=== PATIENT | male | born 1955 | race Caucasian/White ===

== ENCOUNTER 2017-11-30 22:28 | Observation (INO) | payer MEDICARE, MEDICAID, SELFPAY ==
[2017-11-30 22:29] VITALS: BP 141/94; PULSE 90; RESP 15; TEMP 37.2; O2SAT 96; BMI 30.2
--- NOTE | 2017-11-30 22:41 | CT_ITS ---
CT Head or Brain W/O Contrast INDICATION: ALTERED MENTAL STATUS AND INCREASING CONFUSION SINCE YESTERDAYHX:DIABETES,JAW CANCER,OSTEOGENISIS IMPERFECTA COMPARISON: May 28, 2016 , August 29, 2015 TECHNIQUE: Noncontrast axial CT examination of the brain. Radiation dose optimization technique applied. FINDINGS: The ventricular system is prominent in size, unchanged compared to the prior study with colpocephalic appearance suggestive of (partial) absence of the corpus callosum. Left anterior temporal arachnoid cyst is stable. Toure-white matter junction is distinct. There is no evidence of acute intracranial hemorrhage, mass effect, midline shift, or abnormal extra-axial collection. The calvarium is intact and the visualized paranasal sinuses and mastoid air cells are clear. 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 Left anterior temporal arachnoid cyst, stable. No acute intracranial abnormality. at 0017 Reported and signed by: Rosanna Laurent MD Electronically Signed: Rosanna Laurent MD at 23:15 EDT Tel , Service support ,
[2017-11-30 22:52] LABS: Absolute Neutrophil Count 4.6 X10^3/uL (2.0-7.7); Basophil# 0.02 X10^3/uL; Basophil% 0.2 % (0-1); Eosinophil# 0.18 X10^3/uL; Eosinophils% 2.2 % (0-5); Hematocrit 42.9 % (40-54); Hemoglobin 13.8 g/dl (13.0-16.5); Lymphocyte % 35.7 % (19-41); Mean Corp Hgb Conc 32.2 g/gl (32-36); Mean Corpuscular Hgb 29.2 pg (27.0-32.0); Mean Corpuscular Volume 90.7 fL (80-94); Mean Platelet Vol. 10.3 fl (6.2-12.0); Monocyte# 0.45 X10^3/uL; Monocyte% 5.5 % (0-10); Neutrophil # 4.56 X10^3/uL (2.7-7.7); Neutrophil % 56.3 % (47-70); Platelet Count 301 K/mm3 (150-450); RBC Distribution Width CV 15.5 % (11.6-14.6); RBC Distribution Width SD 51.6 fl (35.1-43.9); Red Blood Count 4.73 M/mm3 (4.6-6.2); White Blood Count 8.1 K/mm3 (4.4-11.0)
[2017-11-30 22:54] LABS: POSITIVE COUNT NO; POSITIVE DIFFERENTIAL NO; POSITIVE MORPHOLOGY NO
[2017-11-30 23:06] LABS: Bacteria 0 SEEN /hpf (None Seen); Mucous, Urine 0 SEEN /hpf (<or=2+); Red Blood Cells-Urine 0 SEEN /hpf (0-5); White Blood Cells 0 SEEN /hpf (0-5)
[2017-11-30 23:07] LABS: Color, Urine Yellow (Yellow); Glucose, Dipstick Normal (Normal); Ketone-Dipstick Negative (Negative); Leukocyte Esterase-Dipstick Negative /ul (Negative); Nitrite-Dipstick Negative (Negative); Occult Blood-Urine Negative /ul (Negative); Protein-Dipstick Negative (Negative); Urine Bilirubin Dipstick Negative (Negative); Urine Clarity Clear (Clear); Urine Urobilinogen Normal (Normal)
--- NOTE | 2017-11-30 23:08 | ED.VISSUMM ---
- ER Visit Summary Date of Service: 11/30/17 Chief Complaint: Sent to ER for evaluation. History of Present Illness: The patient is a 62 M is disoriented to time and place who answers no to every question asked. Review of old records reveals history of type 2 diabetes and encephalopathy. He also had surgery for a right intertrochanteric fracture. He is on Xarelto. Uncertain why. Physical Examination: Vital signs are marked for slight elevation blood pressure 141/94. Head is atraumatic no cephalic. Pupils equal round reactive. Extra muscle intact. TMs are normal. Posterior pharynx without erythema or exudate. Trachea is midline. No carotid bruit. Neck is supple. Heart is regular without murmur, gallop or rub. Lungs are clear to auscultation. Abdomen is soft nontender. He has evidence of progressive disease lower extremity with discolored feet. Cap refill is normal. Alert but not oriented. There is a slight facial droop noted on the left. He moves all extremities. There is no clonus or Babinski sign noted. Test Results: CT of the head reveals no change from prior. He has a left arachnoid cyst noted. CBC is normal. Electrode panel is normal. Hepatic panel is normal. UA is normal. Emergency Department Course and Treatment: Because he is on Xarelto change in mental status will obtain CT to rule out intracranial process. Metabolic infectious workup was undertaken as well and a CBC and electrode panel was ordered as well as UA. I was told by his nurse that state he had nausea and vomiting. Treatment Plan: is present. She states he normally is oriented. He has not been behaving normally for the past 24-48 hours. He was admitted in the past for change in mental status and no cause was determined. Since patient is on Xarelto lumbar puncture is contraindicated. Disposition: Admit [facility] for acute mental status change/encephalopathy unknown etiology Impression: 1. Acute mental status change/encephalopathy of unknown etiology 2. History of type 2 diabetes This note was generated with [employer] dictation software. It may contain incorrect words, spelling, and punctuation that were not noted in review of the chart prior to signing ED Disposition - Plan for ED Patient: Disposition: Acute Care Hospital [facility] Chief Complaint: Confusion Referrals: [facility] Doctor,Out of [Primary Care Provider] -
[2017-11-30 23:11] LABS: AST(SGOT) 15 U/L (15-37); Alanine Aminotransfer ALT/SGPT 22 U/L (16-61); Albumin, Serum 4.2 g/dL (3.2-5.0); Alkaline Phosphatase 57 U/L (45-117); Anion Gap 13 (5-15); BUN 13 mg/dL (7-18); BUN/Creat Ratio 19.8 RATIO (10-20); Bilirubin, Direct 0.11 mg/dL (0.00-0.30); Chloride 104 mmol/L (98-107); Creatinine, Serum 0.66 mg/dL (0.70-1.30); EST Glomerular Filtration Rate 130 mL/min (>60); Est Glom Filt Rate - Afr Amer 158 mL/min (>60); Estimated Creatinine Clearance 134.92 ml/min; Globulin 3.8 g/dL (2.2-4.2); Glucose 155 mg/dL (74-106); Potassium 4.1 mmol/L (3.5-5.1); Sodium Level 140 mmol/L (136-145)
[2017-11-30 23:13] LABS: Squamous Epithelial Cells - UA 0-5 SEEN /hpf (0-5)
--- NOTE | 2017-11-30 23:13 | ED.DCSUM_ITS ---
- ER Visit Summary Date of Service: 11/30/17 Chief Complaint: Sent to ER for evaluation. History of Present Illness: The patient is a 62 M is disoriented to time and place who answers no to every question asked. Review of old records reveals history of type 2 diabetes and encephalopathy. He also had surgery for a right intertrochanteric fracture. He is on Xarelto. Uncertain why. Physical Examination: Vital signs are marked for slight elevation blood pressure 141/94. Head is atraumatic no cephalic. Pupils equal round reactive. Extra muscle intact. TMs are normal. Posterior pharynx without erythema or exudate. Trachea is midline. No carotid bruit. Neck is supple. Heart is regular without murmur, gallop or rub. Lungs are clear to auscultation. Abdomen is soft nontender. He has evidence of progressive disease lower extremity with discolored feet. Cap refill is normal. Alert but not oriented. There is a slight facial droop noted on the left. He moves all extremities. There is no clonus or Babinski sign noted. Test Results: CT of the head reveals no change from prior. He has a left arachnoid cyst noted. CBC is normal. Electrode panel is normal. Hepatic panel is normal. UA is normal. Emergency Department Course and Treatment: Because he is on Xarelto change in mental status will obtain CT to rule out intracranial process. Metabolic infectious workup was undertaken as well and a CBC and electrode panel was ordered as well as UA. I was told by his nurse that state he had nausea and vomiting. Treatment Plan: is present. She states he normally is oriented. He has not been behaving normally for the past 24-48 hours. He was admitted in the past for change in mental status and no cause was determined. Since patient is on Xarelto lumbar puncture is contraindicated. Disposition: Admit [facility] for acute mental status change/encephalopathy unknown etiology Impression: 1. Acute mental status change/encephalopathy of unknown etiology 2. History of type 2 diabetes This note was generated with [employer] dictation software. It may contain incorrect words, spelling, and punctuation that were not noted in review of the chart prior to signing ED Disposition - Plan for ED Patient: Disposition: Acute Care Hospital [facility] Chief Complaint: Confusion Referrals: [facility] Doctor,Out of [Primary Care Provider] -
[2017-11-30 23:16] LABS: Bedside Glucose 164 mg/dL (70-110)
[2017-11-30 23:27] VITALS: BP 153/100; PULSE 85; RESP 12; O2SAT 96
[2017-12-01] VITALS (14 sets, daily range): BP systolic 123–143; BP diastolic 76–85; PULSE 78–101; RESP 16–18; TEMP 37.2–37.4; O2SAT 94–97; BMI 26.8
--- NOTE | 2017-12-01 03:04 | HP.PCM_ITS ---
Problem List (1) Right leg DVT Status: Acute (2) Encephalopathy Status: Acute (3) Fracture, intertrochanteric, right femur Status: Acute (4) Chronic back pain Status: Chronic (5) Type II diabetes mellitus Status: Chronic History of Present Illness Date of Admission: 12/01/17 Chief Complaint: Acute encephalopathy The patient is a 62 year old male w/ h/o encephalopathy, right leg DVT, and HTN admitted for encephalopathy. He was confused this morning per . He is a poor historian. He went to rehab on Friday and did well. Yesterday, he was mostly sleepy and slept for most of the day. This morning he is not himself and cannot answer his with coherent answers. Nothing appeared to make his confusion better or worse. His confusion was severe that it interfered with his ADLs. His became concerned and brought him to the ED for further workup. Past Medical History Past Medical History (Chronic Problems): Chronic Problems Low back pain (Chronic) Type II diabetes mellitus (Chronic) Chronic back pain (Chronic) Osteogenesis imperfecta (Chronic) Allergies fentanyl Adverse Reaction (Verified 12/01/17 02:15) lethargic, unresponsive, hallucinations morphine Adverse Reaction (Verified 12/01/17 02:15) lethargic, unresponsive, hallucinations IVP DYE Allergy (Uncoded 12/01/17 02:15) Anaphylaxis Home Medications: Ambulatory Orders Medication Instructions Recorded Ascorbic Acid [Vitamin C] 1,000 mg PO BIDCM 06/17/15 Furosemide [Lasix] 10 mg PO DAILY 06/17/15 Liraglutide [Victoza 3-Amrik] 1.2 mg SQ DAILY 06/17/15 Metformin HCl 1,000 mg PO BID 06/17/15 Vitamin E 400 unit PO DAILY 06/17/15 Calcium Carbonate [Calcium] 600 mg PO BID #0 08/29/15 Insulin Lispro [Humalog] See Protocol SQ 4X/DAY 08/29/15 Cholecalciferol (Vitamin D3) 1 capsule PO DAILY 05/28/16 [Vitamin D3] Fenofibrate,Micronized [Lofibra] 200 mg PO DAILY 05/28/16 Baclofen [Baclofen] 20 mg PO TID 12/01/17 Cyanocobalamin (Vitamin B-12) 2,500 mcg PO DAILY 12/01/17 [Vitamin B-12] Docusate Sodium [Colace] 100 mg PO BID 12/01/17 Folic Acid 0.8 mg PO DAILY@0800 12/01/17 GlipiZIDE [Glucotrol] 10 mg PO 4X/DAY 12/01/17 Hydrocodone Bitart/Apap 5-325 1 - 2 tablet PO Q6H PRN PRN 12/01/17 [[place] 5MG-325MG] Metformin HCl 500 mg PO QHS 12/01/17 [place]-3 Fatty Acids/Fish Oil [Fish 1,000 mg PO DAILY 12/01/17 Oil 1,000 mg Capsule] Omeprazole [Prilosec] 20 mg PO DAILY 12/01/17 Senna/Docusate Sodium [Senokot-S] 2 tablet PO MOWEFR 12/01/17 Sertraline HCl [Zoloft] 50 mg PO QHS 12/01/17 Tadalafil [Cialis] 5 mg PO PRN PRN 12/01/17 Surgical History: appendectomy, total knee arthroplasty, - - Hiatal hernia surgery. Psychiatric History: No pertinent psych hx Smoking Status: Former smoker Tobacco Use: Non-smoker Alcohol: None Drugs: None - *Family History Maternal History Items: - - No coronary artery disease. Alcohol abuse. Paternal History Items: Stroke Review of Systems Constitutional: Denies: Chills, Fever, Weight Change HEENT: Denies: Head Aches, Sinus Congestion, Sinus Drainage Cardiovascular: Denies: Chest Pain, Palpitations Respiratory: Denies: Cough, Shortness of breath at rest, Sputum production Gastrointestinal: Denies: Abdominal Pain, Nausea, Vomiting Genitourinary: Denies: Dysuria Musculoskeletal: Denies: Joint Pain, Joint Tenderness Skin: Denies: Rash, Wounds Neurological: Denies: Numbness, Tingling, Focal weakness Psychiatric: Denies: Anxiety, Depression, Homicidal Ideations, Suicidal Ideations Hematologic/ Lymphatic: Denies: Easy Bruising, Easy Bleeding VTE Information - Inpt Only VTE Present on Admission: No VTE Mechan Device Prophylaxis: None VTE Pharm Prophylaxis ordered?: No Patient Problems: Active and Suspected Problems Right leg DVT (Acute) - Physical Exam General: Alert, Oriented x3, Cooperative HEENT: Atraumatic, PERRLA, EOMI, Normocephalic Neck: Supple, No JVD, Negative Carotid Bruits Lungs: Clear to auscultation, Normal air movement Cardiovascular: Regular rate, No murmurs Abdomen: Bowel Sounds Present, Soft, Non Tender Extremities: No edema, Capillary Refill Less than 3 Seconds Skin: No rashes, No breakdown Musculoskeletal: No Tenderness to Palpation of Joints or Extremities Neurological: Cranial nerves II-XII grossly intact Psych/Mental Status: Normal Affect, Appropriate Vital Signs Temp Pulse Resp BP Pulse Ox 99.2 F H 86 18 128/78 H 96 12/01/17 02:09 12/01/17 02:09 12/01/17 02:09 12/01/17 02:09 12/01/17 02:09 Oxygen Delivery Method Room Air Weight: 102.5 kg Body Mass Index (BMI) 26.8 Assessment/Plan Active and Suspected Problems Right leg DVT (Acute) 62 year old male w/ h/o encephalopathy, right leg DVT, and HTN admitted for encephalopathy. 1) Acute encephalopathy: Unclear etiology. Possible secondary to high dose narcotics and flexeril. He was on norco, percocet and flexeril. Will consider neuro to possible r/o subclinical seizure if persistent. Will get B12, folate, RPR, ammonia, and TSH. Will hold anticoagulation if just in case pt turns for the worse and needs LP in the future. Cultures pending. 2) Right leg DVT: Years ago. Per pt was on xarelto but not on meds list. Probably won't need further anticoagulation given one time incident and no e/o PE. No trigger noted. 3) Chronic pain: Will hold sedative meds. Will also try to avoid NSAID as well given possible JULITO with NSAID. Will give acetaminophen if needed. 4) DMII: Resume home meds. Monitor.
[2017-12-01 03:19] LABS: AST(SGOT) 13 U/L (15-37); Alanine Aminotransfer ALT/SGPT 21 U/L (16-61); Albumin, Serum 3.8 g/dL (3.2-5.0); Alkaline Phosphatase 51 U/L (45-117); Bilirubin, Direct 0.11 mg/dL (0.00-0.30); Globulin 3.7 g/dL (2.2-4.2); Protein, Total 7.5 g/dL (6.4-8.2)
[2017-12-01 03:22] LABS: Vista UDS pH Range 7
[2017-12-01] MEDS: 0.9% NaCl Peripheral Flush Adult/Peds IV (03:50)
[2017-12-01 03:59] LABS: Amphetamine Urine VISTA NEGATIVE (<1000 ng/mL); Barbiturate Urine VISTA NEGATIVE (< 200 ng/mL); Benzodiazepine Urine VISTA NEGATIVE (< 200 ng/mL); Cocaine Urine VISTA NEGATIVE (< 300 ng/mL); Ecstacy Urine VISTA NEGATIVE (< 500 ng/mL); Methadone Urine VISTA NEGATIVE (< 300 ng/mL); PCP Urine VISTA NEGATIVE (< 25 ng/mL); THC Urine VISTA NEGATIVE (< 50 ng/mL)
[2017-12-01] MEDS: Acetaminophen 325 MG Tablet 650 MG PO (04:31)
[2017-12-01 06:07] LABS: Absolute Lymphocyte Count 3.22 X10^3/ul (0.83-4.51); Absolute Neutrophil Count 5.8 X10^3/uL (2.0-7.7); Basophil# 0.02 X10^3/uL; Basophil% 0.2 % (0-1); Eosinophil# 0.18 X10^3/uL; Eosinophils% 1.8 % (0-5); Hematocrit 39.6 % (40-54); Hemoglobin 13.1 g/dl (13.0-16.5); Lymphocyte # 3.22 X10^3/ul (4.0); Lymphocyte % 32.3 % (19-41); Mean Corp Hgb Conc 33.1 g/gl (32-36); Mean Corpuscular Hgb 29.8 pg (27.0-32.0); Mean Platelet Vol. 10.2 fl (6.2-12.0); Monocyte# 0.71 X10^3/uL; Monocyte% 7.1 % (0-10); Neutrophil # 5.82 X10^3/uL (2.7-7.7); Neutrophil % 58.4 % (47-70); Platelet Count 281 K/mm3 (150-450); RBC Distribution Width CV 15.5 % (11.6-14.6); RBC Distribution Width SD 50.9 fl (35.1-43.9)
[2017-12-01 06:17] LABS: POSITIVE COUNT NO; POSITIVE DIFFERENTIAL NO; POSITIVE MORPHOLOGY NO
[2017-12-01 06:30] LABS: Anion Gap 10 (5-15); BUN 12 mg/dL (7-18); BUN/Creat Ratio 20.3 RATIO (10-20); Calcium,Total 9.4 mg/dL (8.5-10.1); Chloride 107 mmol/L (98-107); Creatinine, Serum 0.59 mg/dL (0.70-1.30); EST Glomerular Filtration Rate 147 mL/min (>60); Est Glom Filt Rate - Afr Amer 178 mL/min (>60); Glucose 131 mg/dL (74-106); Potassium 3.7 mmol/L (3.5-5.1); Sodium Level 142 mmol/L (136-145)
[2017-12-01 06:56] LABS: Bedside Glucose 157 mg/dL (70-110)
[2017-12-01] MEDS: Docusate Sodium 100 MG Capsule PO ×2 (09:32→22:37)
[2017-12-01] MEDS: Calcium Carbonate 500 MG Tablet PO ×2 (09:32→22:38)
[2017-12-01] MEDS: Pantoprazole Sodium 20 MG Tablet PO (09:33)
[2017-12-01] MEDS: Folic Acid 1 MG Tablet PO (09:33)
[2017-12-01] MEDS: Senna/Docusate Sodium 1 Tablet 2 TABLET PO (09:33)
[2017-12-01] MEDS: Ascorbic Acid 500 MG Tablet 1000 MG PO ×2 (09:33→18:09)
[2017-12-01] MEDS: Omega-3 Acid Ethyl Esters 1 GM Capsule PO (09:33)
[2017-12-01] MEDS: Fenofibrate 145 MG Tablet PO (09:34)
[2017-12-01] MEDS: Vitamin E 400 UNITS Capsule PO (09:34)
[2017-12-01] MEDS: metFORMIN HCl 1,000 MG Tablet 1000 MG PO (09:34)
--- NOTE | 2017-12-01 09:34 | CASEMGMT ---
RN KYA Face to Face with patient for initial transition planning/care coordination assessment. RN CM introduced self and role at [facility]. Patient sitting in up in bed, alert and confused. Patient willing to participate in assessment and is able to answer some questions. See link attached. Patient wishes to discharge home, denies need for home health at this time. Patient lives with and CM will follow-up with to discuss discharge needs. CM to follow for discharge planning needs that may arise. Disposition Plan: TBD. CM to follow-up with to discuss discharge needs and plan. Will monitor progress with therapy.
--- NOTE | 2017-12-01 09:46 | NURSING ---
paged from [facility] for the second time as primary RN verbalized concern regarding patient's level of confusion. Called Rehab unit to verify if Dr. Swain has rounded there yet, informed that is not here this week that is covering. Calling answering service whom told us this a.m. was covering, verified that they will page and inform the correct physician as is covering. Informed them we are requesting he see this patient as soon as possible, answering service said they will inform of this. PRimary RN updated.
[2017-12-01 10:42] LABS: Vitamin B12 > 2000 pg/mL (211-911)
[2017-12-01 12:01] LABS: Bedside Glucose 225 mg/dL (70-110)
--- NOTE | 2017-12-01 15:07 | PCM.CONS.GEN ---
Problem List (1) Encephalopathy Status: Acute Reason for Consult Date of Consultation: 12/01/17 Reason for Consultation: AMS History of Present Illness: The patient is a 62 year old CM with PMH HLD, DM, depression, H/O encephalopathy, H/O DVT per documentation admitted with AMS. History is obtained from the patient and medical records and documentation. Patient is a poor historian. Per he was doing physical therapy on Friday morning (11/29/17), then suddenly was shaking, found to have SBP >200s at home, then went to sleep, slept the whole day, the next day when he woke up was confused, had vomiting later on and he was admitted to [facility] for further evaluation. Per he has osteogenesis imperfecta and has recurrent fractures, had left leg fracture in June 2017 for which he has been on [place] and Flexeril. His Flexeril was stopped on Friday and he was started on Baclofen 20 mg TID. Patient's denies any new onset dementia, urinary incontinence and per he has been bed bound or using wheel chair since last summer, denies any frequent falls, may fall once in 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 Per documentation patient is being admitted with AMS, was on baclofen and multiple narcotics. Per hospitalist documentation patient was sleepy and lethargic yesterday (11/30/17). At present patient denies any PIERCE, is very hard of hearing, denies any new onset visual disturbances, speech disturbances, focal motor weakness, sensory loss, neck or back pain. Labs: WBC, Creatinine and UA normal on admission, UDS negative. [] Past Medical History Past Medical History (Chronic Problems): Chronic Problems Low back pain (Chronic) Type II diabetes mellitus (Chronic) Chronic back pain (Chronic) Osteogenesis imperfecta (Chronic) Allergies fentanyl Adverse Reaction (Verified 12/01/17 02:15) lethargic, unresponsive, hallucinations morphine Adverse Reaction (Verified 12/01/17 02:15) lethargic, unresponsive, hallucinations IVP DYE Allergy (Uncoded 12/01/17 02:15) Anaphylaxis Home Medications: Ambulatory Orders Medication Instructions Recorded Ascorbic Acid [Vitamin C] 1,000 mg PO BIDCM 06/17/15 Furosemide [Lasix] 10 mg PO DAILY 06/17/15 Liraglutide [Victoza 3-Amrik] 1.2 mg SQ DAILY 06/17/15 Metformin HCl 1,000 mg PO BID 06/17/15 Vitamin E 400 unit PO DAILY 06/17/15 Calcium Carbonate [Calcium] 600 mg PO BID #0 08/29/15 Insulin Lispro [Humalog] See Protocol SQ 4X/DAY 08/29/15 Cholecalciferol (Vitamin D3) 1 capsule PO DAILY 05/28/16 [Vitamin D3] Fenofibrate,Micronized [Lofibra] 200 mg PO DAILY 05/28/16 Baclofen [Baclofen] 20 mg PO TID 12/01/17 Cyanocobalamin (Vitamin B-12) 2,500 mcg PO DAILY 12/01/17 [Vitamin B-12] Docusate Sodium [Colace] 100 mg PO BID 12/01/17 Folic Acid 0.8 mg PO DAILY@0800 12/01/17 GlipiZIDE [Glucotrol] 10 mg PO 4X/DAY 12/01/17 Hydrocodone Bitart/Apap 5-325 1 - 2 tablet PO Q6H PRN PRN 12/01/17 [[place] 5MG-325MG] Metformin HCl 500 mg PO QHS 12/01/17 [place]-3 Fatty Acids/Fish Oil [Fish 1,000 mg PO DAILY 12/01/17 Oil 1,000 mg Capsule] Omeprazole [Prilosec] 20 mg PO DAILY 12/01/17 Senna/Docusate Sodium [Senokot-S] 2 tablet PO MOWEFR 12/01/17 Sertraline HCl [Zoloft] 50 mg PO QHS 12/01/17 Tadalafil [Cialis] 5 mg PO PRN PRN 12/01/17 Surgical History: appendectomy, total knee arthroplasty, - - Hiatal hernia surgery. Psychiatric History: No pertinent psych hx Lives: Spouse/ Significant Other Smoking Status: Current every day smoker Tobacco Use: Non-smoker Alcohol: None Drugs: None - *Family History Maternal History Items: - - No coronary artery disease. Alcohol abuse. Paternal History Items: Stroke Review of Systems Constitutional: Reports: - - complete ROS negative except as documented in HPI Patient Problems: Active and Suspected Problems Right leg DVT (Acute) - Physical Exam General: Alert HEENT: Normocephalic Neck: Supple Lungs: Clear to auscultation Cardiovascular: Normal S1, Normal S2 Abdomen: Bowel Sounds Present Extremities: No clubbing Skin: No rashes Musculoskeletal: No Tenderness to Palpation of Joints or Extremities Neurological: - - awake, alert, AoAx2, CN 2-12 grossly intact, moves all 4 extremities, denies any sensory loss, no cerebellar signs, very hard of hearing, limited neurology examination, Reflexes + B/L B/S/T/K/A, gait deferred Psych/Mental Status: Normal Affect Vital Signs Temp Pulse Resp BP Pulse Ox 99.3 F H 88 18 123/76 H 94 12/01/17 08:00 12/01/17 11:05 12/01/17 08:00 12/01/17 08:00 12/01/17 08:00 Oxygen Delivery Method Room Air Weight: 102.5 kg Body Mass Index (BMI) 26.8 Intake and Output for Last 24 Hours 11/29/17 11/30/17 12/01/17 22:59 23:59 23:59 Intake Total 110 / 110 Balance 110 / 110 Laboratory Tests Past 24 Hrs 12/01/17 12/01/17 12/01/17 02:37 02:37 02:37 WBC RBC Hgb Hct MCV MCH MCHC RDW RDW Differential Plt Count MPV Immature Gran % (Auto) Neut % (Auto) Lymph % (Auto) [place] % (Auto) Eos % (Auto) Baso % (Auto) Absolute Neuts (auto) Absolute Lymphs (auto) Total Counted Sodium Potassium Chloride Carbon Dioxide Anion Gap BUN Creatinine Estim Creat Clear Calc Est GFR (MDRD) Af Amer Est GFR (MDRD) Non-Af BUN/Creatinine Ratio Glucose Calcium Total Bilirubin 0.40 Direct Bilirubin 0.11 AST 13 L ALT 21 Alkaline Phosphatase 51 Ammonia Troponin I < 0.02 Total Protein 7.5 Albumin 3.8 Globulin 3.7 Vitamin B12 > 2000 H Folate 59.60 H RPR 12/01/17 12/01/17 12/01/17 02:37 02:37 05:40 WBC 10.0 RBC 4.40 L Hgb 13.1 Hct 39.6 L MCV 90.0 MCH 29.8 MCHC 33.1 RDW 15.5 H RDW Differential 50.9 H Plt Count 281 MPV 10.2 Immature Gran % (Auto) 0.200 Neut % (Auto) 58.4 Lymph % (Auto) 32.3 [place] % (Auto) 7.1 Eos % (Auto) 1.8 Baso % (Auto) 0.2 Absolute Neuts (auto) 5.8 Absolute Lymphs (auto) 3.22 Total Counted Not Reportable Sodium Potassium Chloride Carbon Dioxide Anion Gap BUN Creatinine Estim Creat Clear Calc Est GFR (MDRD) Af Amer Est GFR (MDRD) Non-Af BUN/Creatinine Ratio Glucose Calcium Total Bilirubin Direct Bilirubin AST ALT Alkaline Phosphatase Ammonia 24.0 Troponin I Total Protein Albumin Globulin Vitamin B12 Folate RPR Pending 12/01/17 05:40 WBC RBC Hgb Hct MCV MCH MCHC RDW RDW Differential Plt Count MPV Immature Gran % (Auto) Neut % (Auto) Lymph % (Auto) [place] % (Auto) Eos % (Auto) Baso % (Auto) Absolute Neuts (auto) Absolute Lymphs (auto) Total Counted Sodium 142 Potassium 3.7 Chloride 107 Carbon Dioxide 25.0 Anion Gap 10 BUN 12 Creatinine 0.59 L Estim Creat Clear Calc 163.60 Est GFR (MDRD) Af Amer 178 Est GFR (MDRD) Non-Af 147 BUN/Creatinine Ratio 20.3 H Glucose 131 H Calcium 9.4 Total Bilirubin Direct Bilirubin AST ALT Alkaline Phosphatase Ammonia Troponin I Total Protein Albumin Globulin Vitamin B12 Folate RPR POC Glucose 12/01/17 12/01/17 11:54 06:46 POC Glucose 225 H 157 H Assessment/Plan Active and Suspected Problems Right leg DVT (Acute) The patient is a 62 year old CM with PMH HLD, DM, depression, H/O encephalopathy, H/O DVT per documentation admitted with AMS. History is obtained from the patient and medical records and documentation. Patient is a poor historian. Per he was doing physical therapy on Friday morning (11/29/17), then suddenly was shaking, found to have SBP >200s at home, then went to sleep, slept the whole day, the next day when he woke up was confused, had vomiting later on and he was admitted to [facility] for further evaluation. Per he has osteogenesis imperfecta and has recurrent fractures, had left leg fracture in June 2017 for which he has been on [place] and Flexeril. His Flexeril was stopped on Friday and he was started on Baclofen 20 mg TID. Patient's denies any new onset dementia, urinary incontinence and per he has been bed bound or using wheel chair since last summer, denies any frequent falls, may fall once in 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 Per documentation patient is being admitted with AMS, was on baclofen and multiple narcotics. Per hospitalist documentation patient was sleepy and lethargic yesterday (11/30/17). At present patient denies any PIERCE, is very hard of hearing, denies any new onset visual disturbances, speech disturbances, focal motor weakness, sensory loss, neck or back pain. Labs: WBC, Creatinine and UA normal on admission, UDS negative. . 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 -At present patient is alert and following commands, though a poor historian, there is no witnessed seizures, no history of seizures, will hold off on EEG -On Baclofen 20mg PO TID at home, avoid abrupt withdrawal, can decrease the dose, will defer to primary team -GI/DVT prophylaxis -PT/OT -Fall precautions -Please call with questions if any -Thank you for allowing us to participate in patient's care and management. I spent 60 minutes taking history, doing physical examination, reviewing medical records, coordinating care and counseling patient and his family. Code Visit Inpatient E&M: 03670 Init Hosp L3
--- NOTE | 2017-12-01 15:17 | CON.PCM_ITS ---
Problem List (1) Encephalopathy Status: Acute Reason for Consult Date of Consultation: 12/01/17 Reason for Consultation: AMS History of Present Illness: The patient is a 62 year old CM with PMH HLD, DM, depression, H/O encephalopathy , H/O DVT per documentation admitted with AMS. History is obtained from the patient and medical records and documentation. Patient is a poor historian. Per he was doing physical therapy on Friday morning (11/29/17), then suddenly was shaking, found to have SBP >200s at home, then went to sleep, slept the whole day, the next day when he woke up was confused, had vomiting later on and he was admitted to [facility] for further evaluation. Per he has osteogenesis imperfecta and has recurrent fractures, had left leg fracture in June 2017 for which he has been on [place] and Flexeril. His Flexeril was stopped on Friday and he was started on Baclofen 20 mg TID. Patient's denies any new onset dementia, urinary incontinence and per he has been bed bound or using wheel chair since last summer, denies any frequent falls, may fall once in 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 Per documentation patient is being admitted with AMS, was on baclofen and multiple narcotics. Per hospitalist documentation patient was sleepy and lethargic yesterday (11/30/17). At present patient denies any PIERCE, is very hard of hearing, denies any new onset visual disturbances, speech disturbances, focal motor weakness, sensory loss, neck or back pain. Labs: WBC, Creatinine and UA normal on admission, UDS negative. [] Past Medical History Past Medical History (Chronic Problems): Chronic Problems Low back pain (Chronic) Type II diabetes mellitus (Chronic) Chronic back pain (Chronic) Osteogenesis imperfecta (Chronic) Allergies fentanyl Adverse Reaction (Verified 12/01/17 02:15) lethargic, unresponsive, hallucinations morphine Adverse Reaction (Verified 12/01/17 02:15) lethargic, unresponsive, hallucinations IVP DYE Allergy (Uncoded 12/01/17 02:15) Anaphylaxis Home Medications: Ambulatory Orders Medication Instructions Recorded Ascorbic Acid [Vitamin C] 1,000 mg PO BIDCM 06/17/15 Furosemide [Lasix] 10 mg PO DAILY 06/17/15 Liraglutide [Victoza 3-Amrik] 1.2 mg SQ DAILY 06/17/15 Metformin HCl 1,000 mg PO BID 06/17/15 Vitamin E 400 unit PO DAILY 06/17/15 Calcium Carbonate [Calcium] 600 mg PO BID #0 08/29/15 Insulin Lispro [Humalog] See Protocol SQ 4X/DAY 08/29/15 Cholecalciferol (Vitamin D3) 1 capsule PO DAILY 05/28/16 [Vitamin D3] Fenofibrate,Micronized [Lofibra] 200 mg PO DAILY 05/28/16 Baclofen [Baclofen] 20 mg PO TID 12/01/17 Cyanocobalamin (Vitamin B-12) 2,500 mcg PO DAILY 12/01/17 [Vitamin B-12] Docusate Sodium [Colace] 100 mg PO BID 12/01/17 Folic Acid 0.8 mg PO DAILY@0800 12/01/17 GlipiZIDE [Glucotrol] 10 mg PO 4X/DAY 12/01/17 Hydrocodone Bitart/Apap 5-325 1 - 2 tablet PO Q6H PRN PRN 12/01/17 [[place] 5MG-325MG] Metformin HCl 500 mg PO QHS 12/01/17 Carver-3 Fatty Acids/Fish Oil [Fish 1,000 mg PO DAILY 12/01/17 Oil 1,000 mg Capsule] Omeprazole [Prilosec] 20 mg PO DAILY 12/01/17 Senna/Docusate Sodium [Senokot-S] 2 tablet PO MOWEFR 12/01/17 Sertraline HCl [Zoloft] 50 mg PO QHS 12/01/17 Tadalafil [Cialis] 5 mg PO PRN PRN 12/01/17 Surgical History: appendectomy, total knee arthroplasty, - - Hiatal hernia surgery. Psychiatric History: No pertinent psych hx Lives: Spouse/ Significant Other Smoking Status: Current every day smoker Tobacco Use: Non-smoker Alcohol: None Drugs: None - *Family History Maternal History Items: - - No coronary artery disease. Alcohol abuse. Paternal History Items: Stroke Review of Systems Constitutional: Reports: - - complete ROS negative except as documented in HPI Patient Problems: Active and Suspected Problems Right leg DVT (Acute) - Physical Exam General: Alert HEENT: Normocephalic Neck: Supple Lungs: Clear to auscultation Cardiovascular: Normal S1, Normal S2 Abdomen: Bowel Sounds Present Extremities: No clubbing Skin: No rashes Musculoskeletal: No Tenderness to Palpation of Joints or Extremities Neurological: - - awake, alert, AoAx2, CN 2-12 grossly intact, moves all 4 extremities, denies any sensory loss, no cerebellar signs, very hard of hearing , limited neurology examination, Reflexes + B/L B/S/T/K/A, gait deferred Psych/Mental Status: Normal Affect Vital Signs Temp Pulse Resp BP Pulse Ox 99.3 F H 88 18 123/76 H 94 12/01/17 08:00 12/01/17 11:05 12/01/17 08:00 12/01/17 08:00 12/01/17 08:00 Oxygen Delivery Method Room Air Weight: 102.5 kg Body Mass Index (BMI) 26.8 Intake and Output for Last 24 Hours 11/29/17 11/30/17 12/01/17 22:59 23:59 23:59 Intake Total 110 / 110 Balance 110 / 110 Laboratory Tests Past 24 Hrs 12/01/17 12/01/17 12/01/17 02:37 02:37 02:37 WBC RBC Hgb Hct MCV MCH MCHC RDW RDW Differential Plt Count MPV Immature Gran % (Auto) Neut % (Auto) Lymph % (Auto) Garland % (Auto) Eos % (Auto) Baso % (Auto) Absolute Neuts (auto) Absolute Lymphs (auto) Total Counted Sodium Potassium Chloride Carbon Dioxide Anion Gap BUN Creatinine Estim Creat Clear Calc Est GFR (MDRD) Af Amer Est GFR (MDRD) Non-Af BUN/Creatinine Ratio Glucose Calcium Total Bilirubin 0.40 Direct Bilirubin 0.11 AST 13 L ALT 21 Alkaline Phosphatase 51 Ammonia Troponin I < 0.02 Total Protein 7.5 Albumin 3.8 Globulin 3.7 Vitamin B12 > 2000 H Folate 59.60 H RPR 12/01/17 12/01/17 12/01/17 02:37 02:37 05:40 WBC 10.0 RBC 4.40 L Hgb 13.1 Hct 39.6 L MCV 90.0 MCH 29.8 MCHC 33.1 RDW 15.5 H RDW Differential 50.9 H Plt Count 281 MPV 10.2 Immature Gran % (Auto) 0.200 Neut % (Auto) 58.4 Lymph % (Auto) 32.3 Garland % (Auto) 7.1 Eos % (Auto) 1.8 Baso % (Auto) 0.2 Absolute Neuts (auto) 5.8 Absolute Lymphs (auto) 3.22 Total Counted Not Reportable Sodium Potassium Chloride Carbon Dioxide Anion Gap BUN Creatinine Estim Creat Clear Calc Est GFR (MDRD) Af Amer Est GFR (MDRD) Non-Af BUN/Creatinine Ratio Glucose Calcium Total Bilirubin Direct Bilirubin AST ALT Alkaline Phosphatase Ammonia 24.0 Troponin I Total Protein Albumin Globulin Vitamin B12 Folate RPR Pending 12/01/17 05:40 WBC RBC Hgb Hct MCV MCH MCHC RDW RDW Differential Plt Count MPV Immature Gran % (Auto) Neut % (Auto) Lymph % (Auto) Garland % (Auto) Eos % (Auto) Baso % (Auto) Absolute Neuts (auto) Absolute Lymphs (auto) Total Counted Sodium 142 Potassium 3.7 Chloride 107 Carbon Dioxide 25.0 Anion Gap 10 BUN 12 Creatinine 0.59 L Estim Creat Clear Calc 163.60 Est GFR (MDRD) Af Amer 178 Est GFR (MDRD) Non-Af 147 BUN/Creatinine Ratio 20.3 H Glucose 131 H Calcium 9.4 Total Bilirubin Direct Bilirubin AST ALT Alkaline Phosphatase Ammonia Troponin I Total Protein Albumin Globulin Vitamin B12 Folate RPR POC Glucose 12/01/17 12/01/17 11:54 06:46 POC Glucose 225 H 157 H Assessment/Plan Active and Suspected Problems Right leg DVT (Acute) The patient is a 62 year old CM with PMH HLD, DM, depression, H/O encephalopathy , H/O DVT per documentation admitted with AMS. History is obtained from the patient and medical records and documentation. Patient is a poor historian. Per he was doing physical therapy on Friday morning (11/29/17), then suddenly was shaking, found to have SBP >200s at home, then went to sleep, slept the whole day, the next day when he woke up was confused, had vomiting later on and he was admitted to [facility] for further evaluation. Per he has osteogenesis imperfecta and has recurrent fractures, had left leg fracture in June 2017 for which he has been on [place] and Flexeril. His Flexeril was stopped on Friday and he was started on Baclofen 20 mg TID. Patient's denies any new onset dementia, urinary incontinence and per he has been bed bound or using wheel chair since last summer, denies any frequent falls, may fall once in 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 Per documentation patient is being admitted with AMS, was on baclofen and multiple narcotics. Per hospitalist documentation patient was sleepy and lethargic yesterday (11/30/17). At present patient denies any PIERCE, is very hard of hearing, denies any new onset visual disturbances, speech disturbances, focal motor weakness, sensory loss, neck or back pain. Labs: WBC, Creatinine and UA normal on admission, UDS negative. . 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 -At present patient is alert and following commands, though a poor historian, there is no witnessed seizures, no history of seizures, will hold off on EEG -On Baclofen 20mg PO TID at home, avoid abrupt withdrawal, can decrease the dose , will defer to primary team -GI/DVT prophylaxis -PT/OT -Fall precautions -Please call with questions if any -Thank you for allowing us to participate in patient's care and management. I spent 60 minutes taking history, doing physical examination, reviewing medical records, coordinating care and counseling patient and his family. Code Visit Inpatient E&M: 43152 Init Hosp L3
--- NOTE | 2017-12-01 15:29 | MRI_ITS ---
STUDY: MRI BRAIN WITHOUT CONTRAST REASON FOR EXAM: Male, 62 years old. Altered mental status TECHNIQUE: Standardized multiplanar fat and water weighted pulse sequences were obtained. COMPARISON: CT of the brain on November 30, 2017 FINDINGS: Moderate atrophy and mild periventricular white matter high signal intensity possibly representing resorption of CSF.. The ventricles are disproportionately enlarged relative to the cortical sulci and communicating hydrocephalus or NPH cannot be excluded Normal bilateral basal ganglia. Normal thalami. There is no extra-axial fluid accumulation. There is an arachnoid cyst in the left middle cranial fossa. Normal flow voids within the major intracranial circulation suggesting patency by spin echo criteria. Partial empty sella deformity of uncertain clinical significance., infundibular stalk, optic chiasm and hypothalamus. Normal tectal plate and pineal gland. Normal midbrain, edgar and medulla. Normal cerebellum. Normal basal cisterns. Normal bilateral temporal bones. Normal bilateral internal auditory canals. No demonstrated orbital abnormality, within the constraints of a routine brain study. Normal visualized paranasal sinuses. Normal calvarium and skull base. Normal visualized soft tissue structures. Normal visualized upper cervical spine. MRI/Brain without Contrast IMPRESSION: Findings which may be consistent with mild or evolving normal pressure hydrocephalus. No significant periventricular white matter ischemic changes or evidence for acute infarct Electronically Signed: Derek Cuadra MD at 20:57 EDT , Service support ,
--- NOTE | 2017-12-01 15:53 | PCM.HOSP.N ---
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 H&P, vitals, labs and plan of management reviewed. Patient has been on high-dose of muscle relaxant baclofen 20 mg 3 times daily and multiple narcotics. Seen and examined in the morning. Patient has cognitive deficit and does not remember recent events but oriented to time, place and person. Patient denies history of seizure. Patient is hard of hearing and beers hearing aids. 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 Discussed with the neurologist. Dose of baclofen decreased. Impression and plan Acute encephalopathy most probably metabolic encephalopathy complicated with polypharmacy: Meds reconciliation done. MRI brain without contrast ordered as per recommendation of the neurologist. Nursing care. Fall precaution
--- NOTE | 2017-12-01 15:57 | CASEMGMT ---
Patient's in room. Patient continues with confusion. RN CM discussed discharge needs with . states that patient has hospital bed with trapeze, wc, walker, cane, shower chair, BSC, raised toilet, and hand held shower at home. states that patient has [employer] services and his embedded case manager is Tequila Thornton [phone]. Patient receives PT and aide services for 7d/week for 7hrs/day through [facility]. Patient's states that patient may need eunice if patient returns home. Patient has previously been to [facility] in 2015 and 2016. Patient's PCP is Dr. Alicia Cope in [place]. states that if patient continues with confusion she would be interesting in SNF placement. List of in network facilities provided to . SW to follow-up with in morning.
[2017-12-01 18:06] LABS: Bedside Glucose 143 mg/dL (70-110)
[2017-12-01] MEDS: Enoxaparin 40 MG/0.4 ML Syringe SC (18:10)
[2017-12-01] MEDS: Sertraline 50 MG Tablet PO (22:37)
[2017-12-01] MEDS: Baclofen 10 MG Tablet PO (22:40)
[2017-12-01] MEDS: Insulin NPH Human 100 UNITS/ML PEN 10 UNITS SC (22:40)
[2017-12-01 22:56] LABS: Bedside Glucose 142 mg/dL (70-110)
[2017-12-02] VITALS (7 sets, daily range): BP systolic 117–133; BP diastolic 67–84; PULSE 64–83; RESP 18; TEMP 36.6–37.4; O2SAT 96
[2017-12-02] MEDS: Baclofen 10 MG Tablet PO ×2 (05:23→14:27)
[2017-12-02 06:51] LABS: Bedside Glucose 175 mg/dL (70-110)
[2017-12-02] MEDS: Folic Acid 1 MG Tablet PO (08:53)
[2017-12-02] MEDS: Ascorbic Acid 500 MG Tablet 1000 MG PO (08:53)
[2017-12-02] MEDS: Senna/Docusate Sodium 1 Tablet 2 TABLET PO (08:53)
[2017-12-02] MEDS: Docusate Sodium 100 MG Capsule PO (08:55)
[2017-12-02] MEDS: Omega-3 Acid Ethyl Esters 1 GM Capsule PO (08:55)
[2017-12-02] MEDS: Pantoprazole Sodium 20 MG Tablet PO (08:55)
[2017-12-02] MEDS: Calcium Carbonate 500 MG Tablet PO (08:56)
[2017-12-02] MEDS: Fenofibrate 145 MG Tablet PO (08:56)
[2017-12-02] MEDS: Vitamin E 400 UNITS Capsule PO (09:00)
--- NOTE | 2017-12-02 11:15 | CASEMGMT ---
Social Work Phone call to pt to discuss d/c plan. Pt states she is waiting for a return call from pt nurse and needs more medical information before she can make a decision on d/c plan. Pt to be in later toady and will notify SW after she has made a decision. Phone call placed to pt Passport KYA Thornton and left message notifying her of pt hospitailzation. SW will continue to follow for d/c planning. EDD Cobian
[2017-12-02 12:40] LABS: Bedside Glucose 220 mg/dL (70-110)
--- NOTE | 2017-12-02 13:20 | PCM.PN.NEU ---
Patient Problems: Active and Suspected Problems Right leg DVT (Acute) Subjective: No issues overnight. at bedside. Per he is better than when he was admitted but she feels he might not be at baseline yet. He was doing physical therapy on Friday morning (11/29/17), then suddenly was shaking, found to have SBP >200s at home, then went to sleep, slept the whole day, the next day when he woke up was confused, had vomiting later on and he was admitted to [facility] for further evaluation. Per he has osteogenesis imperfecta and has recurrent fractures, had left leg fracture in June 2017 for which he has been on [place] and Flexeril. His Flexeril was stopped on Friday and he was started on Baclofen 20 mg TID. Patient's denies any new onset dementia, urinary incontinence and per he has been bed bound or using wheel chair since last summer, denies any frequent falls, may fall once in 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 MRI brain done on admission reported to show possible mild NPH but changes appears to be comparable to the previous CT head and it also show moderated cerebral atrophy. - Physical Exam General: Alert HEENT: Normocephalic Neck: Supple Lungs: Clear to auscultation Cardiovascular: Regular rate Abdomen: Bowel Sounds Present Extremities: No clubbing Skin: No rashes Musculoskeletal: No Tenderness to Palpation of Joints or Extremities Neurological: - - awake, alert, AoAx2, CN 2-12 grossly intact, moves all 4 extremities, denies any sensory loss, no cerebellar signs, very hard of hearing, limited neurology examination, Reflexes + B/L B/S/T/K/A, gait deferred Psych/Mental Status: Normal Affect Vital Signs Temp Pulse Resp BP Pulse Ox 99.3 F H 83 18 133/67 H 96 12/02/17 09:31 12/02/17 12:57 12/02/17 09:31 12/02/17 09:31 12/02/17 09:31 Oxygen Delivery Method Room Air Weight: 102.5 kg Body Mass Index (BMI) 26.8 Intake and Output for Last 24 Hours 11/30/17 12/01/17 12/02/17 23:59 23:59 23:59 Intake Total 410 / 410 820 / 820 Balance 410 / 410 820 / 820 POC Glucose 12/02/17 12/02/17 12/01/17 12:18 06:32 22:34 POC Glucose 220 H 175 H 142 H 12/01/17 17:59 POC Glucose 143 H Assessment/Plan Active and Suspected Problems Right leg DVT (Acute) The patient is a 62 year old CM with PMH HLD, DM, depression, H/O encephalopathy, H/O DVT per documentation admitted with AMS. at bedside. Per he is better than when he was admitted at present but she feels he might not be at baseline yet. He was doing physical therapy on Friday morning (11/29/17), then suddenly was shaking, found to have SBP >200s at home, then went to sleep, slept the whole day, the next day when he woke up was confused, had vomiting later on and he was admitted to [facility] for further evaluation. She denies any witnessed seizures. Per he has osteogenesis imperfecta and has recurrent fractures, had left leg fracture in June 2017 for which he has been on [place] and Flexeril. His Flexeril was stopped on Friday and he was started on Baclofen 20 mg TID. Patient's denies any new onset dementia, urinary incontinence and per he has been bed bound or using wheel chair since last summer, denies any frequent falls, may fall once in 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 MRI brain done on admission reported to show possible mild NPH but changes appears to be comparable to the previous CT head and it also show moderated cerebral atrophy. At present patient denies any PIERCE, is very hard of hearing, denies any new onset visual disturbances, speech disturbances, focal motor weakness, sensory loss, neck or back pain. Labs: WBC, Creatinine and UA normal on admission, UDS negative. Impression Likely Metabolic Encephalopathy Possibly Medication induced Plan -MRI brain w/o contrast reviewed- reported to show possible mild NPH -Recommend outpatient Neurosurgery evaluation for further management of possible NPH. -CT head reviewed-partial absence of the corpus callosum with colpocephaly, unchanged compared to the prior studies. -At present patient is alert and following commands, though a poor historian, there is no witnessed seizures, no history of seizures, will hold off on EEG -On Baclofen 20mg PO TID at home, avoid abrupt withdrawal, can decrease the dose, will defer to primary team -GI/DVT prophylaxis -PT/OT -Fall precautions -Please call with questions if any -Thank you for allowing us to participate in patient's care and management. I spent 30 minutes taking history, doing physical examination, reviewing medical records, coordinating care and counseling patient and his .
--- NOTE | 2017-12-02 13:30 | PN.NEURO_ITS ---
Patient Problems: Active and Suspected Problems Right leg DVT (Acute) Subjective: No issues overnight. at bedside. Per he is better than when he was admitted but she feels he might not be at baseline yet. He was doing physical therapy on Friday morning (11/29/17), then suddenly was shaking, found to have SBP >200s at home, then went to sleep, slept the whole day, the next day when he woke up was confused, had vomiting later on and he was admitted to [facility] for further evaluation. Per he has osteogenesis imperfecta and has recurrent fractures, had left leg fracture in June 2017 for which he has been on [place] and Flexeril. His Flexeril was stopped on Friday and he was started on Baclofen 20 mg TID. Patient's denies any new onset dementia, urinary incontinence and per he has been bed bound or using wheel chair since last summer, denies any frequent falls, may fall once in 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 MRI brain done on admission reported to show possible mild NPH but changes appears to be comparable to the previous CT head and it also show moderated cerebral atrophy. - Physical Exam General: Alert HEENT: Normocephalic Neck: Supple Lungs: Clear to auscultation Cardiovascular: Regular rate Abdomen: Bowel Sounds Present Extremities: No clubbing Skin: No rashes Musculoskeletal: No Tenderness to Palpation of Joints or Extremities Neurological: - - awake, alert, AoAx2, CN 2-12 grossly intact, moves all 4 extremities, denies any sensory loss, no cerebellar signs, very hard of hearing , limited neurology examination, Reflexes + B/L B/S/T/K/A, gait deferred Psych/Mental Status: Normal Affect Vital Signs Temp Pulse Resp BP Pulse Ox 99.3 F H 83 18 133/67 H 96 12/02/17 09:31 12/02/17 12:57 12/02/17 09:31 12/02/17 09:31 12/02/17 09:31 Oxygen Delivery Method Room Air Weight: 102.5 kg Body Mass Index (BMI) 26.8 Intake and Output for Last 24 Hours 11/30/17 12/01/17 12/02/17 23:59 23:59 23:59 Intake Total 410 / 410 820 / 820 Balance 410 / 410 820 / 820 POC Glucose 12/02/17 12/02/17 12/01/17 12:18 06:32 22:34 POC Glucose 220 H 175 H 142 H 12/01/17 17:59 POC Glucose 143 H Assessment/Plan Active and Suspected Problems Right leg DVT (Acute) The patient is a 62 year old CM with PMH HLD, DM, depression, H/O encephalopathy , H/O DVT per documentation admitted with AMS. at bedside. Per he is better than when he was admitted at present but she feels he might not be at baseline yet. He was doing physical therapy on Friday morning (11/29/17), then suddenly was shaking, found to have SBP >200s at home, then went to sleep, slept the whole day, the next day when he woke up was confused, had vomiting later on and he was admitted to [facility] for further evaluation. She denies any witnessed seizures. Per he has osteogenesis imperfecta and has recurrent fractures, had left leg fracture in June 2017 for which he has been on [place] and Flexeril. His Flexeril was stopped on Friday and he was started on Baclofen 20 mg TID. Patient's denies any new onset dementia, urinary incontinence and per he has been bed bound or using wheel chair since last summer, denies any frequent falls, may fall once in 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 MRI brain done on admission reported to show possible mild NPH but changes appears to be comparable to the previous CT head and it also show moderated cerebral atrophy. At present patient denies any PIERCE, is very hard of hearing, denies any new onset visual disturbances, speech disturbances, focal motor weakness, sensory loss, neck or back pain. Labs: WBC, Creatinine and UA normal on admission, UDS negative. Impression Likely Metabolic Encephalopathy Possibly Medication induced Plan -MRI brain w/o contrast reviewed- reported to show possible mild NPH -Recommend outpatient Neurosurgery evaluation for further management of possible NPH. -CT head reviewed-partial absence of the corpus callosum with colpocephaly, unchanged compared to the prior studies. -At present patient is alert and following commands, though a poor historian, there is no witnessed seizures, no history of seizures, will hold off on EEG -On Baclofen 20mg PO TID at home, avoid abrupt withdrawal, can decrease the dose , will defer to primary team -GI/DVT prophylaxis -PT/OT -Fall precautions -Please call with questions if any -Thank you for allowing us to participate in patient's care and management. I spent 30 minutes taking history, doing physical examination, reviewing medical records, coordinating care and counseling patient and his .
--- NOTE | 2017-12-02 13:49 | PCM.DC ---
- Discharge Diagnoses Current Active Problems: Current Active and Chronic Problems Right leg DVT (Acute) You will use the following diet at home:: Calorie/Carbohydrate Controlled (specify 1200, 1400, etc) - 1800 ADA diet Your food should be the consistency of: Regular Discharge Activity: May Not Drive Additional Instructions: Refer to [facility] weeks Allergies/Adverse Reactions: Allergies fentanyl Adverse Reaction (Verified 12/01/17 02:15) lethargic, unresponsive, hallucinations morphine Adverse Reaction (Verified 12/01/17 02:15) lethargic, unresponsive, hallucinations IVP DYE Allergy (Uncoded 12/01/17 02:15) Anaphylaxis Medications to take at Discharge Ascorbic Acid [Vitamin C] 1,000 mg PO BIDCM 06/17/15 Liraglutide [Victoza 3-Amrik] 1.2 mg SQ DAILY 06/17/15 Metformin HCl 1,000 mg PO BID 06/17/15 Vitamin E 400 unit PO DAILY 06/17/15 Calcium Carbonate [Calcium] 600 mg PO BID #0 08/29/15 Insulin Lispro [Humalog] See Protocol SQ 4X/DAY 08/29/15 Cholecalciferol (Vitamin D3) [Vitamin D3] 1 capsule PO DAILY 05/28/16 Cyanocobalamin (Vitamin B-12) [Vitamin B-12] 2,500 mcg PO DAILY 12/01/17 Docusate Sodium [Colace] 100 mg PO BID 12/01/17 Folic Acid 0.8 mg PO DAILY@0800 12/01/17 Hydrocodone Bitart/Apap 5-325 [[place] 5/325] 1 - 2 tablet PO Q6H PRN PRN 12/01/17 [place]-3 Fatty Acids/Fish Oil [Fish Oil 1,000 mg Capsule] 1,000 mg PO DAILY 12/01/17 Omeprazole [Prilosec] 20 mg PO DAILY 12/01/17 Senna/Docusate Sodium [Senokot-S] 2 tablet PO MOWEFR 12/01/17 Sertraline HCl [Zoloft] 50 mg PO QHS 12/01/17 Tadalafil [Cialis] 5 mg PO PRN PRN 12/01/17 Cyclobenzaprine [Flexeril] 5 mg PO TID PRN PRN #20 tab 12/02/17 Fenofibrate [Tricor] 145 mg PO DAILY #30 tab 12/02/17 Furosemide [Lasix] 10 mg PO DAILY PRN PRN tablet 12/02/17 GlipiZIDE [Glucotrol] 10 mg PO BID #0 12/02/17 The following prescriptions were given: Cyclobenzaprine [Flexeril] 5 mg PO TID PRN PRN #20 tab PRN Reason: leg muscle spasm Fenofibrate [Tricor] 145 mg PO DAILY #30 tab Primary Care Physician: [facility] Doctor,Out of [NON-STAFF] - Please follow up with your Primary Care Physician in: in 2 weeks
--- NOTE | 2017-12-02 13:53 | DCINST_ITS ---
- Discharge Diagnoses Current Active Problems: Current Active and Chronic Problems Right leg DVT (Acute) You will use the following diet at home:: Calorie/Carbohydrate Controlled ( specify 1200, 1400, etc) - 1800 ADA diet Your food should be the consistency of: Regular Discharge Activity: May Not Drive Additional Instructions: Refer to Neurosurgeon, [facility] weeks Allergies/Adverse Reactions: Allergies fentanyl Adverse Reaction (Verified 12/01/17 02:15) lethargic, unresponsive, hallucinations morphine Adverse Reaction (Verified 12/01/17 02:15) lethargic, unresponsive, hallucinations IVP DYE Allergy (Uncoded 12/01/17 02:15) Anaphylaxis Medications to take at Discharge Ascorbic Acid [Vitamin C] 1,000 mg PO BIDCM 06/17/15 Liraglutide [Victoza 3-Amrik] 1.2 mg SQ DAILY 06/17/15 Metformin HCl 1,000 mg PO BID 06/17/15 Vitamin E 400 unit PO DAILY 06/17/15 Calcium Carbonate [Calcium] 600 mg PO BID #0 08/29/15 Insulin Lispro [Humalog] See Protocol SQ 4X/DAY 08/29/15 Cholecalciferol (Vitamin D3) [Vitamin D3] 1 capsule PO DAILY 05/28/16 Cyanocobalamin (Vitamin B-12) [Vitamin B-12] 2,500 mcg PO DAILY 12/01/17 Docusate Sodium [Colace] 100 mg PO BID 12/01/17 Folic Acid 0.8 mg PO DAILY@0800 12/01/17 Hydrocodone Bitart/Apap 5-325 [[place] 5/325] 1 - 2 tablet PO Q6H PRN PRN [place]-3 Fatty Acids/Fish Oil [Fish Oil 1,000 mg Capsule] 1,000 mg PO DAILY 12/01 Omeprazole [Prilosec] 20 mg PO DAILY 12/01/17 Senna/Docusate Sodium [Senokot-S] 2 tablet PO MOWEFR 12/01/17 Sertraline HCl [Zoloft] 50 mg PO QHS 12/01/17 Tadalafil [Cialis] 5 mg PO PRN PRN 12/01/17 Cyclobenzaprine [Flexeril] 5 mg PO TID PRN PRN #20 tab 12/02/17 Fenofibrate [Tricor] 145 mg PO DAILY #30 tab 12/02/17 Furosemide [Lasix] 10 mg PO DAILY PRN PRN tablet 12/02/17 GlipiZIDE [Glucotrol] 10 mg PO BID #0 12/02/17 The following prescriptions were given: Cyclobenzaprine [Flexeril] 5 mg PO TID PRN PRN #20 tab PRN Reason: leg muscle spasm Fenofibrate [Tricor] 145 mg PO DAILY #30 tab Primary Care Physician: [facility] Doctor,Out of [NON-STAFF] - Please follow up with your Primary Care Physician in: in 2 weeks
--- NOTE | 2017-12-02 13:53 | PCM.DC.SUM ---
Discharge Date and Diagnosis - Problem List Patient Problems: Active and Suspected Problems Right leg DVT (Acute) Date of Admission: 12/01/17 Date of Discharge: 12/02/17 - Primary Discharge Diagnosis Active and Suspected Problems Acute encephalopathy most probably metabolic encephalopathy complicated with polypharmacy of high dose of muscle relaxant and high-dose narcotics - Secondary Discharge Diagnosis Chronic Problems Low back pain (Chronic) Type II diabetes mellitus (Chronic) Chronic back pain (Chronic) Osteogenesis imperfecta (Chronic) Hospital Course and Treatment Operations: - - Right hip arthroplasty Summary of Care Provided: 62 year old male w/ h/o encephalopathy, right leg DVT, and HTN admitted for encephalopathy. 1) Acute encephalopathy most probably metabolic encephalopathy complicated with polypharmacy of high dose of muscle relaxant and high-dose narcotics. Patient mental alertness improved. He was on norco, percocet and flexeril. The patient was seen by neurologist. B12 is more than 2000, folate level high. Ammonia normal. 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 Discussed with the neurologist. Dose of baclofen decreased. MRI brain was done which reported as findings consistent with mild involving NPH. No significant periventricular white matter ischemic changes or evidence for acute infarct. Patient didn't had prior MRI. Patient has cognitive deficit and does not remember recent events but oriented to time, place and person. Patient denies history of seizure. Patient is hard of hearing and beers hearing aids. Infectious process ruled out. Blood culture negative for more than 36 hours. Urine culture negative. 2) Right leg DVT: Years ago. Per pt was on xarelto but not on meds list. Probably won't need further anticoagulation given one time incident and no e/o PE. No trigger noted. 3) Chronic pain: hold sedative meds. try to avoid NSAID as well given possible JULITO with NSAID. OTC acetaminophen if needed. 4) DMII: Resume home meds. Monitor. Discharge plan: Baclofen was stopped. muscle relaxant changed to Flexeril 10 mg 3 times daily as needed. There is no witnessed seizure or history of seizures. Patient has [facility] service for 8 hours of home health care besides his is main caregiver. Fall precaution. Patient was recommended neurosurgery follow-up to further evaluate for possible NPH. Patient has history of recurrent fall in the past but denies urine incontinence or gait ataxia/muscle incoordination. Referral was made to [facility], [facility] [place] in 2 weeks. Discharge plan discussed with the patient and his . Discharge medication reconciliation done. Discharge follow-up instructions completed. Discharge Activity: May Not Drive Home Medications: Medications to take at Discharge Ascorbic Acid [Vitamin C] 1,000 mg PO BIDCM 06/17/15 Liraglutide [Victoza 3-Amrik] 1.2 mg SQ DAILY 06/17/15 Metformin HCl 1,000 mg PO BID 06/17/15 Vitamin E 400 unit PO DAILY 06/17/15 Calcium Carbonate [Calcium] 600 mg PO BID #0 08/29/15 Insulin Lispro [Humalog] See Protocol SQ 4X/DAY 08/29/15 Cholecalciferol (Vitamin D3) [Vitamin D3] 1 capsule PO DAILY 05/28/16 Cyanocobalamin (Vitamin B-12) [Vitamin B-12] 2,500 mcg PO DAILY 12/01/17 Docusate Sodium [Colace] 100 mg PO BID 12/01/17 Folic Acid 0.8 mg PO DAILY@0800 12/01/17 Hydrocodone Bitart/Apap 5-325 [[place] 5/325] 1 - 2 tablet PO Q6H PRN PRN 12/01/17 [place]-3 Fatty Acids/Fish Oil [Fish Oil 1,000 mg Capsule] 1,000 mg PO DAILY 12/01/17 Omeprazole [Prilosec] 20 mg PO DAILY 12/01/17 Senna/Docusate Sodium [Senokot-S] 2 tablet PO MOWEFR 12/01/17 Sertraline HCl [Zoloft] 50 mg PO QHS 12/01/17 Tadalafil [Cialis] 5 mg PO PRN PRN 12/01/17 Cyclobenzaprine [Flexeril] 5 mg PO TID PRN PRN #20 tab 12/02/17 Fenofibrate [Tricor] 145 mg PO DAILY #30 tab 12/02/17 Furosemide [Lasix] 10 mg PO DAILY PRN PRN tablet 12/02/17 GlipiZIDE [Glucotrol] 10 mg PO BID #0 12/02/17 Following Prescrptions Were Given to Patient: Cyclobenzaprine [Flexeril] 5 mg PO TID PRN PRN #20 tab PRN Reason: leg muscle spasm Fenofibrate [Tricor] 145 mg PO DAILY #30 tab Primary Care Physician: [facility] Doctor,Out of [NON-STAFF] - Please follow up with your Primary Care Physician in: in 2 weeks Meaningful Use Info Meaningful Use Diagnoses (Choose all that apply): None applicable Code Visit OBSV E&M: 15116 Observation care discharge
--- NOTE | 2017-12-02 15:32 | CASEMGMT ---
Social Work Met with pt and in room to discuss d/c plan. Pt has had the opportunity to speak with the physicians and she is choosing to take pt home. Pt ready for d/c today. Pt currently has home health PT through [facility] and home health RN is recommended. Pt is agreeable. Referral made to [facility] and orders faxed. Pt states she has needed DME in the home. Phone call placed to [facility] and informed that pt will be returning home and aid services need restarted. Pt inquiring about HCPOA for pt. SW provided copy of you have a right information booklet as well as HCPOA and living will paperwork. SW explained both documents in detail and how they can be completed. Forms not completed at this time due to pt current cognitive impairment. Pt does not feel he is at baseline and is understanding that pt can complete paperwork when he is A&O. Pt will need transportation home and states she has used [facility] in the past. Arrangements made for 5 pm tack picker with [facility]. Pt and nurse notified. No further d/c needs. EDD [place]
[2017-12-05 02:58] LABS: Rapid Plasmin Reagin (RPR) NONREACTIVE (NONREACTIVE)
== END 2017-12-02 16:58 | disposition home health service (06) ==
LOC: ED 12-01 00:29 → MS3 12-01 02:16
PROVIDERS: Admitting Provider Internal Medicine; Emergency Provider Emergency Medicine; Visit Provider Internal Medicine
DX: G93.40 Encephalopathy, unspecified (principal); E11.9 Type 2 diabetes mellitus without complications; Q78.0 Osteogenesis imperfecta; Z23 Encounter for immunization; F32.9 Major depressive disorder, single episode, unspecified; H91.90 Unspecified hearing loss, unspecified ear; R29.810 Facial weakness; G93.0 Cerebral cysts; G89.29 Other chronic pain; M54.5 Low back pain; I10 Essential (primary) hypertension; Z79.899 Other long term (current) drug therapy; Z79.4 Long term (current) use of insulin; Z86.718 Personal history of other venous thrombosis and embolism; Z79.01 Long term (current) use of anticoagulants; Z87.891 Personal history of nicotine dependence
CPT/HCPCS: 36415; 70450; 70551; 80048; 80076; 80307; 81001; 82140; 82607; 82746; 82962; 84484; 85025; 86592; 87040; 87086; 96372; 97162; 97166; 97530; 97802; 99218; 99285; P9612; 90686; A4216; G0378

== ENCOUNTER 2017-12-05 18:18 | Inpatient (IN) | payer MEDICARE, MEDICAID, SELFPAY ==
[2017-12-05] VITALS (10 sets, daily range): BP systolic 114–153; BP diastolic 63–86; PULSE 82–113; RESP 16–24; TEMP 37.7–39.6; O2SAT 83–100; BMI 29.5; BMI 29.1; BMI 29.2
[2017-12-05] MEDS: 0.9% Normal Saline 1,000 ML 999 ML IV (18:50)
--- NOTE | 2017-12-05 18:52 | EKG12_ITS ---
Test Reason : ALT. MENTAL STAT Blood Pressure : / mmHG Vent. Rate : 106 BPM Atrial Rate : 106 BPM P-R Int : 160 ms QRS Dur : 088 ms QT Int : 306 ms P-R-T Axes : -11 -39 103 degrees QTc Int : 406 ms Sinus tachycardia with Premature atrial complexes Left axis deviation Left ventricular hypertrophy with repolarization abnormality Abnormal ECG Confirmed by DEEPAK WATTS ([id number]), movie editor ALTAGRACIA DE LA CRUZ ([id number]) on 12/08/2017 1:30:34 PM Referred By: CHRISTELLE Confirmed By:DEEPAK WATTS
--- NOTE | 2017-12-05 18:55 | ED.VISSUMM ---
- ER Visit Summary Date of Service: 12/05/17 Chief Complaint: Fever and mental status change History of Present Illness: The patient is a 62 M history of insulin pen diabetes, encephalopathy and hydrocephalus. Recent admission and discharge from the hospital for mental status change. He was doing better yesterday and then today was lethargic at home and much worse. He states that he did have by vertebroplasty done years ago and really does not walk much anymore basically gets around by wheelchair. She denies any cough. No falls or trauma. He is currently on no blood thinners. He did have an extensive workup within the last week including CAT scan and MRI of his brain. He also was evaluated by neurology. Physical Examination: Older male vital signs are stable he does have a fever of 1032. Pulse ox 96% on room air no signs of hypoxia. HEENT exam his eyes are open. His pupils are equal reactive light. No facial droop. His dry mucous membranes. Neck nontender. No meningismus. Lungs clear to auscultation bilaterally. Heart tachycardic no murmur. Abdomen is soft and nontender. Normal bowel sounds nondistended. Extremities have no deformities. He does squeeze my hands to commands. Neurologically his eyes are open he is awake. Currently is not talking. And he only follows very limited commands. Overall his mental status is decreased. Skin there is no rashes but he is warm to touch. Test Results: Chest x-ray portable one view appears to be a left lower lobe infiltrate consistent with a left lower lobe hospital-acquired pneumonia with his recent admission. This is read by the radiologist reviewed by me. EKG is a sinus tachycardia rate of 106 with PACs. White count 12.9 with an H&H of 13 and 42. BMP unremarkable. Normal creatinine and gap. Liver enzymes normal. PT/INR normal. UA is pending. Troponins normal. Lactic acid 1.6. Emergency Department Course and Treatment: Patient will be treated with IV fluids, p.o. Tylenol and worked up for fever. Treatment Plan: Repeat exam the patient is doing much better at 2034. Is much more awake alert and talkative. He will be admitted for a healthcare acquired pneumonia. Started on parenteral antibiotics. I will speak to the hospitalist about admission. Disposition: [] Impression: Acute fever Acute left lower lobe pneumonia (healthcare acquired pneumonia) Mental status change History of hydrocephalus History of insulin-dependent diabetes This note was generated with [employer] dictation software. It may contain incorrect words, spelling, and punctuation that were not noted in review of the chart prior to signing ED Disposition - Plan for ED Patient: Chief Complaint: Mental Status Change
[2017-12-05 19:10] LABS: Absolute Lymphocyte Count 1.98 X10^3/ul (0.83-4.51); Absolute Neutrophil Count 9.7 X10^3/uL (2.0-7.7); Basophil# 0.02 X10^3/uL; Basophil% 0.2 % (0-1); Eosinophil# 0.03 X10^3/uL; Eosinophils% 0.2 % (0-5); Hemoglobin 13.5 g/dl (13.0-16.5); Lymphocyte # 1.98 X10^3/ul (4.0); Lymphocyte % 15.4 % (19-41); Mean Corp Hgb Conc 32.1 g/gl (32-36); Mean Corpuscular Hgb 29.3 pg (27.0-32.0); Mean Corpuscular Volume 91.1 fL (80-94); Mean Platelet Vol. 10.7 fl (6.2-12.0); Monocyte# 1.08 X10^3/uL; Monocyte% 8.4 % (0-10); Neutrophil # 9.71 X10^3/uL (2.7-7.7); Neutrophil % 75.6 % (47-70); Platelet Count 273 K/mm3 (150-450); RBC Distribution Width CV 15.6 % (11.6-14.6); RBC Distribution Width SD 52.1 fl (35.1-43.9); Red Blood Count 4.61 M/mm3 (4.6-6.2); White Blood Count 12.9 K/mm3 (4.4-11.0)
[2017-12-05 19:11] LABS: POSITIVE COUNT NO; POSITIVE DIFFERENTIAL NO; POSITIVE MORPHOLOGY NO
[2017-12-05 19:13] LABS: International Normalized Ratio 1.1; Prothrombin Time (Protime)PT. 13.8 SECONDS (11.7-14.9)
[2017-12-05 19:14] LABS: Partial Thromboplast Time 34.2 Seconds (24.1-36.2)
--- NOTE | 2017-12-05 19:14 | RAD_ITS ---
STUDY: X-RAY CHEST REASON FOR EXAM: Male, 62 years old. MENTAL STATUS CHANGE TECHNIQUE: Single frontal view of the chest. COMPARISON: 9.7.16 FINDINGS: Chronic appearing increased interstitial lung markings. There is an elevated right hemidiaphragm. There is no demonstrated pleural abnormality. Left lower lobe infiltrate suggesting an early pneumonia. Enlarged heart size. Normal mediastinum and deana. Normal visualized pulmonary arteries. There is atherosclerotic calcification of the aortic arch with tortuosity. There are diffuse degenerative changes of the visualized thoracic spine. There is degenerative osteoarthritis of the bilateral shoulders. There is no demonstrated abnormality of the visualized soft tissue structures of the upper abdomen. RAD/Chest 1 View (Portable) IMPRESSION: Left lower lobe infiltrate suggesting an early pneumonia. Electronically Signed: Frandy Young MD at 19:38 EDT , Service support ,
[2017-12-05 19:22] LABS: ALB/GLOB Ratio 0.8 RATIO (0.9-2.4); AST(SGOT) 11 U/L (15-37); Alanine Aminotransfer ALT/SGPT 18 U/L (16-61); Albumin, Serum 3.6 g/dL (3.2-5.0); Alkaline Phosphatase 59 U/L (45-117); Anion Gap 10 (5-15); BUN 14 mg/dL (7-18); BUN/Creat Ratio 16.2 RATIO (10-20); Calcium,Total 9.5 mg/dL (8.5-10.1); Chloride 104 mmol/L (98-107); Creatinine, Serum 0.87 mg/dL (0.70-1.30); EST Glomerular Filtration Rate 95 mL/min (>60); Est Glom Filt Rate - Afr Amer 115 mL/min (>60); Estimated Creatinine Clearance 102.36 ml/min; Globulin 4.3 g/dL (2.2-4.2); Glucose 158 mg/dL (74-106); Potassium 3.9 mmol/L (3.5-5.1); Protein, Total 7.9 g/dL (6.4-8.2); Sodium Level 139 mmol/L (136-145)
[2017-12-05 19:23] LABS: Lactic Acid 1.6 mmol/L (0.4-2.0)
[2017-12-05] MEDS: Acetaminophen 500 MG Tablet 1000 MG PO (19:23)
[2017-12-05 19:35] LABS: Mucous, Urine 0 SEEN /hpf (<or=2+)
[2017-12-05 20:03] LABS: Color, Urine Yellow (Yellow); Glucose, Dipstick 100 mg/dl (Normal); Ketone-Dipstick 15 mg/dl (Negative); Leukocyte Esterase-Dipstick 500 /ul (Negative); Nitrite-Dipstick Negative (Negative); Occult Blood-Urine 250 /ul (Negative); Protein-Dipstick 100 mg/dl (Negative); Specific Gravity, Urine 1.025 (1.002-1.030); Urine Bilirubin Dipstick Negative (Negative); Urine Clarity Sl. Cloudy (Clear); Urine Urobilinogen Normal (Normal)
--- NOTE | 2017-12-05 20:44 | PCM.HP.STD ---
Problem List (1) Anxiety and depression Status: Chronic (2) HTN (hypertension) Status: Chronic Qualifiers: Hypertension type: essential hypertension Qualified Code(s): I10 - Essential (primary) hypertension (3) GERD (gastroesophageal reflux disease) Status: Chronic Qualifiers: Esophagitis presence: esophagitis presence not specified Qualified Code(s): K21.9 - Gastro-esophageal reflux disease without esophagitis (4) Pneumonia Status: Acute Qualifiers: Pneumonia type: due to unspecified organism Laterality: left Lung location: lower lobe of lung Qualified Code(s): J18.1 - Lobar pneumonia, unspecified organism (5) Right leg DVT Status: Acute (6) Encephalopathy Status: Acute (7) Type II diabetes mellitus Status: Chronic Qualifiers: Diabetes mellitus jail insulin use: with intermediate frame tender use Diabetes mellitus complication status: with unspecified complications Qualified Code(s): E11.8 - Type 2 diabetes mellitus with unspecified complications; Z79.4 - adjunct faculty for medical terminology (current) use of insulin (8) Chronic back pain Status: Chronic Qualifiers: Back pain location: back pain in unspecified location Back pain laterality: unspecified Qualified Code(s): M54.9 - Dorsalgia, unspecified; G89.29 - Other chronic pain (9) Osteogenesis imperfecta Status: Chronic History of Present Illness Date of Admission: 12/05/17 Chief Complaint: Mental status change, fever, hypoxic The patient is a 62 y/o M w/ PMHx: Anxiety and Depression, HTN, GERD, Low Back Pain s/p kyphoplasty wheelchair bound, Diabetes mellitus type II, Chronic Back Pain, Osteogenesis imperfecta, recent evaluation 12/01/17-12/02/17 with acute encephalopathy felt likely metabolic complicated by polypharmacy with overdose of muscle relaxants and high dose narcotics, evaluated also per Neurology at that time who now re-presents to the [facility] ED on 12/05/17 with again metal status change, lethargic, febrile starting today, noted per family to be improved, noted initially 80% on RA for EMS upon transport. Family notes that he had low grade temperatures over the last 1-2 days also and has been very weak. He has had mild cough but no marked sputum production. In the ED work-up included T 102.7, HR 106-->96, BP 147/76-->114/86, RR 20, 97% on 2L NC, CBC w/ WBC 12.9, Hgb 13.5, Plts 273 with L shift, unremarkable coags, CMP w/ glucose 158, trop < 0.02, UA w/ evidence dehydration, pending complete UA, UCx and Bld Cx x 2 per ED pending. In the ED patient administered tylenol, NS, rocephin, azithromycin. Past Medical History Past Medical History (Chronic Problems): Chronic Problems Anxiety and depression (Chronic) HTN (hypertension) (Chronic) GERD (gastroesophageal reflux disease) (Chronic) Low back pain (Chronic) Type II diabetes mellitus (Chronic) Chronic back pain (Chronic) Osteogenesis imperfecta (Chronic) Allergies fentanyl Adverse Reaction (Verified 12/05/17 18:26) lethargic, unresponsive, hallucinations morphine Adverse Reaction (Verified 12/05/17 18:26) lethargic, unresponsive, hallucinations IVP DYE Allergy (Uncoded 12/05/17 18:26) Anaphylaxis Home Medications: Ambulatory Orders Medication Instructions Recorded Ascorbic Acid [Vitamin C] 1,000 mg PO BIDCM 06/17/15 Liraglutide [Victoza 3-Amrik] 1.2 mg SQ DAILY 06/17/15 Metformin HCl 1,000 mg PO BID 06/17/15 Vitamin E 400 unit PO DAILY 06/17/15 Calcium Carbonate [Calcium] 600 mg PO BID #0 08/29/15 Insulin Lispro [Humalog] See Protocol SQ 4X/DAY 08/29/15 Cholecalciferol (Vitamin D3) 1 capsule PO DAILY 05/28/16 [Vitamin D3] Cyanocobalamin (Vitamin B-12) 2,500 mcg PO DAILY 12/01/17 [Vitamin B-12] Docusate Sodium [Colace] 100 mg PO BID 12/01/17 Folic Acid 0.8 mg PO DAILY@0800 12/01/17 Hydrocodone Bitart/Apap 5-325 1 - 2 tablet PO Q6H PRN PRN 12/01/17 [[place] 5/325] [place]-3 Fatty Acids/Fish Oil [Fish 1,000 mg PO DAILY 12/01/17 Oil 1,000 mg Capsule] Omeprazole [Prilosec] 20 mg PO DAILY 12/01/17 Senna/Docusate Sodium [Senokot-S] 2 tablet PO MOWEFR 12/01/17 Sertraline HCl [Zoloft] 50 mg PO QHS 12/01/17 Tadalafil [Cialis] 5 mg PO PRN PRN 12/01/17 Cyclobenzaprine [Flexeril] 5 mg PO TID PRN PRN #20 tab 12/02/17 Fenofibrate [Tricor] 145 mg PO DAILY #30 tab 12/02/17 Furosemide [Lasix] 10 mg PO DAILY PRN PRN tablet 12/02/17 glipiZIDE [Glucotrol] 10 mg PO BID #0 12/02/17 Surgical History: appendectomy, total knee arthroplasty, - - Hiatal hernia surgery. Psychiatric History: Anxiety, Depression Lives: Spouse/ Significant Other Smoking Status: Former smoker Tobacco Use: Non-smoker Alcohol: None Drugs: None - *Family History Maternal History Items: - - No coronary artery disease. Alcohol abuse. Paternal History Items: Stroke Review of Systems Constitutional: Reports: Anorexia, Chills, Fever, Malaise, Weakness, Fatigue. Denies: Weight Change HEENT: Denies: Head Aches, Sinus Congestion, Sinus Drainage Cardiovascular: Denies: Chest Pain, Palpitations Respiratory: Reports: Cough, Shortness of Breath, Shortness of breath at rest, Shortness of breath upon exertion. Denies: Sputum production, Wheezing Gastrointestinal: Reports: Nausea. Denies: Abdominal Pain, Vomiting Genitourinary: Denies: Dysuria Musculoskeletal: Reports: Back Pain. Denies: Joint Pain, Joint Tenderness Skin: Denies: Rash, Wounds Neurological: Reports: Confusion. Denies: Focal weakness, Numbness, Tingling Psychiatric: Reports: Anxiety, Depression. Denies: Homicidal Ideations, Suicidal Ideations Hematologic/ Lymphatic: Denies: Easy Bruising, Easy Bleeding VTE Information - Inpt Only VTE Present on Admission: No VTE Mechan Device Prophylaxis: SCD's VTE Pharm Prophylaxis ordered?: Yes Patient Problems: Active and Suspected Problems Pneumonia (Acute) Subjective: Seated upright in the ED bed, fatigued, hard of hearing, improved from initial presentation. Objective: Physical Examination: General: awake now, more alert than initial presentation, now oriented x 3 and cooperative, seated upright in the ED bed in no apparent distress, fatigued appearing. Skin: normal color, turgor, no icterus, cyanosis. HEENT: AT/NC, EOMI, PERRLA, severely dry MM, no carotid bruits or JVD noted. Lungs: Diminished BS BL, > L mildly coarse L mid-base, mild effort, no wheezing. Heart: Tachycardic with regular rhythm; no gallop, rub audible. Abdomen: soft, overweight, NTTP, ND, normal BS, no HSM. Extremities: no cyanosis, clubbing, or edema. Neurological: patient awake, alert, oriented x 3; cognitive function improved, nearly baseline intact but decreased from baseline; pupils equally reactive to light and accomodation; cranial nerves II-XII grossly normal, moving all 4 extremities, no focal deficits, strength severely globally decreased secondary to acute presentation. Psychiatric: affect appears flat, fatigued, no acute evidence of depressive or anxiety feelings. - Physical Exam Vital Signs Temp Pulse Resp BP Pulse Ox 102.7 F H 103 H 24 H 153/81 H 99 12/05/17 19:24 12/05/17 19:24 12/05/17 19:24 12/05/17 19:24 12/05/17 19:24 Oxygen Flow Rate (L/min) 2 Oxygen Delivery Method Nasal Cannula Weight: 229 lb 8.019 oz Body Mass Index (BMI) 29.5 Finger Stick Blood Glucose 164 Laboratory Tests Past 24 Hrs 12/05/17 12/05/17 12/05/17 18:30 18:30 18:30 WBC 12.9 H RBC 4.61 Hgb 13.5 Hct 42.0 MCV 91.1 MCH 29.3 MCHC 32.1 RDW 15.6 H RDW Differential 52.1 H Plt Count 273 MPV 10.7 Immature Gran % (Auto) 0.200 Neut % (Auto) 75.6 H Lymph % (Auto) 15.4 L [place] % (Auto) 8.4 Eos % (Auto) 0.2 Baso % (Auto) 0.2 Absolute Neuts (auto) 9.7 H Absolute Lymphs (auto) 1.98 Total Counted Not Reportable PT 13.8 INR 1.1 APTT 34.2 Sodium 139 Potassium 3.9 Chloride 104 Carbon Dioxide 25.0 Anion Gap 10 BUN 14 Creatinine 0.87 Estim Creat Clear Calc 102.36 Est GFR (MDRD) Af Amer 115 Est GFR (MDRD) Non-Af 95 BUN/Creatinine Ratio 16.2 Glucose 158 H Lactic Acid Calcium 9.5 Total Bilirubin 0.60 AST 11 L ALT 18 Alkaline Phosphatase 59 Troponin I < 0.02 Total Protein 7.9 Albumin 3.6 Globulin 4.3 H Albumin/Globulin Ratio 0.8 L Urine Color Urine Clarity Urine pH Ur Specific [place] Urine Protein Urine Glucose (UA) Urine Ketones Urine Occult Blood Urine Nitrite Urine Bilirubin Urine Urobilinogen Ur Leukocyte Esterase Urine RBC Urine WBC Ur Squamous Epith Cells Urine Bacteria Urine Mucus 12/05/17 12/05/17 18:30 19:24 WBC RBC Hgb Hct MCV MCH MCHC RDW RDW Differential Plt Count MPV Immature Gran % (Auto) Neut % (Auto) Lymph % (Auto) [place] % (Auto) Eos % (Auto) Baso % (Auto) Absolute Neuts (auto) Absolute Lymphs (auto) Total Counted PT INR APTT Sodium Potassium Chloride Carbon Dioxide Anion Gap BUN Creatinine Estim Creat Clear Calc Est GFR (MDRD) Af Amer Est GFR (MDRD) Non-Af BUN/Creatinine Ratio Glucose Lactic Acid 1.6 Calcium Total Bilirubin AST ALT Alkaline Phosphatase Troponin I Total Protein Albumin Globulin Albumin/Globulin Ratio Urine Color Pending Urine Clarity Pending Urine pH Pending Ur Specific [place] Pending Urine Protein Pending Urine Glucose (UA) Pending Urine Ketones Pending Urine Occult Blood Pending Urine Nitrite Pending Urine Bilirubin Pending Urine Urobilinogen Pending Ur Leukocyte Esterase Pending Urine RBC Pending Urine WBC Pending Ur Squamous Epith Cells Pending Urine Bacteria Pending Urine Mucus Pending Assessment/Plan Active and Suspected Problems Pneumonia (Acute) The patient is a 62 y/o M w/ PMHx: Anxiety and Depression, HTN, GERD, Low Back Pain s/p kyphoplasty wheelchair bound, Diabetes mellitus type II, Chronic Back Pain, Osteogenesis imperfecta, recent evaluation 12/01/17-12/02/17 with acute encephalopathy felt likely metabolic complicated by polypharmacy with overdose of muscle relaxants and high dose narcotics, evaluated also per Neurology at that time who now re-presents to the [facility] ED on 12/05/17 with again metal status change, lethargic, febrile starting today, noted per family to be improved, noted initially 80% on RA for EMS upon transport. (1) Acute Encephalopathy and Sepsis secondary to Acute Hypoxic Respiratory Failure (increased RR, O2 80%) secondary to HCAP Pneumonia: CXR in the ED w/ LLL infiltrate. Admission CBC w/ 12.9 with L shift. Will admit to MS, maintain on oxygen with wean as tolerated to room air, continue ATC duonebs, PRN albuterol, maintained on IV Rocephin and Azithromycin, HOB, IS parameters w/ pending sputum cultures and urine antigens. Bld cx x 2 obtained in the ED. Will obtain AM oxygenation trial for discharge planning daily. (2) Diabetes mellitus type II: Hold oral home regimen, continue home insulin regimen, ADA diet, accu checks w/ ISS. (3) Hypertension: Given elevated SG, likely dehydrated will hold lasix, PRN Hydralazine. (4) Hyperlipidemia: Continue home tricor regimen. (5) Anxiety and Depression: Maintain on home regimen sertraline. (6) GERD: Famotidine. (7) Chronic Back Pain: s/p kyphoplasty, uses wheelchair, fall precautions, PT and OT assessment, position changes, continue home regimen but monitor cautiously given prior lethargy. (8) Hx prior DVT: Maintain on prophylaxis as noted. (9) DVT Prophylaxis: SCDs, lovenox. Code Visit Inpatient E&M: 39659 Init Hosp L3
[2017-12-05 20:52] LABS: Red Blood Cells-Urine 50-100 SEEN /hpf (0-5); Squamous Epithelial Cells - UA 5-10 SEEN /hpf (0-5); White Blood Cells 10-25 SEEN /hpf (0-5)
[2017-12-05 20:53] LABS: Amorphous Sediment 2+; Bacteria 1+ /hpf (None Seen)
--- NOTE | 2017-12-05 20:58 | HP.PCM_ITS ---
Problem List (1) Anxiety and depression Status: Chronic (2) HTN (hypertension) Status: Chronic Qualifiers: Hypertension type: essential hypertension Qualified Code(s): I10 - Essential (primary) hypertension (3) GERD (gastroesophageal reflux disease) Status: Chronic Qualifiers: Esophagitis presence: esophagitis presence not specified Qualified Code(s) : K21.9 - Gastro-esophageal reflux disease without esophagitis (4) Pneumonia Status: Acute Qualifiers: Pneumonia type: due to unspecified organism Laterality: left Lung location: lower lobe of lung Qualified Code(s): J18.1 - Lobar pneumonia, unspecified organism (5) Right leg DVT Status: Acute (6) Encephalopathy Status: Acute (7) Type II diabetes mellitus Status: Chronic Qualifiers: Diabetes mellitus half-way insulin use: with half-way use Diabetes mellitus complication status: with unspecified complications Qualified Code(s) : E11.8 - Type 2 diabetes mellitus with unspecified complications; Z79.4 - senior living (current) use of insulin (8) Chronic back pain Status: Chronic Qualifiers: Back pain location: back pain in unspecified location Back pain laterality : unspecified Qualified Code(s): M54.9 - Dorsalgia, unspecified; G89.29 - Other chronic pain (9) Osteogenesis imperfecta Status: Chronic History of Present Illness Date of Admission: 12/05/17 Chief Complaint: Mental status change, fever, hypoxic The patient is a 62 y/o M w/ PMHx: Anxiety and Depression, HTN, GERD, Low Back Pain s/p kyphoplasty wheelchair bound, Diabetes mellitus type II, Chronic Back Pain, Osteogenesis imperfecta, recent evaluation 12/01/17-12/02/17 with acute encephalopathy felt likely metabolic complicated by polypharmacy with overdose of muscle relaxants and high dose narcotics, evaluated also per Neurology at that time who now re-presents to the [facility] ED on 12/05/17 with again metal status change, lethargic, febrile starting today, noted per family to be improved, noted initially 80% on RA for EMS upon transport. Family notes that he had low grade temperatures over the last 1-2 days also and has been very weak. He has had mild cough but no marked sputum production. In the ED work-up included T 102.7, HR 106-->96, BP 147/76-->114/86, RR 20, 97% on 2L NC, CBC w/ WBC 12.9, Hgb 13.5, Plts 273 with L shift, unremarkable coags, CMP w/ glucose 158, trop < 0.02, UA w/ evidence dehydration, pending complete UA, UCx and Bld Cx x 2 per ED pending. In the ED patient administered tylenol, NS, rocephin, azithromycin. Past Medical History Past Medical History (Chronic Problems): Chronic Problems Anxiety and depression (Chronic) HTN (hypertension) (Chronic) GERD (gastroesophageal reflux disease) (Chronic) Low back pain (Chronic) Type II diabetes mellitus (Chronic) Chronic back pain (Chronic) Osteogenesis imperfecta (Chronic) Allergies fentanyl Adverse Reaction (Verified 12/05/17 18:26) lethargic, unresponsive, hallucinations morphine Adverse Reaction (Verified 12/05/17 18:26) lethargic, unresponsive, hallucinations IVP DYE Allergy (Uncoded 12/05/17 18:26) Anaphylaxis Home Medications: Ambulatory Orders Medication Instructions Recorded Ascorbic Acid [Vitamin C] 1,000 mg PO BIDCM 06/17/15 Liraglutide [Victoza 3-Amrik] 1.2 mg SQ DAILY 06/17/15 Metformin HCl 1,000 mg PO BID 06/17/15 Vitamin E 400 unit PO DAILY 06/17/15 Calcium Carbonate [Calcium] 600 mg PO BID #0 08/29/15 Insulin Lispro [Humalog] See Protocol SQ 4X/DAY 08/29/15 Cholecalciferol (Vitamin D3) 1 capsule PO DAILY 05/28/16 [Vitamin D3] Cyanocobalamin (Vitamin B-12) 2,500 mcg PO DAILY 12/01/17 [Vitamin B-12] Docusate Sodium [Colace] 100 mg PO BID 12/01/17 Folic Acid 0.8 mg PO DAILY@0800 12/01/17 Hydrocodone Bitart/Apap 5-325 1 - 2 tablet PO Q6H PRN PRN 12/01/17 [[place] 5/325] [place]-3 Fatty Acids/Fish Oil [Fish 1,000 mg PO DAILY 12/01/17 Oil 1,000 mg Capsule] Omeprazole [Prilosec] 20 mg PO DAILY 12/01/17 Senna/Docusate Sodium [Senokot-S] 2 tablet PO MOWEFR 12/01/17 Sertraline HCl [Zoloft] 50 mg PO QHS 12/01/17 Tadalafil [Cialis] 5 mg PO PRN PRN 12/01/17 Cyclobenzaprine [Flexeril] 5 mg PO TID PRN PRN #20 tab 12/02/17 Fenofibrate [Tricor] 145 mg PO DAILY #30 tab 12/02/17 Furosemide [Lasix] 10 mg PO DAILY PRN PRN tablet 12/02/17 glipiZIDE [Glucotrol] 10 mg PO BID #0 12/02/17 Surgical History: appendectomy, total knee arthroplasty, - - Hiatal hernia surgery. Psychiatric History: Anxiety, Depression Lives: Spouse/ Significant Other Smoking Status: Former smoker Tobacco Use: Non-smoker Alcohol: None Drugs: None - *Family History Maternal History Items: - - No coronary artery disease. Alcohol abuse. Paternal History Items: Stroke Review of Systems Constitutional: Reports: Anorexia, Chills, Fever, Malaise, Weakness, Fatigue. Denies: Weight Change HEENT: Denies: Head Aches, Sinus Congestion, Sinus Drainage Cardiovascular: Denies: Chest Pain, Palpitations Respiratory: Reports: Cough, Shortness of Breath, Shortness of breath at rest, Shortness of breath upon exertion. Denies: Sputum production, Wheezing Gastrointestinal: Reports: Nausea. Denies: Abdominal Pain, Vomiting Genitourinary: Denies: Dysuria Musculoskeletal: Reports: Back Pain. Denies: Joint Pain, Joint Tenderness Skin: Denies: Rash, Wounds Neurological: Reports: Confusion. Denies: Focal weakness, Numbness, Tingling Psychiatric: Reports: Anxiety, Depression. Denies: Homicidal Ideations, Suicidal Ideations Hematologic/ Lymphatic: Denies: Easy Bruising, Easy Bleeding VTE Information - Inpt Only VTE Present on Admission: No VTE Mechan Device Prophylaxis: SCD's VTE Pharm Prophylaxis ordered?: Yes Patient Problems: Active and Suspected Problems Pneumonia (Acute) Subjective: Seated upright in the ED bed, fatigued, hard of hearing, improved from initial presentation. Objective: Physical Examination: General: awake now, more alert than initial presentation, now oriented x 3 and cooperative, seated upright in the ED bed in no apparent distress, fatigued appearing. Skin: normal color, turgor, no icterus, cyanosis. HEENT: AT/NC, EOMI, PERRLA, severely dry MM, no carotid bruits or JVD noted. Lungs: Diminished BS BL, > L mildly coarse L mid-base, mild effort, no wheezing. Heart: Tachycardic with regular rhythm; no gallop, rub audible. Abdomen: soft, overweight, NTTP, ND, normal BS, no HSM. Extremities: no cyanosis, clubbing, or edema. Neurological: patient awake, alert, oriented x 3; cognitive function improved, nearly baseline intact but decreased from baseline; pupils equally reactive to light and accomodation; cranial nerves II-XII grossly normal, moving all 4 extremities, no focal deficits, strength severely globally decreased secondary to acute presentation. Psychiatric: affect appears flat, fatigued, no acute evidence of depressive or anxiety feelings. - Physical Exam Vital Signs Temp Pulse Resp BP Pulse Ox 102.7 F H 103 H 24 H 153/81 H 99 12/05/17 19:24 12/05/17 19:24 12/05/17 19:24 12/05/17 19:24 12/05/17 19:24 Oxygen Flow Rate (L/min) 2 Oxygen Delivery Method Nasal Cannula Weight: 229 lb 8.019 oz Body Mass Index (BMI) 29.5 Finger Stick Blood Glucose 164 Laboratory Tests Past 24 Hrs 12/05/17 12/05/17 12/05/17 18:30 18:30 18:30 WBC 12.9 H RBC 4.61 Hgb 13.5 Hct 42.0 MCV 91.1 MCH 29.3 MCHC 32.1 RDW 15.6 H RDW Differential 52.1 H Plt Count 273 MPV 10.7 Immature Gran % (Auto) 0.200 Neut % (Auto) 75.6 H Lymph % (Auto) 15.4 L [place] % (Auto) 8.4 Eos % (Auto) 0.2 Baso % (Auto) 0.2 Absolute Neuts (auto) 9.7 H Absolute Lymphs (auto) 1.98 Total Counted Not Reportable PT 13.8 INR 1.1 APTT 34.2 Sodium 139 Potassium 3.9 Chloride 104 Carbon Dioxide 25.0 Anion Gap 10 BUN 14 Creatinine 0.87 Estim Creat Clear Calc 102.36 Est GFR (MDRD) Af Amer 115 Est GFR (MDRD) Non-Af 95 BUN/Creatinine Ratio 16.2 Glucose 158 H Lactic Acid Calcium 9.5 Total Bilirubin 0.60 AST 11 L ALT 18 Alkaline Phosphatase 59 Troponin I < 0.02 Total Protein 7.9 Albumin 3.6 Globulin 4.3 H Albumin/Globulin Ratio 0.8 L Urine Color Urine Clarity Urine pH Ur Specific [place] Urine Protein Urine Glucose (UA) Urine Ketones Urine Occult Blood Urine Nitrite Urine Bilirubin Urine Urobilinogen Ur Leukocyte Esterase Urine RBC Urine WBC Ur Squamous Epith Cells Urine Bacteria Urine Mucus 12/05/17 12/05/17 18:30 19:24 WBC RBC Hgb Hct MCV MCH MCHC RDW RDW Differential Plt Count MPV Immature Gran % (Auto) Neut % (Auto) Lymph % (Auto) [place] % (Auto) Eos % (Auto) Baso % (Auto) Absolute Neuts (auto) Absolute Lymphs (auto) Total Counted PT INR APTT Sodium Potassium Chloride Carbon Dioxide Anion Gap BUN Creatinine Estim Creat Clear Calc Est GFR (MDRD) Af Amer Est GFR (MDRD) Non-Af BUN/Creatinine Ratio Glucose Lactic Acid 1.6 Calcium Total Bilirubin AST ALT Alkaline Phosphatase Troponin I Total Protein Albumin Globulin Albumin/Globulin Ratio Urine Color Pending Urine Clarity Pending Urine pH Pending Ur Specific [place] Pending Urine Protein Pending Urine Glucose (UA) Pending Urine Ketones Pending Urine Occult Blood Pending Urine Nitrite Pending Urine Bilirubin Pending Urine Urobilinogen Pending Ur Leukocyte Esterase Pending Urine RBC Pending Urine WBC Pending Ur Squamous Epith Cells Pending Urine Bacteria Pending Urine Mucus Pending Assessment/Plan Active and Suspected Problems Pneumonia (Acute) The patient is a 62 y/o M w/ PMHx: Anxiety and Depression, HTN, GERD, Low Back Pain s/p kyphoplasty wheelchair bound, Diabetes mellitus type II, Chronic Back Pain, Osteogenesis imperfecta, recent evaluation 12/01/17-12/02/17 with acute encephalopathy felt likely metabolic complicated by polypharmacy with overdose of muscle relaxants and high dose narcotics, evaluated also per Neurology at that time who now re-presents to the [facility] ED on 12/05/17 with again metal status change, lethargic, febrile starting today, noted per family to be improved, noted initially 80% on RA for EMS upon transport. (1) Acute Encephalopathy and Sepsis secondary to Acute Hypoxic Respiratory Failure (increased RR, O2 80%) secondary to HCAP Pneumonia: CXR in the ED w/ LLL infiltrate. Admission CBC w/ 12.9 with L shift. Will admit to MS, maintain on oxygen with wean as tolerated to room air, continue ATC duonebs, PRN albuterol, maintained on IV Rocephin and Azithromycin, HOB, IS parameters w/ pending sputum cultures and urine antigens. Bld cx x 2 obtained in the ED. Will obtain AM oxygenation trial for discharge planning daily. (2) Diabetes mellitus type II: Hold oral home regimen, continue home insulin regimen, ADA diet, accu checks w/ ISS. (3) Hypertension: Given elevated SG, likely dehydrated will hold lasix, PRN Hydralazine. (4) Hyperlipidemia: Continue home tricor regimen. (5) Anxiety and Depression: Maintain on home regimen sertraline. (6) GERD: Famotidine. (7) Chronic Back Pain: s/p kyphoplasty, uses wheelchair, fall precautions, PT and OT assessment, position changes, continue home regimen but monitor cautiously given prior lethargy. (8) Hx prior DVT: Maintain on prophylaxis as noted. (9) DVT Prophylaxis: SCDs, lovenox. Code Visit Inpatient E&M: 72517 Init Hosp L3
[2017-12-05] MEDS: Ceftriaxone 1 GM/50 ML BAG IV (21:01)
[2017-12-05] MEDS: 0.9% Normal Saline 1,000 ML 1000 ML IV (21:34)
[2017-12-05 22:34] LABS: Magnesium 1.7 mg/dL (1.6-2.6)
[2017-12-05] MEDS: Albuterol 2.5 MG/3 ML VIAL.NEB. INHALATION (22:35)
[2017-12-05] MEDS: 0.9% Normal Saline 1,000 ML 125 ML IV (22:39)
[2017-12-05 22:55] LABS: Bedside Glucose 196 mg/dL (70-110)
[2017-12-05] MEDS: Sertraline 50 MG Tablet PO (23:03)
[2017-12-05] MEDS: Famotidine 20 MG Tablet PO (23:03)
[2017-12-05] MEDS: guaiFENesin 1,200 MG Tablet 1200 MG PO (23:03)
[2017-12-05] MEDS: Docusate Sodium 100 MG Capsule PO (23:03)
[2017-12-06] VITALS (19 sets, daily range): BP systolic 147–158; BP diastolic 60–72; PULSE 80–104; RESP 16–20; TEMP 37.2–38.8; O2SAT 96–99
[2017-12-06] MEDS: 0.9% Normal Saline 1,000 ML 125 ML IV ×3 (01:48→23:51)
[2017-12-06] MEDS: Ipratropium/Albuterol Sulfate 3 ML AMPUL.NEB INHALATION ×6 (02:28→22:15)
[2017-12-06] MEDS: Acetaminophen 325 MG Tablet 650 MG PO ×2 (04:52→15:18)
[2017-12-06 06:16] LABS: Bedside Glucose 207 mg/dL (70-110)
[2017-12-06 08:19] LABS: Anion Gap 11 (5-15); BUN 12 mg/dL (7-18); BUN/Creat Ratio 19.6 RATIO (10-20); Calcium,Total 8.4 mg/dL (8.5-10.1); Chloride 106 mmol/L (98-107); Creatinine, Serum 0.61 mg/dL (0.70-1.30); EST Glomerular Filtration Rate 142 mL/min (>60); Est Glom Filt Rate - Afr Amer 172 mL/min (>60); Estimated Creatinine Clearance 145.98 ml/min; Glucose 196 mg/dL (74-106); Potassium 3.6 mmol/L (3.5-5.1); Sodium Level 139 mmol/L (136-145)
[2017-12-06 08:21] LABS: Absolute Lymphocyte Count 2.15 X10^3/ul (0.83-4.51); Absolute Neutrophil Count 7.6 X10^3/uL (2.0-7.7); Basophil# 0.03 X10^3/uL; Basophil% 0.3 % (0-1); Eosinophil# 0.02 X10^3/uL; Eosinophils% 0.2 % (0-5); Hematocrit 37.3 % (40-54); Hemoglobin 11.9 g/dl (13.0-16.5); Lymphocyte # 2.15 X10^3/ul (4.0); Lymphocyte % 20.1 % (19-41); Mean Corp Hgb Conc 31.9 g/gl (32-36); Mean Corpuscular Hgb 29.2 pg (27.0-32.0); Mean Corpuscular Volume 91.6 fL (80-94); Mean Platelet Vol. 10.7 fl (6.2-12.0); Monocyte# 0.85 X10^3/uL; Neutrophil % 71.1 % (47-70); Platelet Count 236 K/mm3 (150-450); RBC Distribution Width CV 15.6 % (11.6-14.6); RBC Distribution Width SD 52.2 fl (35.1-43.9); Red Blood Count 4.07 M/mm3 (4.6-6.2); White Blood Count 10.7 K/mm3 (4.4-11.0)
[2017-12-06 08:23] LABS: POSITIVE COUNT NO; POSITIVE DIFFERENTIAL NO; POSITIVE MORPHOLOGY NO
[2017-12-06] MEDS: guaiFENesin 1,200 MG Tablet 1200 MG PO ×3 (08:31→21:46)
[2017-12-06] MEDS: Docusate Sodium 100 MG Capsule PO ×3 (08:31→21:46)
[2017-12-06] MEDS: Famotidine 20 MG Tablet PO ×3 (08:31→21:46)
[2017-12-06] MEDS: Ascorbic Acid 500 MG Tablet 1000 MG PO ×3 (08:31→17:16)
--- NOTE | 2017-12-06 08:43 | PCM.PROGNOTE ---
Patient Problems: Active and Suspected Problems Pneumonia (Acute) Subjective: Patient is lethargic today, but wakes up with tactile stimuli. Minimally interactive initially, but became more alert and ate few bites of breakfast. - Physical Exam General: No apparent distress, Lethargic HEENT: Atraumatic Oral: Moist Mucosa Neck: Supple, No JVD Lungs: Rales - bilateral, left worse than right. Cardiovascular: Regular rate, Regular Rhythm, Normal S1, Normal S2, No murmurs, No Ectopic Activity Abdomen: Bowel Sounds Present, Soft, Non Tender, Non-Distended, No Hepato-splenomegaly Extremities: No clubbing, - - skin atrophy noted. Warm to touch. Skin: No rashes, No breakdown Musculoskeletal: No Tenderness to Palpation of Joints or Extremities, Muscle Wasting - Mild wasting at lower extremities. Lymphatic: No Cervical, Supraclavicular, or Inguinal Adenopathy Neurological: Cranial nerves II-XII grossly intact Psych/Mental Status: - - Somnolent. Vital Signs Temp Pulse Resp BP Pulse Ox 100.3 F H 81 16 154/72 H 97 12/06/17 06:33 12/06/17 07:40 12/06/17 07:40 12/06/17 05:23 12/06/17 07:40 Oxygen Flow Rate (L/min) 2 Oxygen Delivery Method Nasal Cannula Weight: 227 lb 1.218 oz Body Mass Index (BMI) 29.1 Intake and Output for Last 24 Hours 12/04/17 12/05/17 12/06/17 23:59 23:59 23:59 Intake Total 1261 / 1261 Output Total 700 / 700 Balance 561 / 561 Microbiology Past 72 Hours 12/05/17 23:00 Streptococcus pneumoniae Antigen (M - Final Urine Catheter - [facility] 12/05/17 23:00 Legionella Antigen - Final Urine Catheter - [facility] Laboratory Tests Past 24 Hrs 12/06/17 12/06/17 07:10 07:10 WBC 10.7 RBC 4.07 L Hgb 11.9 L Hct 37.3 L MCV 91.6 MCH 29.2 MCHC 31.9 L RDW 15.6 H RDW Differential 52.2 H Plt Count 236 MPV 10.7 Immature Gran % (Auto) 0.300 Neut % (Auto) 71.1 H Lymph % (Auto) 20.1 [place] % (Auto) 8.0 Eos % (Auto) 0.2 Baso % (Auto) 0.3 Absolute Neuts (auto) 7.6 Absolute Lymphs (auto) 2.15 Total Counted Not Reportable Sodium 139 Potassium 3.6 Chloride 106 Carbon Dioxide 22.0 Anion Gap 11 BUN 12 Creatinine 0.61 L Estim Creat Clear Calc 145.98 Est GFR (MDRD) Af Amer 172 Est GFR (MDRD) Non-Af 142 BUN/Creatinine Ratio 19.6 Glucose 196 H Calcium 8.4 L POC Glucose 12/06/17 12/05/17 06:09 22:30 POC Glucose 207 H 196 H Diagnostic Data Chest X-Ray 12/05/17 19:14 IMPRESSION: Left lower lobe infiltrate suggesting an early pneumonia. Electronically Signed: Frandy Young MD at 19:38 EDT , Service support , Medical Necessity - Tobacco Use Smoking Status: Former smoker Tobacco Use: Non-smoker Assessment/Plan Active and Suspected Problems Pneumonia (Acute) The patient is a 62 years old male presents with metabolic encephalopathy likely due to sepsis and hypoxic respiratory failure with LLL pneumonia. He was hypoxic at Oxygen saturation 80% initially. CXR finding of LLL infiltrate. WBC was 13, started on Rocephin and azithromycin. He has chronic back pain, wheelchair bound. #1 Acute Encephalopathy due to Sepsis and Acute Hypoxic Respiratory Failure with LLL pneumonia. Ceftriaxone and azithromycin started. Continue. Oxygen prn. Continue aerosol treatment with Duoneb along with albuterol prn. Await blood culture and sputum culture. He still has low grade fever, and he is lethargic. Continue current care. #2 Diabetes mellitus type II: Hold oral hypoglycemic agents, and continue insulin along with sliding scale. Diabetic diet. Monitor BS check AC/HS. #3 Essential hypertension. Stable. Continue home meds. Hold Lasix for clinical dehydration. PRN hydralazine IV. #4 Hyperlipidemia. Continue current medications. #5 Chronic back pain. S/P kyphoplasty. He is wheelchair bound. PT/OT consult. Continue home pain medication regimen, hydrocodone/APAP prn. #6 Anxiety and Depression: Continue Zoloft. VTE prophylaxis: SCD + Lovenox. GI prophylaxis: H2 alana po. Patient is full code. Disposition: ECF. Code Visit Inpatient E&M: 93144 Subs Hosp L3
[2017-12-06] MEDS: Fenofibrate 145 MG Tablet PO (08:55)
--- NOTE | 2017-12-06 09:02 | PN_ITS ---
Patient Problems: Active and Suspected Problems Pneumonia (Acute) Subjective: Patient is lethargic today, but wakes up with tactile stimuli. Minimally interactive initially, but became more alert and ate few bites of breakfast. - Physical Exam General: No apparent distress, Lethargic HEENT: Atraumatic Oral: Moist Mucosa Neck: Supple, No JVD Lungs: Rales - bilateral, left worse than right. Cardiovascular: Regular rate, Regular Rhythm, Normal S1, Normal S2, No murmurs, No Ectopic Activity Abdomen: Bowel Sounds Present, Soft, Non Tender, Non-Distended, No Hepato- splenomegaly Extremities: No clubbing, - - skin atrophy noted. Warm to touch. Skin: No rashes, No breakdown Musculoskeletal: No Tenderness to Palpation of Joints or Extremities, Muscle Wasting - Mild wasting at lower extremities. Lymphatic: No Cervical, Supraclavicular, or Inguinal Adenopathy Neurological: Cranial nerves II-XII grossly intact Psych/Mental Status: - - Somnolent. Vital Signs Temp Pulse Resp BP Pulse Ox 100.3 F H 81 16 154/72 H 97 12/06/17 06:33 12/06/17 07:40 12/06/17 07:40 12/06/17 05:23 12/06/17 07:40 Oxygen Flow Rate (L/min) 2 Oxygen Delivery Method Nasal Cannula Weight: 227 lb 1.218 oz Body Mass Index (BMI) 29.1 Intake and Output for Last 24 Hours 12/04/17 12/05/17 12/06/17 23:59 23:59 23:59 Intake Total 1261 / 1261 Output Total 700 / 700 Balance 561 / 561 Microbiology Past 72 Hours 12/05/17 23:00 Streptococcus pneumoniae Antigen (M - Final Urine Catheter - [facility] 12/05/17 23:00 Legionella Antigen - Final Urine Catheter - [facility] Laboratory Tests Past 24 Hrs 12/06/17 12/06/17 07:10 07:10 WBC 10.7 RBC 4.07 L Hgb 11.9 L Hct 37.3 L MCV 91.6 MCH 29.2 MCHC 31.9 L RDW 15.6 H RDW Differential 52.2 H Plt Count 236 MPV 10.7 Immature Gran % (Auto) 0.300 Neut % (Auto) 71.1 H Lymph % (Auto) 20.1 [place] % (Auto) 8.0 Eos % (Auto) 0.2 Baso % (Auto) 0.3 Absolute Neuts (auto) 7.6 Absolute Lymphs (auto) 2.15 Total Counted Not Reportable Sodium 139 Potassium 3.6 Chloride 106 Carbon Dioxide 22.0 Anion Gap 11 BUN 12 Creatinine 0.61 L Estim Creat Clear Calc 145.98 Est GFR (MDRD) Af Amer 172 Est GFR (MDRD) Non-Af 142 BUN/Creatinine Ratio 19.6 Glucose 196 H Calcium 8.4 L POC Glucose 12/06/17 12/05/17 06:09 22:30 POC Glucose 207 H 196 H Diagnostic Data Chest X-Ray 12/05/17 19:14 IMPRESSION: Left lower lobe infiltrate suggesting an early pneumonia. Electronically Signed: Frandy Young MD at 19:38 EDT , Service support , Medical Necessity - Tobacco Use Smoking Status: Former smoker Tobacco Use: Non-smoker Assessment/Plan Active and Suspected Problems Pneumonia (Acute) The patient is a 62 years old male presents with metabolic encephalopathy likely due to sepsis and hypoxic respiratory failure with LLL pneumonia. He was hypoxic at Oxygen saturation 80% initially. CXR finding of LLL infiltrate. WBC was 13, started on Rocephin and azithromycin. He has chronic back pain, wheelchair bound. #1 Acute Encephalopathy due to Sepsis and Acute Hypoxic Respiratory Failure with LLL pneumonia. Ceftriaxone and azithromycin started. Continue. Oxygen prn. Continue aerosol treatment with Duoneb along with albuterol prn. Await blood culture and sputum culture. He still has low grade fever, and he is lethargic. Continue current care. #2 Diabetes mellitus type II: Hold oral hypoglycemic agents, and continue insulin along with sliding scale. Diabetic diet. Monitor BS check AC/HS. #3 Essential hypertension. Stable. Continue home meds. Hold Lasix for clinical dehydration. PRN hydralazine IV. #4 Hyperlipidemia. Continue current medications. #5 Chronic back pain. S/P kyphoplasty. He is wheelchair bound. PT/OT consult. Continue home pain medication regimen, hydrocodone/APAP prn. #6 Anxiety and Depression: Continue Zoloft. VTE prophylaxis: SCD + Lovenox. GI prophylaxis: H2 alana po. Patient is full code. Disposition: ECF. Code Visit Inpatient E&M: 13620 Subs Hosp L3
[2017-12-06] MEDS: Ceftriaxone 1 GM/50 ML BAG IV (10:06)
[2017-12-06] MEDS: Enoxaparin 40 MG/0.4 ML Syringe SC (10:07)
[2017-12-06 12:16] LABS: Bedside Glucose 319 mg/dL (70-110)
--- NOTE | 2017-12-06 14:05 | CASEMGMT ---
SW was asked to see patient as he has Passport. Patient was recently in the hospital November 22. Per note from recent visit patient has a hospital bed with trapeze, wheelchair, walker, cane, shower chair, bedside commode, raised toilet seat, and hand held shower. His Passport CM is Tequila Thornton- [phone]. Patient gets aide services 7 days a week for 7 hrs a day through [facility]. He also has senior living and PT through [facility]. SW met with patient and his . Patient is confused so SW spoke with his . SW spoke with patient's and she wants to take him home unless he is confused. She said she needs him to be alert enough that he can assist with transfers. She said if it ends up that he has to go somewhere she would prefer [facility] as he has been there in the past. KATHERYN told her that KATHERYN will follow up on Friday. KATHERYN called Tequila Thornton and left her a voice mail letting her know patient was here in the hospital. SW to follow up on Friday. Katy SHEIKH MSW
[2017-12-06] MEDS: 0.9% NaCl Peripheral Flush Adult/Peds IV (15:04)
[2017-12-06 21:41] LABS: Bedside Glucose 214 mg/dL (70-110)
[2017-12-06] MEDS: Sertraline 50 MG Tablet PO (21:46)
[2017-12-06 22:05] LABS: Bedside Glucose 219 mg/dL (70-110)
[2017-12-07] VITALS (10 sets, daily range): BP systolic 131–152; BP diastolic 64–77; PULSE 70–89; RESP 16–18; TEMP 36.9–37.3; O2SAT 94–98
[2017-12-07] MEDS: Acetaminophen 325 MG Tablet 650 MG PO (01:01)
[2017-12-07 06:35] LABS: Hematocrit 33.5 % (40-54); Mean Corp Hgb Conc 32.8 g/gl (32-36); Mean Corpuscular Hgb 29.9 pg (27.0-32.0); Mean Platelet Vol. 10.6 fl (6.2-12.0); Platelet Count 218 K/mm3 (150-450); RBC Distribution Width CV 15.1 % (11.6-14.6); RBC Distribution Width SD 49.4 fl (35.1-43.9); Red Blood Count 3.68 M/mm3 (4.6-6.2); White Blood Count 8.5 K/mm3 (4.4-11.0)
[2017-12-07 06:40] LABS: Scan Indicated on CBC? Y/N NO
[2017-12-07 06:50] LABS: Anion Gap 9 (5-15); BUN 9 mg/dL (7-18); BUN/Creat Ratio 14.3 RATIO (10-20); Calcium,Total 8.3 mg/dL (8.5-10.1); Chloride 107 mmol/L (98-107); Creatinine, Serum 0.63 mg/dL (0.70-1.30); EST Glomerular Filtration Rate 138 mL/min (>60); Est Glom Filt Rate - Afr Amer 167 mL/min (>60); Estimated Creatinine Clearance 141.35 ml/min; Glucose 206 mg/dL (74-106); Potassium 3.6 mmol/L (3.5-5.1); Sodium Level 140 mmol/L (136-145)
[2017-12-07 08:21] LABS: Bedside Glucose 237 mg/dL (70-110)
[2017-12-07] MEDS: Ascorbic Acid 500 MG Tablet 1000 MG PO ×2 (08:33→16:37)
[2017-12-07] MEDS: 0.9% Normal Saline 1,000 ML 125 ML IV (08:33)
[2017-12-07] MEDS: guaiFENesin 1,200 MG Tablet 1200 MG PO ×2 (08:34→22:21)
[2017-12-07] MEDS: Famotidine 20 MG Tablet PO ×2 (08:34→22:21)
[2017-12-07] MEDS: Fenofibrate 145 MG Tablet PO (08:34)
[2017-12-07] MEDS: Docusate Sodium 100 MG Capsule PO ×2 (08:34→22:22)
[2017-12-07] MEDS: Ceftriaxone 1 GM/50 ML BAG IV (10:00)
[2017-12-07] MEDS: Enoxaparin 40 MG/0.4 ML Syringe SC (10:03)
--- NOTE | 2017-12-07 10:03 | PN_ITS ---
Patient Problems: Active and Suspected Problems Pneumonia (Acute) Subjective: He is much more awake this morning. He was unable to tell place, but knew it was hospital. According to his , he appears confused still. - Physical Exam General: No apparent distress, Lethargic HEENT: Atraumatic Oral: Moist Mucosa Neck: Supple, No JVD Lungs: Rales - bilateral, left worse than right. Cardiovascular: Regular rate, Regular Rhythm, Normal S1, Normal S2, No murmurs, No Ectopic Activity Abdomen: Bowel Sounds Present, Soft, Non Tender, Non-Distended, No Hepato- splenomegaly Extremities: No clubbing, - - skin atrophy noted. Warm to touch. Skin: No rashes, No breakdown Musculoskeletal: No Tenderness to Palpation of Joints or Extremities, Muscle Wasting - Mild wasting at lower extremities. Lymphatic: No Cervical, Supraclavicular, or Inguinal Adenopathy Neurological: Cranial nerves II-XII grossly intact Psych/Mental Status: - Awake, oriented to person, partially to place. Difficult to assess due to hard of hearing. - Physical Exam Vital Signs Temp Pulse Resp BP Pulse Ox 99.2 F H 70 18 131/64 H 94 12/07/17 02:49 12/07/17 03:55 12/07/17 02:49 12/07/17 02:49 12/07/17 02:49 Oxygen Flow Rate (L/min) 2 Oxygen Delivery Method Room Air Weight: 227 lb 1.218 oz Body Mass Index (BMI) 29.1 Intake and Output for Last 24 Hours 12/05/17 12/06/17 12/07/17 23:59 23:59 23:59 Intake Total 4656 / 4656 994 / 994 Output Total 2200 / 2200 Balance 2456 / 2456 994 / 994 Microbiology Past 72 Hours 12/05/17 23:00 Streptococcus pneumoniae Antigen (M - Final Urine Catheter - [facility] 12/05/17 23:00 Legionella Antigen - Final Urine Catheter - [facility] Laboratory Tests Past 24 Hrs 12/07/17 12/07/17 06:00 06:00 WBC 8.5 RBC 3.68 L Hgb 11.0 L Hct 33.5 L MCV 91.0 MCH 29.9 MCHC 32.8 RDW 15.1 H RDW Differential 49.4 H Plt Count 218 MPV 10.6 Sodium 140 Potassium 3.6 Chloride 107 Carbon Dioxide 24.0 Anion Gap 9 BUN 9 Creatinine 0.63 L Estim Creat Clear Calc 141.35 Est GFR (MDRD) Af Amer 167 Est GFR (MDRD) Non-Af 138 BUN/Creatinine Ratio 14.3 Glucose 206 H Calcium 8.3 L POC Glucose 12/07/17 12/06/17 12/06/17 07:57 21:37 17:14 POC Glucose 237 H 219 H 214 H 12/06/17 11:47 POC Glucose 319 H Diagnostic Data Chest X-Ray 12/05/17 19:14 IMPRESSION: Left lower lobe infiltrate suggesting an early pneumonia. Electronically Signed: Frandy Young MD at 19:38 EDT , Service support , Medical Necessity - Tobacco Use Smoking Status: Former smoker Tobacco Use: Non-smoker Assessment/Plan Active and Suspected Problems Pneumonia (Acute) The patient is a 62 years old male presents with metabolic encephalopathy likely due to sepsis and hypoxic respiratory failure with LLL pneumonia. He was hypoxic at Oxygen saturation 80% initially. CXR finding of LLL infiltrate. WBC was 13, started on Rocephin and azithromycin. He has chronic back pain, wheelchair bound. #1 Acute Encephalopathy due to Sepsis and Acute Hypoxic Respiratory Failure with LLL pneumonia. Ceftriaxone and azithromycin started. Continue. Oxygen prn. Continue aerosol treatment with DuoNeb along with albuterol Med Neb prn. Await blood culture and sputum culture. Osat improved, 94% room air. He still has low grade fever, T-max 100.8 last 24 hours. 99.2 this morning. Continue current care and antibiotics. #2 Diabetes mellitus type II: Hold oral hypoglycemic agents, and continue insulin along with sliding scale. Diabetic diet. Monitor BS check AC/HS. #3 Essential hypertension. Stable. Continue home meds. Lasix withheld. He was taking as needed. PRN hydralazine IV. He is fully awake now, discontinue IVF. #4 Hyperlipidemia. Continue current medications. #5 Chronic back pain. S/P kyphoplasty. He is wheelchair bound. PT/OT consult. Continue home pain medication regimen, hydrocodone/APAP prn. #6 Anxiety and Depression: Continue Zoloft. VTE prophylaxis: SCD + Lovenox. GI prophylaxis: H2 alana po. Patient is full code. Disposition: Home with home care. He is already wheelchair bound prior to admission. Code Visit Inpatient E&M: 59505 Subs Hosp L2
[2017-12-07 12:06] LABS: Bedside Glucose 207 mg/dL (70-110)
[2017-12-07 16:45] LABS: Bedside Glucose 311 mg/dL (70-110)
[2017-12-07] MEDS: Sertraline 50 MG Tablet PO (22:21)
[2017-12-07 22:31] LABS: Bedside Glucose 243 mg/dL (70-110)
[2017-12-08] VITALS (8 sets, daily range): BP systolic 118–138; BP diastolic 61–79; PULSE 65–87; RESP 16–20; TEMP 36.6–37.1; O2SAT 93–98
[2017-12-08 06:28] LABS: Hematocrit 32.9 % (40-54); Mean Corp Hgb Conc 33.4 g/gl (32-36); Mean Corpuscular Volume 89.6 fL (80-94); Mean Platelet Vol. 10.5 fl (6.2-12.0); Platelet Count 244 K/mm3 (150-450); RBC Distribution Width CV 14.7 % (11.6-14.6); RBC Distribution Width SD 47.4 fl (35.1-43.9); Red Blood Count 3.67 M/mm3 (4.6-6.2); White Blood Count 7.9 K/mm3 (4.4-11.0)
[2017-12-08 06:40] LABS: Scan Indicated on CBC? Y/N NO
[2017-12-08 07:00] LABS: Anion Gap 8 (5-15); BUN 11 mg/dL (7-18); BUN/Creat Ratio 18.6 RATIO (10-20); Calcium,Total 8.8 mg/dL (8.5-10.1); Chloride 106 mmol/L (98-107); Creatinine, Serum 0.59 mg/dL (0.70-1.30); EST Glomerular Filtration Rate 148 mL/min (>60); Est Glom Filt Rate - Afr Amer 179 mL/min (>60); Estimated Creatinine Clearance 150.93 ml/min; Glucose 245 mg/dL (74-106); Potassium 3.8 mmol/L (3.5-5.1); Sodium Level 138 mmol/L (136-145)
--- NOTE | 2017-12-08 08:40 | RAD_ITS ---
STUDY: X-RAY CHEST REASON FOR EXAM: Male, 62 years old. Shortness of breath and hypoxia TECHNIQUE: PA and lateral views of the chest. COMPARISON: December 05, 2017 chest x-ray FINDINGS: There is minimal groundglass opacity mild increase interstitial markings. There is no demonstrated pleural abnormality. There is mild cardiac enlargement. Normal mediastinum and deana. Normal visualized pulmonary arteries. There is atherosclerotic tortuosity of the aortic arch and descending thoracic aorta. There are diffuse degenerative changes of the visualized thoracic spine. Normal visualized ribs, clavicles, and shoulders. There is no demonstrated abnormality of the visualized soft tissue structures of the upper abdomen. RAD/Chest PA and Lateral IMPRESSION: Findings is suspicious for possible mild interstitial edema. Cardiomegaly. Tortuous aorta. Electronically Signed: Ashley Harrison MD at 16:53 EDT Tel , Service support ,
[2017-12-08] MEDS: Famotidine 20 MG Tablet PO ×2 (09:27→21:00)
[2017-12-08] MEDS: Senna/Docusate Sodium 1 Tablet 2 TABLET PO (09:27)
[2017-12-08] MEDS: Ascorbic Acid 500 MG Tablet 1000 MG PO ×2 (09:27→16:55)
[2017-12-08] MEDS: Ceftriaxone 1 GM/50 ML BAG IV (09:27)
[2017-12-08] MEDS: Fenofibrate 145 MG Tablet PO (09:28)
[2017-12-08] MEDS: Enoxaparin 40 MG/0.4 ML Syringe SC (09:28)
[2017-12-08 09:45] LABS: Bedside Glucose 297 mg/dL (70-110)
[2017-12-08] MEDS: Ipratropium/Albuterol Sulfate 3 ML AMPUL.NEB INHALATION (10:33)
[2017-12-08] MEDS: guaiFENesin 1,200 MG Tablet 1200 MG PO ×2 (11:23→21:00)
[2017-12-08] MEDS: Docusate Sodium 100 MG Capsule PO ×2 (11:23→21:00)
[2017-12-08 12:46] LABS: Bedside Glucose 235 mg/dL (70-110)
--- NOTE | 2017-12-08 13:58 | CASEMGMT ---
SW received a message from [facility] states that they may not be able to take pt, they may not have a bed. She states she will let this SW know for certain, but pt should have a backup plan. Also, pt needs updated OT notes to be forwarded to SNF, no updates are in as of yet. SW will follow up w/ for additional choices. MEDINA Sheppard, CYLINDER BATCHER
--- NOTE | 2017-12-08 14:21 | CASEMGMT ---
[facility] cannot take pt. KATHERYN will follow up w/ for other options. MEDINA Sheppard, PROFESSOR OF COMMUNICATION
--- NOTE | 2017-12-08 15:27 | CASEMGMT ---
KATHERYN called patient's and let her know that [facility] cannot take him. She said her next choices would be 1:[facility] and 2: [facility]. KATHERYN faxed referral to [facility]. Await response. Katy SHEIKH MSW
[2017-12-08 17:20] LABS: Bedside Glucose 250 mg/dL (70-110)
--- NOTE | 2017-12-08 17:53 | PCM.PROGNOTE ---
Patient Problems: Active and Suspected Problems Pneumonia (Acute) Subjective: Patient was seen and examined today, he remains confused, he is in no respiratory distress, chest x-ray showed mild interstitial edema. Patient is on room air and is afebrile. I decided to change the patient to oral antibiotics, requests that the patient be placed in a penitentiary facility as she is unable to care for him at this time. - Physical Exam General: Alert, No apparent distress, Well developed, Confused HEENT: Atraumatic, PERRLA, EOMI, Normocephalic Oral: Moist Mucosa Neck: Supple, No JVD, No Nuchal Rigidity, Trachea Midline, Thyroid Normal Size and Texture Lungs: Clear to auscultation, Normal air movement, No rhonchi, No wheeze, No rales Cardiovascular: Regular rate, Regular Rhythm, Normal S1, Normal S2, No murmurs, No Ectopic Activity, PMI Normal, No rub noted, No Gallop Abdomen: Bowel Sounds Present, Soft, Non Tender, Non-Distended, No hernias noted Extremities: No clubbing, No cyanosis, No edema, Capillary Refill Less than 3 Seconds Skin: No rashes, No breakdown Neurological: Cranial nerves II-XII grossly intact, Neuro grossly intact, Sensory exam intact to light touch and pain Psych/Mental Status: Flat Affect, - - Patient is alert, he remains confused, follows some instructions appropriately Vital Signs Temp Pulse Resp BP Pulse Ox 98.0 F 79 20 H 118/65 97 12/08/17 14:43 12/08/17 14:43 12/08/17 14:43 12/08/17 14:43 12/08/17 14:43 Oxygen Flow Rate (L/min) 2 Oxygen Delivery Method Room Air Weight: 103 kg Body Mass Index (BMI) 29.1 Intake and Output for Last 24 Hours 12/06/17 12/07/17 12/08/17 23:59 23:59 23:59 Intake Total 4656 / 4656 2682 / 2682 799 / 799 Output Total 2200 / 2200 925 / 925 Balance 2456 / 2456 2682 / 2682 -126 / -126 Microbiology Past 72 Hours 12/05/17 23:00 Streptococcus pneumoniae Antigen (M - Final Urine Catheter - Jim[facility] 12/05/17 23:00 Legionella Antigen - Final Urine Catheter - [facility] Laboratory Tests Past 24 Hrs 12/08/17 12/08/17 06:15 06:15 WBC 7.9 RBC 3.67 L Hgb 11.0 L Hct 32.9 L MCV 89.6 MCH 30.0 MCHC 33.4 RDW 14.7 H RDW Differential 47.4 H Plt Count 244 MPV 10.5 Sodium 138 Potassium 3.8 Chloride 106 Carbon Dioxide 24.0 Anion Gap 8 BUN 11 Creatinine 0.59 L Estim Creat Clear Calc 150.93 Est GFR (MDRD) Af Amer 179 Est GFR (MDRD) Non-Af 148 BUN/Creatinine Ratio 18.6 Glucose 245 H Calcium 8.8 POC Glucose 12/08/17 12/08/17 12/08/17 16:49 12:22 09:13 POC Glucose 250 H 235 H 297 H 12/07/17 22:20 POC Glucose 243 H Medical Necessity - Tobacco Use Smoking Status: Former smoker Tobacco Use: Non-smoker Assessment/Plan Active and Suspected Problems Pneumonia (Acute) #1 acute encephalopathy secondary to metabolic reasons-left lower lobe pneumonia and hypoxia-patient's chest x-ray today does not show definite left lower lobe infiltrate, I will change him to oral antibiotics and continue to observe. Patient will need placement in a penitentiary facility-temporary #2 left lower lobe pneumonia-healthcare acquired for an continue patient on oral Levaquin #3 type 2 diabetes-continue current blood sugar coverage and insulin dosage #4 possible normal pressure hydrocephalus-patient is due to see a neurosurgeon as an outpatient, I do not feel that this is playing a part in the patient's encephalopathy during this admission #5 osteogenesis imperfecta #6 chronic pain syndrome secondary to past history of vertebral fracture and right leg fracture-patient is currently on Vicodin as needed #7 hypertension Code Visit Inpatient E&M: 37768 Subs Hosp L2
[2017-12-08] MEDS: Sertraline 50 MG Tablet PO (21:00)
[2017-12-08 21:11] LABS: Bedside Glucose 279 mg/dL (70-110)
[2017-12-09] VITALS (7 sets, daily range): BP systolic 122–129; BP diastolic 68–78; PULSE 75–86; RESP 16–18; TEMP 36.3–37.1; O2SAT 93–96
[2017-12-09 06:01] LABS: Hematocrit 33.6 % (40-54); Hemoglobin 11.3 g/dl (13.0-16.5); Mean Corp Hgb Conc 33.6 g/gl (32-36); Mean Corpuscular Hgb 30.1 pg (27.0-32.0); Mean Corpuscular Volume 89.4 fL (80-94); Mean Platelet Vol. 10.8 fl (6.2-12.0); Platelet Count 291 K/mm3 (150-450); RBC Distribution Width CV 14.6 % (11.6-14.6); RBC Distribution Width SD 46.6 fl (35.1-43.9); Red Blood Count 3.76 M/mm3 (4.6-6.2); White Blood Count 7.3 K/mm3 (4.4-11.0)
[2017-12-09 06:06] LABS: Scan Indicated on CBC? Y/N NO
[2017-12-09 06:19] LABS: Anion Gap 7 (5-15); BUN 10 mg/dL (7-18); BUN/Creat Ratio 16.2 RATIO (10-20); Calcium,Total 9.3 mg/dL (8.5-10.1); Chloride 104 mmol/L (98-107); Creatinine, Serum 0.62 mg/dL (0.70-1.30); EST Glomerular Filtration Rate 141 mL/min (>60); Est Glom Filt Rate - Afr Amer 170 mL/min (>60); Estimated Creatinine Clearance 143.63 ml/min; Glucose 242 mg/dL (74-106); Potassium 3.9 mmol/L (3.5-5.1); Sodium Level 137 mmol/L (136-145)
[2017-12-09] MEDS: levoFLOXacin 500 MG Tablet PO (06:32)
[2017-12-09] MEDS: Ipratropium/Albuterol Sulfate 3 ML AMPUL.NEB INHALATION ×3 (07:32→19:24)
[2017-12-09] MEDS: guaiFENesin 1,200 MG Tablet 1200 MG PO ×2 (08:09→21:38)
[2017-12-09] MEDS: Ascorbic Acid 500 MG Tablet 1000 MG PO ×2 (08:10→18:00)
[2017-12-09] MEDS: Fenofibrate 145 MG Tablet PO (08:10)
[2017-12-09] MEDS: Famotidine 20 MG Tablet PO ×2 (08:10→21:38)
[2017-12-09] MEDS: Docusate Sodium 100 MG Capsule PO ×2 (08:10→21:39)
--- NOTE | 2017-12-09 08:13 | NURSING ---
bilateral hearing aides in place- patient still very TAZLINA
[2017-12-09 08:21] LABS: Bedside Glucose 251 mg/dL (70-110)
--- NOTE | 2017-12-09 08:43 | CASEMGMT ---
Social Work Note Placed call to [facility] and was provided with Claudine, admissions coordinators cell phone [[phone]]. Placed call to Claudine and left vm with pt's weights and oral atb to be discharged on per her request. SW to continue to follow and assist with discharge planning. Plan: SNF pending acceptance and pre-cert. Yisel Patel, INTELLIGENCE OFFICER BASIC, MEDICAL REVIEWER
[2017-12-09] MEDS: Enoxaparin 40 MG/0.4 ML Syringe SC (10:14)
[2017-12-09 11:06] LABS: Bedside Glucose 286 mg/dL (70-110)
--- NOTE | 2017-12-09 14:14 | CASEMGMT ---
Social Work Note Call from Claudine at [facility] stating that they are not in network, but pt could come on Medicaid. It is this SW's understanding that family would like this pt and another on the unit to be placed in the same facility. Placed call to pt's as she was not in pt's room and he was presently working with PT/OT. Pt's was unavailable and SW left requesting a return phone call. Faxed initial referral to the only facility in [place] that appears to be in network, [facility]. Left with Ingrid and Initial referral faxed. Will continue to follow and assist with discharge planning. Plan: SNF pending acceptance and pre-cert. Yisel Patel, JAVA DEVELOPER, TRACK HOE OPERATOR
--- NOTE | 2017-12-09 14:21 | NURSING ---
Therapy in with patient at this time.
--- NOTE | 2017-12-09 15:30 | CASEMGMT ---
KATHERYN spoke with patient's per her request. SW let her know that Sirisha spoke with [facility] and they are out of network with patient's insurance, but they could accept him on his Medicaid. KATHERYN also let her know Sirisha made a referral to [facility] and we are still waiting on their response. KATHERYN asked what she would prefer if [facility] says no. She said [facility] and [facility] are also options. She would prefer patient go to the [facility] on his [place] rather than his Medicaid, but if he has to then that is fine. KATHERYN told her we will continue to work on this and then let her know. She gave SW her cell phone number [phone]. Plan: SNF pending accepting facility and insurance approval Katy ZENDEJAS
[2017-12-09 15:56] LABS: Bedside Glucose 298 mg/dL (70-110)
--- NOTE | 2017-12-09 17:02 | PN_ITS ---
Patient Problems: Active and Suspected Problems Pneumonia (Acute) Subjective: Patient seen and examined today, he appears less confused and more directable today although he is inappropriate at times still. His white blood cell count is normal at 7.3, he remains afebrile, urine culture grew out small amounts of staph hominis-I believe this is not truly a cystitis but may be a contaminant from the distal urethra. The patient's at length today in the phone, he is due to see a neurosurgeon as an outpatient for evaluation of possible normal pressure hydrocephalus, she will not be able to take care of him at home due to his present confusion. In reading through the neurology consultation from his last admission, it was unclear whether this abnormal MRI really played a part in the patient's confusion at that time. - Physical Exam General: Alert, No apparent distress, Well developed HEENT: Atraumatic, PERRLA, EOMI, Normocephalic Oral: Moist Mucosa Neck: Supple, No JVD, No Nuchal Rigidity, Trachea Midline, Thyroid Normal Size and Texture Lungs: Clear to auscultation, Normal air movement, No rhonchi, No wheeze, No rales Cardiovascular: Regular rate, Regular Rhythm, Normal S1, Normal S2, No murmurs, No Ectopic Activity, PMI Normal, No rub noted, No Gallop Abdomen: Bowel Sounds Present, Soft, Non Tender, Non-Distended, No hernias noted Extremities: No clubbing, No cyanosis, No edema, Capillary Refill Less than 3 Seconds Skin: No rashes, No breakdown Musculoskeletal: No Tenderness to Palpation of Joints or Extremities Neurological: Cranial nerves II-XII grossly intact, Neuro grossly intact Psych/Mental Status: - - Patient is alert but confused at times, he does follow some instructions Vital Signs Temp Pulse Resp BP Pulse Ox 98.7 F 81 18 128/78 H 94 12/09/17 15:37 12/09/17 15:37 12/09/17 15:37 12/09/17 15:37 12/09/17 15:37 Oxygen Flow Rate (L/min) 2 Oxygen Delivery Method Room Air Weight: 103 kg Body Mass Index (BMI) 29.1 Intake and Output for Last 24 Hours 12/07/17 12/08/17 12/09/17 23:59 23:59 23:59 Intake Total 2682 / 2682 1549 / 1549 1300 / 1300 Output Total 1425 / 1425 200 / 200 Balance 2682 / 2682 124 / 124 1100 / 1100 Laboratory Tests Past 24 Hrs 12/09/17 12/09/17 05:30 05:30 WBC 7.3 RBC 3.76 L Hgb 11.3 L Hct 33.6 L MCV 89.4 MCH 30.1 MCHC 33.6 RDW 14.6 RDW Differential 46.6 H Plt Count 291 MPV 10.8 Sodium 137 Potassium 3.9 Chloride 104 Carbon Dioxide 26.0 Anion Gap 7 BUN 10 Creatinine 0.62 L Estim Creat Clear Calc 143.63 Est GFR (MDRD) Af Amer 170 Est GFR (MDRD) Non-Af 141 BUN/Creatinine Ratio 16.2 Glucose 242 H Calcium 9.3 POC Glucose 12/09/17 12/09/17 12/09/17 15:50 11:02 07:55 POC Glucose 298 H 286 H 251 H 12/08/17 12/08/17 20:57 16:49 POC Glucose 279 H 250 H Medical Necessity - Tobacco Use Smoking Status: Former smoker Tobacco Use: Non-smoker Assessment/Plan Active and Suspected Problems Pneumonia (Acute) #1 acute encephalopathy secondary to metabolic reasons-left lower lobe pneumonia and hypoxia-continue present oral antibiotics #2 left lower lobe pneumonia-healthcare acquired - continue patient on oral Levaquin #3 type 2 diabetes-continue current blood sugar coverage and insulin dosage #4 possible normal pressure hydrocephalus-I do not feel this has anything to do with the patient's confusion presently #5 osteogenesis imperfecta #6 chronic pain syndrome secondary to past history of vertebral fracture and right leg fracture-patient is currently on Vicodin as needed #7 hypertension #8 debility-continue PT and OT, patient will need temporary placement in a long-term facility Code Visit Inpatient E&M: 49039 Subs Hosp L2
[2017-12-09] MEDS: Sertraline 50 MG Tablet PO (21:38)
[2017-12-09 21:50] LABS: Bedside Glucose 273 mg/dL (70-110)
[2017-12-10] VITALS (8 sets, daily range): BP systolic 120–140; BP diastolic 76–83; PULSE 61–86; RESP 16–18; TEMP 36.3–37.1; O2SAT 94–98
[2017-12-10] MEDS: Ipratropium/Albuterol Sulfate 3 ML AMPUL.NEB INHALATION ×4 (01:15→18:59)
[2017-12-10] MEDS: levoFLOXacin 500 MG Tablet PO (06:07)
[2017-12-10 08:11] LABS: Bedside Glucose 263 mg/dL (70-110)
--- NOTE | 2017-12-10 08:20 | CASEMGMT ---
Social Work Note VM from Ingrid at [facility] stating that they cannot accept the pt at this time as she anticipates they will need long-term placement and she does not have the availability for that. Updated SW following today, MEDINA Sarah. Plan: SNF pending acceptance and pre-cert. Yisel Patel, ACCOUNTING POLICY CONSULTANT, SCROLL ASSEMBLER
[2017-12-10] MEDS: Ascorbic Acid 500 MG Tablet 1000 MG PO ×2 (08:43→16:26)
[2017-12-10] MEDS: Fenofibrate 145 MG Tablet PO (08:53)
[2017-12-10] MEDS: Docusate Sodium 100 MG Capsule PO ×2 (08:53→21:00)
[2017-12-10] MEDS: Famotidine 20 MG Tablet PO ×2 (08:54→21:00)
[2017-12-10] MEDS: guaiFENesin 1,200 MG Tablet 1200 MG PO ×2 (08:54→21:00)
[2017-12-10] MEDS: Senna/Docusate Sodium 1 Tablet 2 TABLET PO (08:54)
[2017-12-10] MEDS: Enoxaparin 40 MG/0.4 ML Syringe SC (08:54)
--- NOTE | 2017-12-10 09:32 | CASEMGMT ---
Addendum entered by Lorri Alvarado 12/11/17 13:34: SW did complete PAS/RR, will send it with the results that were also attained to [facility] when pt is discharged. MEDINA Sheppard, RECEPTION INTERVIEWER Original Note: Addendum entered by Lorri Alvarado 12/11/17 13:00: SW received a call from pt's insurance asking for our fax number, number given. They are not saying as of now if they will approve pt or not. SW spoke w/ in the hallway, let her know that we are still waiting for insurance to give an answer, and pt may be denied. SW let know if pt is denied we can likely still send pt to the SNF under Medicaid. states to let her know if that happens, she will change his insurance back from [employer] to regular Medicare, SW explained that though pt may be able to switch from [employer] to straight Medicare, it needs to be during certain enrollment periods and not just any time during the year. states to let her know, she may end up taking pt home. SW will continue to follow. MEDINA Sheppard, RECEPTION INTERVIEWER Original Note: Addendum entered by Lorri Alvarado 12/10/17 13:33: [facility] can take pt and will start precert. Michaela requested PAS/RR to be completed, SW will do so at discharge, it was started. KATHERYN called , let her know pt can go to [facility] at discharge, we will try for precert w/[employer] first and if [employer] will not authorize, will send him under Medicaid. states understanding, SW will follow up tomorrow. MEDINA Sheppard, RECEPTION INTERVIEWER Original Note: Addendum entered by Lorri Alvarado 12/10/17 12:23: SW called [facility], message left for Michaela inquiring if they can take pt. MEDINA Sheppard, RECEPTION INTERVIEWER Original Note: KATHERYN called [facility], they do not have any male beds. SW called [facility], they have beds, referral faxed. MEDINA Sheppard, RECEPTION INTERVIEWER
[2017-12-10 11:11] LABS: Bedside Glucose 285 mg/dL (70-110)
--- NOTE | 2017-12-10 15:40 | PCM.PROGNOTE ---
Patient Problems: Active and Suspected Problems Pneumonia (Acute) Subjective: Patient was seen and examined today, he remains alert and responds appropriately to most questions, he denies any shortness of breath or chills. - Physical Exam General: Alert, Oriented x3, Cooperative, No apparent distress, Well developed HEENT: Atraumatic, PERRLA, EOMI, Normocephalic Oral: Moist Mucosa Neck: Supple, No JVD, No Nuchal Rigidity, Trachea Midline, Thyroid Normal Size and Texture Lungs: Clear to auscultation, Normal air movement, No rhonchi, No wheeze, No rales Cardiovascular: Regular rate, Regular Rhythm, Normal S1, Normal S2, No murmurs, No Ectopic Activity, PMI Normal, No rub noted, No Gallop Abdomen: Bowel Sounds Present, Soft, Non Tender, Non-Distended, No hernias noted Extremities: No clubbing, No cyanosis, No edema, Capillary Refill Less than 3 Seconds Skin: No rashes, No breakdown Musculoskeletal: No Tenderness to Palpation of Joints or Extremities Neurological: Cranial nerves II-XII grossly intact, Neuro grossly intact, Sensory exam intact to light touch and pain, Coordination normal Psych/Mental Status: Normal Affect, Appropriate, Alert and oriented to time, place, person, mood and affect Vital Signs Temp Pulse Resp BP Pulse Ox 97.4 F L 86 16 120/83 H 94 12/10/17 08:30 12/10/17 13:13 12/10/17 13:13 12/10/17 08:30 12/10/17 08:30 Oxygen Flow Rate (L/min) 2 Oxygen Delivery Method Room Air Weight: 103 kg Body Mass Index (BMI) 29.1 Intake and Output for Last 24 Hours 12/08/17 12/09/17 12/10/17 23:59 23:59 23:59 Intake Total 1549 / 1549 2100 / 2100 850 / 850 Output Total 1425 / 1425 900 / 900 300 / 300 Balance 124 / 124 1200 / 1200 550 / 550 POC Glucose 12/10/17 12/10/17 12/09/17 10:55 08:04 21:37 POC Glucose 285 H 263 H 273 H 12/09/17 15:50 POC Glucose 298 H Medical Necessity - Tobacco Use Smoking Status: Former smoker Tobacco Use: Non-smoker Assessment/Plan Active and Suspected Problems Pneumonia (Acute) #1 acute encephalopathy secondary to metabolic reasons-left lower lobe pneumonia and hypoxia-appears to be clearing at this time #2 left lower lobe pneumonia-healthcare acquired - continue patient on oral Levaquin #3 type 2 diabetes-continue current blood sugar coverage and insulin dosage #4 possible normal pressure hydrocephalus-I do not feel this has anything to do with the patient's confusion presently #5 osteogenesis imperfecta #6 chronic pain syndrome secondary to past history of vertebral fracture and right leg fracture-patient is currently on Vicodin as needed #7 hypertension #8 debility-continue PT and OT, patient will need temporary placement in a long-term facility Code Visit Inpatient E&M: 34108 Subs Hosp L1
[2017-12-10 16:41] LABS: Bedside Glucose 292 mg/dL (70-110)
[2017-12-10] MEDS: Sertraline 50 MG Tablet PO (20:59)
[2017-12-10] MEDS: Mag Hydrox/Al Hydrox/Simeth 30 ML UDC PO (21:00)
[2017-12-10 21:10] LABS: Bedside Glucose 349 mg/dL (70-110)
[2017-12-11] VITALS (8 sets, daily range): BP systolic 114–139; BP diastolic 75–86; PULSE 68–84; RESP 16–20; TEMP 36.4–36.9; O2SAT 95–98
[2017-12-11] MEDS: Ipratropium/Albuterol Sulfate 3 ML AMPUL.NEB INHALATION ×4 (01:27→19:16)
[2017-12-11] MEDS: levoFLOXacin 500 MG Tablet PO (05:40)
[2017-12-11] MEDS: Ascorbic Acid 500 MG Tablet 1000 MG PO ×2 (07:34→15:53)
[2017-12-11] MEDS: Docusate Sodium 100 MG Capsule PO ×2 (07:44→21:27)
[2017-12-11] MEDS: Famotidine 20 MG Tablet PO ×2 (07:44→21:27)
[2017-12-11] MEDS: Enoxaparin 40 MG/0.4 ML Syringe SC (07:44)
[2017-12-11] MEDS: guaiFENesin 1,200 MG Tablet 1200 MG PO ×2 (07:44→21:27)
[2017-12-11] MEDS: Fenofibrate 145 MG Tablet PO (07:44)
[2017-12-11 08:00] LABS: Bedside Glucose 304 mg/dL (70-110)
[2017-12-11 11:21] LABS: Bedside Glucose 277 mg/dL (70-110)
[2017-12-11 16:06] LABS: Bedside Glucose 358 mg/dL (70-110)
--- NOTE | 2017-12-11 16:29 | CASEMGMT ---
KATHERYN received a call from [facility] that pt was denied by [facility] for SNF placement. SW let pt and know, would like pt to go under his Medicaid--so a level of care will be needed. SW texted physician and requested the transfer to extended care be completed so SW can send for the level of care in the morning. KATHERYN did also confirm w/Michaela at [facility] that they can take pt under his Medicaid. KATHERYN will follow up tomorrow. MEDINA Sheppard, PLUNKET NURSE
--- NOTE | 2017-12-11 17:37 | PCM.PROGNOTE ---
Patient Problems: Active and Suspected Problems Pneumonia (Acute) Subjective: Patient was seen and examined today, he remains alert and appropriate to this examiner most of the time. - Physical Exam General: Alert, Oriented x3, Cooperative, No apparent distress, Well developed HEENT: Atraumatic, PERRLA, EOMI, Normocephalic Oral: Moist Mucosa Neck: Supple, No JVD, No Nuchal Rigidity, Trachea Midline, Thyroid Normal Size and Texture Lungs: Clear to auscultation, Normal air movement, No rhonchi, No wheeze, No rales Cardiovascular: Regular rate, Regular Rhythm, Normal S1, Normal S2, No murmurs, No Ectopic Activity, PMI Normal, No rub noted, No Gallop Abdomen: Bowel Sounds Present, Soft, Non Tender, Non-Distended, No hernias noted Extremities: No clubbing, No cyanosis, No edema, Capillary Refill Less than 3 Seconds Skin: No rashes, No breakdown Musculoskeletal: No Tenderness to Palpation of Joints or Extremities Neurological: Cranial nerves II-XII grossly intact, Neuro grossly intact, Sensory exam intact to light touch and pain, Coordination normal Psych/Mental Status: Normal Affect, Appropriate, Alert and oriented to time, place, person, mood and affect Vital Signs Temp Pulse Resp BP Pulse Ox 97.8 F 78 18 139/85 H 98 12/11/17 14:30 12/11/17 14:30 12/11/17 14:30 12/11/17 14:30 12/11/17 14:30 Oxygen Flow Rate (L/min) 2 Oxygen Delivery Method Room Air Weight: 103 kg Body Mass Index (BMI) 29.1 Intake and Output for Last 24 Hours 12/09/17 12/10/17 12/11/17 23:59 23:59 23:59 Intake Total 2100 / 2100 850 / 850 550 / 550 Output Total 900 / 900 300 / 300 375 / 375 Balance 1200 / 1200 550 / 550 175 / 175 POC Glucose 12/11/17 12/11/17 12/11/17 15:51 11:11 07:29 POC Glucose 358 H 277 H 304 H 12/10/17 20:57 POC Glucose 349 H Medical Necessity - Tobacco Use Smoking Status: Former smoker Tobacco Use: Non-smoker Assessment/Plan Active and Suspected Problems Pneumonia (Acute) #1 acute encephalopathy secondary to metabolic reasons-left lower lobe pneumonia and hypoxia-appears to be clearing at this time, no changes on medical care at this time #2 left lower lobe pneumonia-healthcare acquired - continue patient on oral Levaquin #3 type 2 diabetes-continue current blood sugar coverage and insulin dosage #4 possible normal pressure hydrocephalus-I do not feel this has anything to do with the patient's confusion presently #5 osteogenesis imperfecta #6 chronic pain syndrome secondary to past history of vertebral fracture and right leg fracture-patient is currently on Vicodin as needed #7 hypertension #8 debility-continue PT and OT, patient will need temporary placement in a long term facility, patient was refused by his main insurance carrier, he will go to a long term facility under Medicaid if possible Code Visit Inpatient E&M: 48052 Subs Hosp L2
[2017-12-11] MEDS: Sertraline 50 MG Tablet PO (21:27)
[2017-12-11 21:36] LABS: Bedside Glucose 322 mg/dL (70-110)
[2017-12-12 01:05] VITALS: PULSE 81; RESP 18
[2017-12-12] MEDS: Ipratropium/Albuterol Sulfate 3 ML AMPUL.NEB INHALATION ×3 (01:05→13:47)
[2017-12-12 03:00] VITALS: BP 127/77; PULSE 74; RESP 18; TEMP 37; O2SAT 94
[2017-12-12] MEDS: levoFLOXacin 500 MG Tablet PO (05:18)
[2017-12-12 06:48] VITALS: PULSE 78; RESP 18; O2SAT 94
[2017-12-12] MEDS: Ascorbic Acid 500 MG Tablet 1000 MG PO ×2 (07:40→15:59)
[2017-12-12 07:45] LABS: Bedside Glucose 297 mg/dL (70-110)
--- NOTE | 2017-12-12 09:01 | PCM.TXEXTCAR ---
- Diet 12/05/17 21:01 Diet: Calorie Controlled Type of Dietary Supplement:: Glucerna Shake How many daily calories?: 1800 calorie - Routine Orders/Code Status Routine Lab Work: - - FINGERSTICK BLOOD SUGARS ACQHS-COVER WITH SLIDING SCALE INSULIN NOVOLOG SQ: 200-250:5 UNITS, 251-300: 8 UNITS, 301-350:12 UNITS, 351-400: 15 UNITS - Wound(s) bilateral toes Wound Type: Abrasion - Therapies Physical Therapy: Eval and Treat Occupational Therapy: Eval and Treat - Problem/Diagnosis (1) Anxiety and depression Status: Chronic Current Visit: Yes (2) Encephalopathy Status: Acute Comment: SECONDARY TO PNEUMONIA Current Visit: No (3) Type II diabetes mellitus Status: Chronic Current Visit: No (4) Chronic back pain Status: Chronic Current Visit: No (5) Osteogenesis imperfecta Status: Chronic Current Visit: No - Allergies/Procedures Done in Hospital Allergies/Adverse Reactions: Allergies fentanyl Adverse Reaction (Verified 12/05/17 18:26) lethargic, unresponsive, hallucinations morphine Adverse Reaction (Verified 12/05/17 18:26) lethargic, unresponsive, hallucinations IVP DYE Allergy (Uncoded 12/05/17 18:26) Anaphylaxis Procedures: None - Type of Care/Length of Stay Estimated LOS: Convalescent Care Less Than 30 days Type of Care Needed: Skilled Rehab Potential: Good Prognosis: Good - Additional Orders/Day of Discharge H&P will serve as current which was dated: 12/05/17 Day of Discharge: 12/12/17 - Follow Up Care Primary Care Physician: Janay Cope NP-C [Primary Care Provider] -
--- NOTE | 2017-12-12 09:07 | TREXTCAR_ITS ---
- Diet 12/05/17 21:01 Diet: Calorie Controlled Type of Dietary Supplement:: Glucerna Shake How many daily calories?: 1800 calorie - Routine Orders/Code Status Routine Lab Work: - - FINGERSTICK BLOOD SUGARS ACQHS-COVER WITH SLIDING SCALE INSULIN NOVOLOG SQ: 200-250:5 UNITS, 251-300: 8 UNITS, 301-350:12 UNITS, 351-400 : 15 UNITS - Wound(s) bilateral toes Wound Type: Abrasion - Therapies Physical Therapy: Eval and Treat Occupational Therapy: Eval and Treat - Problem/Diagnosis (1) Anxiety and depression Status: Chronic Current Visit: Yes (2) Encephalopathy Status: Acute Comment: SECONDARY TO PNEUMONIA Current Visit: No (3) Type II diabetes mellitus Status: Chronic Current Visit: No (4) Chronic back pain Status: Chronic Current Visit: No (5) Osteogenesis imperfecta Status: Chronic Current Visit: No - Allergies/Procedures Done in Hospital Allergies/Adverse Reactions: Allergies fentanyl Adverse Reaction (Verified 12/05/17 18:26) lethargic, unresponsive, hallucinations morphine Adverse Reaction (Verified 12/05/17 18:26) lethargic, unresponsive, hallucinations IVP DYE Allergy (Uncoded 12/05/17 18:26) Anaphylaxis Procedures: None - Type of Care/Length of Stay Estimated LOS: Convalescent Care Less Than 30 days Type of Care Needed: Skilled Rehab Potential: Good Prognosis: Good - Additional Orders/Day of Discharge H&P will serve as current which was dated: 12/05/17 Day of Discharge: 12/12/17 - Follow Up Care Primary Care Physician: Janay Cope NP-C [Primary Care Provider] -
[2017-12-12] MEDS: Famotidine 20 MG Tablet PO (09:27)
[2017-12-12] MEDS: Senna/Docusate Sodium 1 Tablet 2 TABLET PO (09:27)
[2017-12-12] MEDS: Enoxaparin 40 MG/0.4 ML Syringe SC (09:27)
[2017-12-12] MEDS: guaiFENesin 1,200 MG Tablet 1200 MG PO (09:27)
[2017-12-12] MEDS: Docusate Sodium 100 MG Capsule PO (09:27)
[2017-12-12] MEDS: Fenofibrate 145 MG Tablet PO (09:27)
--- NOTE | 2017-12-12 09:43 | CASEMGMT ---
Social Work Level of Care submitted to the [facility] for admission to nursing facility. Will await determination prior to discharge to facility. EDD Cobian
[2017-12-12 10:00] VITALS: BP 132/74; PULSE 74; RESP 18; TEMP 36.8; O2SAT 98
[2017-12-12 11:16] LABS: Bedside Glucose 342 mg/dL (70-110)
[2017-12-12 13:47] VITALS: PULSE 80; RESP 18
--- NOTE | 2017-12-12 14:11 | CPS ---
Using PEP on own
--- NOTE | 2017-12-12 15:34 | CASEMGMT ---
Social Work LOC received. Physician notified and discharge planned for today. Met with pt and in room and informed that d/c will be today. PT and are agreeable to d/c to [facility] today. No preference on transportation used. Orders faxed to Michaela at [facility] and pt, RN and [facility] notified. No further d/c needs. EDD Cobian
[2017-12-12 16:05] LABS: Bedside Glucose 326 mg/dL (70-110)
--- NOTE | 2017-12-14 11:12 | PCM.DC.SUM ---
Discharge Date and Diagnosis Date of Admission: 12/05/17 Date of Discharge: 12/12/17 - Primary Discharge Diagnosis #1 acute sepsis secondary to healthcare acquired left lower lobe pneumonia-suspected to be secondary to gram-negative bacteria #2 acute left lower lobe ammonia-suspected to be secondary to gram-negative bacteria-healthcare acquired #3 metabolic encephalopathy secondary to acute sepsis #4 hypoxia secondary to healthcare acquired left lower lobe pneumonia #5 osteogenesis imperfecta #6 hypertension #7 type 2 diabetes #8 chronic pain syndrome secondary to past history of vertebral fracture and right leg fracture - Secondary Discharge Diagnosis Chronic Problems Anxiety and depression (Chronic) HTN (hypertension) (Chronic) GERD (gastroesophageal reflux disease) (Chronic) Low back pain (Chronic) Type II diabetes mellitus (Chronic) Chronic back pain (Chronic) Osteogenesis imperfecta (Chronic) Hospital Course and Treatment Operations: None, - - Right hip arthroplasty Procedures: None Summary of Care Provided: The patient is a 62 year old M who was seen in the emergency room at [facility] with a chief complaint of fever and mental status change, he had been recently discharged from the hospital for previous mental status change. He was lethargic at home was brought back for evaluation. Chest x-ray revealed a left lower lobe infiltrate, EKG showed sinus tachycardia with PACs, his white count was elevated, lactic acid was normal, he met criteria for acute sepsis. Patient was admitted to [place] [address], treated with IV antibiotics for healthcare acquired gram-negative pneumonia, cultures obtained during his hospitalization were negative, urine culture was positive for a staph organism but this was felt to be a contaminant. Over the next several days, patient's mental status improved, he was seen by PT and OT, and it was felt that he would benefit from short-term placement in a [facility] facility. On 12/12/17, patient was seen and examined felt in stable condition for transfer to penitentiary facility for further half-way Medications: Medications to take at Discharge Ascorbic Acid [Vitamin C] 1,000 mg PO BIDCM 06/17/15 Calcium Carbonate [Calcium] 600 mg PO BID #0 08/29/15 Cholecalciferol (Vitamin D3) [Vitamin D3] 1 capsule PO DAILY 05/28/16 Cyanocobalamin (Vitamin B-12) [Vitamin B-12] 2,500 mcg PO DAILY 12/01/17 Docusate Sodium [Colace] 100 mg PO BID 12/01/17 Folic Acid 0.8 mg PO DAILY@0800 12/01/17 Omeprazole [Prilosec] 20 mg PO DAILY 12/01/17 Senna/Docusate Sodium [Senokot-S] 2 tablet PO MOWEFR 12/01/17 Sertraline HCl [Zoloft] 50 mg PO QHS 12/01/17 Cyclobenzaprine [Flexeril] 5 mg PO TID PRN PRN #20 tab 12/02/17 Fenofibrate [Tricor] 145 mg PO DAILY #30 tab 12/02/17 Acetaminophen [Tylenol Tablet] 650 mg PO Q6H PRN PRN tablet 12/12/17 Hydrocodone Bitart/Apap 5-325 [[place] 5/325] 1 - 2 tab PO Q6H PRN PRN 7 Days #40 tab 12/12/17 Insulin Aspart [Novolog Flexpen] 10 units SC TIDAC #1 flexpen 12/12/17 Insulin Detemir [Levemir ([facility])] 15 units SC BID #1 flexpen 12/12/17 levoFLOXacin tablet [Levaquin tablet] 500 mg PO DAILY@0600 tablet 12/12/17 Following Prescrptions Were Given to Patient: Hydrocodone Bitart/Apap 5-325 [[place] 5/325] 1 - 2 tab PO Q6H PRN PRN 7 Days #40 tab PRN Reason: Pain Insulin Aspart [Novolog Flexpen] 10 units SC TIDAC #1 flexpen Insulin Detemir [Levemir (BKC)] 15 units SC BID #1 flexpen Primary Care Physician: Janay Cope NP-C [Primary Care Provider] - Disposition: Longterm facility Minutes spent on discharge:: 36 Patient Condition:: Stable Medical Necessity - Tobacco Use Smoking Status: Former smoker Tobacco Use: Non-smoker Meaningful Use Info Meaningful Use Diagnoses (Choose all that apply): None applicable Code Visit Inpatient E&M: 08149 Disch Hosp
--- NOTE | 2017-12-14 11:18 | DS.PCM_ITS ---
Discharge Date and Diagnosis Date of Admission: 12/05/17 Date of Discharge: 12/12/17 - Primary Discharge Diagnosis #1 acute sepsis secondary to healthcare acquired left lower lobe pneumonia- suspected to be secondary to gram-negative bacteria #2 acute left lower lobe ammonia-suspected to be secondary to gram-negative bacteria-healthcare acquired #3 metabolic encephalopathy secondary to acute sepsis #4 hypoxia secondary to healthcare acquired left lower lobe pneumonia #5 osteogenesis imperfecta #6 hypertension #7 type 2 diabetes #8 chronic pain syndrome secondary to past history of vertebral fracture and right leg fracture - Secondary Discharge Diagnosis Chronic Problems Anxiety and depression (Chronic) HTN (hypertension) (Chronic) GERD (gastroesophageal reflux disease) (Chronic) Low back pain (Chronic) Type II diabetes mellitus (Chronic) Chronic back pain (Chronic) Osteogenesis imperfecta (Chronic) Hospital Course and Treatment Operations: None, - - Right hip arthroplasty Procedures: None Summary of Care Provided: The patient is a 62 year old M who was seen in the emergency room at [facility] with a chief complaint of fever and mental status change, he had been recently discharged from the hospital for previous mental status change. He was lethargic at home was brought back for evaluation. Chest x-ray revealed a left lower lobe infiltrate, EKG showed sinus tachycardia with PACs, his white count was elevated, lactic acid was normal, he met criteria for acute sepsis. Patient was admitted to [place] [address], treated with IV antibiotics for healthcare acquired gram-negative pneumonia, cultures obtained during his hospitalization were negative, urine culture was positive for a staph organism but this was felt to be a contaminant. Over the next several days, patient's mental status improved, he was seen by PT and OT, and it was felt that he would benefit from short-term placement in a [facility] facility. On 12/12/17, patient was seen and examined felt in stable condition for transfer to [facility] facility for further [facility] Medications: Medications to take at Discharge Ascorbic Acid [Vitamin C] 1,000 mg PO BIDCM 06/17/15 Calcium Carbonate [Calcium] 600 mg PO BID #0 08/29/15 Cholecalciferol (Vitamin D3) [Vitamin D3] 1 capsule PO DAILY 05/28/16 Cyanocobalamin (Vitamin B-12) [Vitamin B-12] 2,500 mcg PO DAILY 12/01/17 Docusate Sodium [Colace] 100 mg PO BID 12/01/17 Folic Acid 0.8 mg PO DAILY@0800 12/01/17 Omeprazole [Prilosec] 20 mg PO DAILY 12/01/17 Senna/Docusate Sodium [Senokot-S] 2 tablet PO MOWEFR 12/01/17 Sertraline HCl [Zoloft] 50 mg PO QHS 12/01/17 Cyclobenzaprine [Flexeril] 5 mg PO TID PRN PRN #20 tab 12/02/17 Fenofibrate [Tricor] 145 mg PO DAILY #30 tab 12/02/17 Acetaminophen [Tylenol Tablet] 650 mg PO Q6H PRN PRN tablet 12/12/17 Hydrocodone Bitart/Apap 5-325 [[place] 5/325] 1 - 2 tab PO Q6H PRN PRN 7 Days #40 tab 12/12/17 Insulin Aspart [Novolog Flexpen] 10 units SC TIDAC #1 flexpen 12/12/17 Insulin Detemir [Levemir (BKC)] 15 units SC BID #1 flexpen 12/12/17 levoFLOXacin tablet [Levaquin tablet] 500 mg PO DAILY@0600 tablet 12/12/17 Following Prescrptions Were Given to Patient: Hydrocodone Bitart/Apap 5-325 [[place] 5/325] 1 - 2 tab PO Q6H PRN PRN 7 Days #40 tab PRN Reason: Pain Insulin Aspart [Novolog Flexpen] 10 units SC TIDAC #1 flexpen Insulin Detemir [Levemir (BKC)] 15 units SC BID #1 flexpen Primary Care Physician: Janay Cope NP-C [Primary Care Provider] - Disposition: Long-Term facility Minutes spent on discharge:: 36 Patient Condition:: Stable Medical Necessity - Tobacco Use Smoking Status: Former smoker Tobacco Use: Non-smoker Meaningful Use Info Meaningful Use Diagnoses (Choose all that apply): None applicable Code Visit Inpatient E&M: 18653 Disch Hosp
== END 2017-12-12 17:56 | disposition skilled nursing facility (03) | DRG 871 ==
LOC: ED 21:04 → MS2 21:11
PROVIDERS: Hospitalist; Admitting Provider Family Medicine; Emergency Provider Emergency Medicine; Family Provider Nurse Practitioner Family; PCP Nurse Practitioner Family; Visit Provider Internal Medicine
DX: A41.9 Sepsis, unspecified organism (principal); J15.6 Pneumonia due to other Gram-negative bacteria; J96.01 Acute respiratory failure with hypoxia; G93.41 Metabolic encephalopathy; Q78.0 Osteogenesis imperfecta; R09.02 Hypoxemia; I10 Essential (primary) hypertension; E11.9 Type 2 diabetes mellitus without complications; Y95 Nosocomial condition; G89.4 Chronic pain syndrome; F41.9 Anxiety disorder, unspecified; F32.9 Major depressive disorder, single episode, unspecified; K21.9 Gastro-esophageal reflux disease without esophagitis; Z79.4 Long term (current) use of insulin; Z87.891 Personal history of nicotine dependence; E78.5 Hyperlipidemia, unspecified; Z86.718 Personal history of other venous thrombosis and embolism; Z99.3 Dependence on wheelchair; Z87.81 Personal history of (healed) traumatic fracture; M54.9 Dorsalgia, unspecified; Z23 Encounter for immunization; H91.90 Unspecified hearing loss, unspecified ear; R29.810 Facial weakness; G93.0 Cerebral cysts; M54.5 Low back pain; Z79.899 Other long term (current) drug therapy; Z79.01 Long term (current) use of anticoagulants
CPT/HCPCS: 36415; 70450; 70551; 71045; 71046; 80048; 80053; 80076; 80307; 81001; 82140; 82607; 82746; 82962; 83605; 83735; 84484; 85025; 85027; 85610; 85730; 86592; 87040; 87077; 87086; 87088; 87186; 87449; 93005; 94640; 94667; 94668; 96372; 97110; 97162; 97163; 97166; 97168; 97530; 97535; 97802; 99218; 99285; J7030; J7050; P9612; 90686; A4216; G0378

== ENCOUNTER → 2018-04-27 17:57 | Outpatient (CLI) | payer MEDICARE, MEDICAID, SELFPAY ==
--- NOTE | 2018-04-27 18:09 | RAD_ITS ---
STUDY: X-RAY - LUMBAR SPINE REASON FOR EXAM: Male, 62 years old. back pain TECHNIQUE: 3 view(s) of the lumbar spine were obtained. COMPARISON: CT June 17, 2015 FINDINGS: There is an exaggerated lumbar lordosis. There is no substantial scoliosis. There is a normal alignment of the vertebrae. Again seen is T12 vertebroplasty. Again seen is severe loss of disc height at L5-S1. There is new multilevel loss of disc height. There is a L3 compression fracture of indeterminate age, new since the prior exam. The soft tissue structures are unremarkable. RAD/Lumbar Spine 2 or 3 Views IMPRESSION: There is a L3 compression fracture of indeterminate age, new since the prior exam. There is new multilevel loss of disc height. Electronically Signed: Keshia Baeza MD at 14:17 EDT , Service support ,
--- NOTE | 2018-04-27 18:10 | RAD_ITS ---
STUDY: X-RAY - CERVICAL SPINE REASON FOR EXAM: Male, 62 years old. Pain TECHNIQUE: 5 view(s) of the cervical spine were obtained. COMPARISON: CT May 28, 2016 report only FINDINGS: Normal anterior atlantoaxial articulation. Normal odontoid process. Normal cervical lordosis. There is diffuse demineralization of the cervical spine. There are mild C4-5 osteophyte. There is multi-level degenerative disc disease with multilevel disc space narrowing. There is facet arthropathy. The soft tissue structures are unremarkable. RAD/Cerv Spine 2 or 3 Views IMPRESSION: Again seen are degenerative changes. There is osteopenia. Electronically Signed: Keshia Baeza MD at 14:04 EDT , Service support ,
--- NOTE | 2018-04-27 18:12 | RAD_ITS ---
STUDY: X-RAY - PELVIS AND BILATERAL HIPS REASON FOR EXAM: Male, 62 years old. Back and hip pain. TECHNIQUE: Radiological exam, hip, bilateral, with pelvis when performed; 3-4 views COMPARISON: Right hip, May 29, 2015. FINDINGS: There is a non-specific bowel gas pattern. Normal visualized soft tissue structures. There is asymmetry of the iliac wings which appears stable when compared to the prior study. There appeared to be old healed fractures of the right superior and inferior pubic rami. Normal left superior and inferior pubic rami. Normal pubic symphysis. Normal bilateral ischial tuberosities. There is a medullary shell in the proximal femoral shaft. There arterial transfixing cortical nails extending in the femoral head and neck. The intratrochanteric fracture seen on the prior study has now healed. The femoral head remains in normal alignment with the acetabulum. There is osteoarthritic spur formation of the right acetabular rim. There is moderate articular joint space narrowing of the right hip. Normal visualized left femoral head. Normal left acetabulum. There is moderate articular joint space narrowing of the left hip. RAD/Hips B/L min 2 views w/ Pelvis IMPRESSION: 1. Remote healed intertrochanteric fracture of the right hip with evidence of internal fixation. 2. Stable moderate degenerative changes bilateral hips. 3. Healed fractures of the right superior and inferior pubic rami. Electronically Signed: Aime Jones DO at 18:53 EDT Tel [phone], Service support ,
== END ==
PROVIDERS: Family Provider Nurse Practitioner Family; PCP Nurse Practitioner Family; Visit Provider Anesthesiology Pain Medicine
DX: M54.2 Cervicalgia (principal); M54.9 Dorsalgia, unspecified; M25.552 Pain in left hip; M25.551 Pain in right hip
CPT/HCPCS: 72040; 72100; 73521

== ENCOUNTER 2018-07-06 10:12 | Day surgery (SDC) | payer MEDICARE, MEDICAID, SELFPAY ==
[2018-07-06 11:06] VITALS: BP 132/78; PULSE 75; RESP 18; TEMP 36.6; O2SAT 98; BMI 29.0
--- NOTE | 2018-07-06 11:20 | RAD_ITS ---
STUDY: X-RAY - PELVIS AND RIGHT HIP REASON FOR EXAM: Male, 62 years old. Right hip injection TECHNIQUE: Radiological exam, hip, unilateral, with pelvis when performed; 1 view COMPARISON: None. FINDINGS: 3 spot fluoroscopy views of the right hip demonstrate intra-articular injection. Postsurgical changes. RAD/Fluoro Guided Needle Placement IMPRESSION: As above. Please see performing physician's report for full details. Electronically Signed: Diaz Isabel DO at 10:19 EDT Tel , Service support ,
[2018-07-06 11:30] LABS: Bedside Glucose 207 mg/dL (70-110)
[2018-07-06] MEDS: MethylPREDNISolone Acetate 80 MG/ML Vial (11:47)
[2018-07-06] MEDS: Bupivacaine 0.5% PF 10 ML VIAL (11:47)
[2018-07-06 12:03] VITALS: BP 132/78; BP 135/83; PULSE 74; RESP 16; TEMP 35.9; O2SAT 97
[2018-07-06 12:08] VITALS: BP 127/82; BP 132/78; PULSE 75; RESP 16; O2SAT 97
[2018-07-06 12:13] VITALS: BP 126/88; BP 132/78; PULSE 71; RESP 16; O2SAT 96
[2018-07-06 12:18] VITALS: BP 128/86; BP 132/78; PULSE 70; RESP 16; TEMP 35.9; O2SAT 97
[2018-07-06 12:55] VITALS: BP 132/78
--- NOTE | 2018-07-06 15:58 | PCM.OPRPT ---
Problem List (1) Unilateral primary osteoarthritis, right hip Status: Chronic Report of Operation Date of Procedure: 07/06/18 Pre-Operative Diagnosis: Osteoarthritis of the right hip Post-Operative Diagnosis: The arthritis of the right hip Surgery/Procedure Performed:: Right hip intra-articular steroid injection under fluoroscopic guidance Description of Surgical Findings:: PROCEDURE: Right hip intra-articular steroid injection under fluoroscopic guidance PREOPERATIVE DIAGNOSIS: Osteoarthritis of the right hip POSTOPERATIVE DIAGNOSIS: Osteoarthritis of the right hip ANESTHESIA: MAC COMPLICATIONS: None BLOOD LOSS: Minimal PROCEDURE IN DETAIL: History and physical today was reviewed. Risks and benefits of the procedure were explained. The patient understood, agreed to our procedure, and informed consent was obtained. IV inserted per routine protocol. The patient was taken to the operating room, placed in a supine position the right hip area was prepped and draped in a sterile fashion using iodine x3 under fluoroscopy guidance AP view the right hip was visualized the skin and subcutaneous tissue and size approximately 5 cc of 1% lidocaine at approximately 3 cm cephalad to the right greater trochanter under direct visualization with fluoroscopy on AP view using the lateral approach using a 5 inch 22-gauge spinal needle the needle passed through the skin the tip of the needle's maneuver and directed just towards the superiormost aspect of the hip joint once the tip of the needle was at the vicinity of the hip after negative aspiration for blood positive aspiration of synovial fluid a total of 1 cc of contrast was injected to confirm correct placement of the needle as well as halo spread around the hip joint after repeated negative aspiration and confirmation of AP as well as oblique view a total of 10 cc of preservative-free 0.25% Marcaine with 80 mg of Depo-Medrol were injected easily the needle was then removed intact patient experienced no signs or symptoms of intravascular injection patient experienced no paresthesia the procedure was completed without any apparent difficult, any complication. The patient appeared to tolerate well. ASSESSMENT AND PLAN: This is a 62-year-old male with osteoarthritis of the right hip status post right hip intra-articular steroid injection under fluoroscopic guidance. The patient will continue her current medications. The patient will follow in approximately 2 weeks for reevaluation
== END 2018-07-06 12:57 | disposition home or self-care (01) ==
PROVIDERS: Family Provider Nurse Practitioner Family; PCP Nurse Practitioner Family; Referring Provider Anesthesiology Pain Medicine; Visit Provider Anesthesiology Pain Medicine
PROC: 3E0U3GC Introduction of Other Therapeutic Substance into Joints, Percutaneous Approach (ICD-10-PCS; CPT 20610; principal; 2018-07-06 11:10)
DX: M16.11 Unilateral primary osteoarthritis, right hip (principal); M47.27 Other spondylosis with radiculopathy, lumbosacral region; M51.37 Other intervertebral disc degeneration, lumbosacral region; M54.12 Radiculopathy, cervical region; G89.29 Other chronic pain; Q78.0 Osteogenesis imperfecta; E11.9 Type 2 diabetes mellitus without complications; E78.5 Hyperlipidemia, unspecified; E55.9 Vitamin D deficiency, unspecified; E78.6 Lipoprotein deficiency; K21.9 Gastro-esophageal reflux disease without esophagitis; F32.9 Major depressive disorder, single episode, unspecified; F41.9 Anxiety disorder, unspecified; F17.220 Nicotine dependence, chewing tobacco, uncomplicated; Z79.84 Long term (current) use of oral hypoglycemic drugs; Z79.899 Other long term (current) drug therapy; Z86.718 Personal history of other venous thrombosis and embolism; Z85.819 Personal history of malignant neoplasm of unspecified site of lip, oral cavity, and pharynx
CPT/HCPCS: 20610; 76000; 77002; 82962; J7120; J3490

== ENCOUNTER 2018-09-07 10:03 | Day surgery (SDC) | payer MEDICARE, MEDICAID, SELFPAY ==
[2018-09-07] MEDS: MethylPREDNISolone Acetate 80 MG/ML Vial (10:42)
[2018-09-07] MEDS: Bupivacaine 0.25% 30 ML Vial (10:42)
[2018-09-07 10:46] VITALS: BP 150/86; PULSE 73; RESP 16; TEMP 36.5; O2SAT 97; BMI 29.6
[2018-09-07 10:51] LABS: Bedside Glucose 166 mg/dL (70-110)
--- NOTE | 2018-09-07 11:30 | RAD_ITS ---
PROCEDURE: Caudal block. DATE OF EXAMINATION: September 07, 2018. INDICATION: Male, 62 years old. Low back pain. FLUOROSCOPY TIME (if supplied): (0:09) minutes/seconds. Intraoperative imaging provided for caudal block. 2 images were obtained. The spinal needle is seen along the mid posterior aspect of the sacrum. RAD/Fluor Guidance for Spine Inj IMPRESSION: Intraoperative imaging provided for caudal block. Electronically Signed: Shayne Hester MD at 10:15 EST Tel [phone], Service support ,
[2018-09-07 11:42] VITALS: BP 146/87; BP 150/86; PULSE 78; RESP 18; TEMP 36.3; O2SAT 92
[2018-09-07 11:45] VITALS: BP 138/86; BP 150/86; PULSE 77; RESP 16; O2SAT 92
[2018-09-07 11:50] VITALS: BP 126/79; BP 150/86; PULSE 74; RESP 16; O2SAT 95
[2018-09-07 11:54] VITALS: BP 134/75; BP 150/86; PULSE 75; RESP 16; TEMP 36.3; O2SAT 95
[2018-09-07 12:30] VITALS: BP 150/86
--- NOTE | 2018-09-07 12:38 | OP.PCM_ITS ---
Problem List (1) Degeneration of intervertebral disc of lumbosacral region Status: Chronic (2) Radiculopathy of lumbosacral region Status: Chronic (3) Chronic back pain Status: Chronic Qualifiers: Report of Operation Date of Procedure: 09/07/18 Pre-Operative Diagnosis: Lumbosacral radiculopathy, lumbosacral degenerative disc disease Post-Operative Diagnosis: Lumbosacral radiculopathy, lumbosacral degenerative disc disease Surgery/Procedure Performed:: Diagnostic/therapeutic caudal epidural steroid i njection Description of Surgical Findings:: PROCEDURE: Diagnostic/therapeutic caudal epidural steroid injection PREOPERATIVE DIAGNOSIS: Lumbosacral radiculopathy, lumbosacral degenerative disc disease POSTOPERATIVE DIAGNOSIS: Lumbosacral radiculopathy, lumbosacral degenerative disc disease ANESTHESIA: MAC COMPLICATIONS: None BLOOD LOSS: Minimal PROCEDURE IN DETAIL: History and physical today was reviewed. Risks and benefits of the procedure were explained. The patient understood, agreed to our procedure, and informed consent was obtained. IV inserted per routine protocol. The patient was taken to the operating room, placed in a prone position with a pillow positioned underneath the abdomen. The lower back and tailbone area was prepped and draped in a sterile fashion using iodine ?3 under fluoroscopy guidance on the lateral view the caudal space was identified the skin and subcutaneous tissue and size approximately 3 cc of 1% lidocaine using a 25-gauge regular needle under direct visualization fluoroscopy using the lateral approach using a 22-gauge 3-1/2 inch spinal needle the needle was advanced via the skin through the sacral hiatus, tip of the needle passed through the sacrococcygeal ligament advanced approximately S4 area after negative aspiration for blood or CSF a total of 3 cc of contrast were injected to confirm correct placement of the needle as well as cephalad spread the spread was followed to approximately L5 area after confirmation AP as well as lateral view repeated negative aspiration a total of 15 cc of preservative-free 0.125% Marcaine with 80 mg of Depo-Medrol was injected easily. The needles were then removed intact. The patient experienced no signs or symptoms intrathecal, intravascular injection. The patient experienced no paraesthesia. The procedure was completed without any apparent difficult, any complication. The patient appeared to tolerate well. ASSESSMENT AND PLAN: This is a 62-year-old male with lumbosacral radiculopathy, lumbosacral degenerative disc disease status post diagnostic/therapeutic caudal epidural steroid injection. The patient will continue his current medications. The patient will follow in approximately 2 weeks for possible repeat of the procedure if indicated.
--- OUTSIDE RECORDS SUMMARY | 2018-12-09 22:37 | XMS RPT_ITS ---
:1955 Author Organization OHIP Support Name Relationship Address Phone D Unavailable Unavailable Unavailable RICHARD AYALANDY Unavailable [address] + [place] [address] D Unavailable Unavailable Unavailable SYEDA AYALAY Unavailable [address] + [place] [address] TORSTEN AYALA Unavailable [address] + [place] [address] RICHARD AYALANDY Unavailable [address] [place] [address] NOT GIVEN Unavailable Unavailable Unavailable D Unavailable Unavailable Unavailable LUCY, TORSTEN Unavailable [address] + [place] [address] RICHARD AYALANDY Unavailable [address] + [place] [address] TORSTEN AYALA Unavailable [address] [place] [address] NOT GIVEN Unavailable Unavailable Unavailable LUCY, TORSTEN Unavailable [address] + [place] [address] RICHARD AYALANDY Unavailable [address] [place] [address] NOT GIVEN Unavailable Unavailable Unavailable D Unavailable Unavailable Unavailable TORSTEN AYALA Unavailable [address] [phone] [place] [address] D Unavailable Unavailable Unavailable RICHARD AYALANDY Unavailable [address] [phone] [place] [address] D Unavailable Unavailable Unavailable RICHARD AYALANDY Unavailable [address] [phone]~330-2 [place] [address] D Unavailable Unavailable Unavailable SYEDA AYALAY Unavailable [address] [phone]~330-2 [place] [address] D Unavailable Unavailable Unavailable LUCY, TORSTEN Unavailable [address] [phone]~330-2 [place] [address] D Unavailable Unavailable Unavailable LUCY, TORSTEN Unavailable [address] [phone]~330-2 [place] [address] D Unavailable Unavailable Unavailable LUCY, TORSTEN Unavailable [address] [phone] [place] [address] D Unavailable Unavailable Unavailable LUCY, TORSTEN Unavailable [address] [phone]~330-2 [place] [address] D Unavailable Unavailable Unavailable LUCY, TORSTEN Unavailable [address] [phone]~330-2 [place] [address] D Unavailable Unavailable Unavailable LUCY, TORSTEN Unavailable [address] [phone]~330-2 [place] [address] D Unavailable Unavailable Unavailable LUCY, TORSTEN Unavailable [address] [phone]~330-2 [place] [address] D Unavailable Unavailable Unavailable LUCY, TORSTEN Unavailable [address] [phone]~330-2 [place] [address] D Unavailable Unavailable Unavailable LUCY, TORSTEN Unavailable [address] [phone]~330-2 [place] [address] Care Team Providers Name Role Phone ETHAN ESCAMILLA MD Admitting Unavailable ETHAN ESCAMILLA MD Attending Unavailable ETHAN ESCAMILLA MD Primary Care Unavailable PRISCA, JANAY Admitting Unavailable PRISCA, JANAY Attending Unavailable PRISCA, JANAY Primary Care Unavailable PRISCA, JANAY Admitting Unavailable PRISCA, JANAY Attending Unavailable PRISCA, JANAY Primary Care Unavailable Mimi, Jamal Admitting Unavailable NOT, DEFINED Primary Care Unavailable Rush Swain Consulting Unavailable Reece Smith Attending Unavailable Danilo Cerda Consulting Unavailable Mimi, Jamal Admitting Unavailable NOT, DEFINED Primary Care Unavailable Mimi, Jamal Consulting Unavailable Meme Donato Attending Unavailable Mimi, Jamal Admitting Unavailable Reece Smith Attending Unavailable Rush Swain Consulting Unavailable Prashant, Danilo Consulting Unavailable Luis, Reece Consulting Unavailable Prisca, Janay Primary Care Unavailable White, Meme Admitting Unavailable Tereletsky, Feroz Attending Unavailable White, Meme Admitting Unavailable White, Meme Attending Unavailable [place], Janay Primary Care Unavailable White, Meme Consulting Unavailable White, Meme Admitting Unavailable Prisca, Janay Primary Care Unavailable Imamura, Yoichi Consulting Unavailable Paintsil, [place] Attending Unavailable White, Meme Admitting Unavailable Prisca, Janay Primary Care Unavailable Imamura, Yoichi Consulting Unavailable Paintsil, [place] Attending Unavailable White, Meme Admitting Unavailable Tereletsky, Feroz Attending Unavailable Prisca, Janay Primary Care Unavailable Tereletsky, Feroz Consulting Unavailable White, Meme Admitting Unavailable Tereletsky, Feorz Attending Unavailable [place], Janay Primary Care Unavailable Tereletsky, Feroz Consulting Unavailable White, Meme Admitting Unavailable Tereletsky, Feroz Attending Unavailable Prisca, Janay Primary Care Unavailable Tereletsky, Feroz Consulting Unavailable White, Meme Admitting Unavailable Tereletsky, Feroz Attending Unavailable [place], Janay Primary Care Unavailable Tereletsky, Feroz Consulting Unavailable White, Meme Admitting Unavailable Tereletsky, Feroz Attending Unavailable Prisca, Janay Primary Care Unavailable Tereletsky, Feroz Consulting Unavailable White, Meme Admitting Unavailable Termarcoky, Feroz Attending Unavailable [place], Janay Primary Care Unavailable Tereletsky, Feroz Consulting Unavailable Derek Restrepo Attending Unavailable Derek Restrepo Referring Unavailable Prisca, Janay Primary Care Unavailable Derek Restrepo Attending Unavailable Prisca, Janay Primary Care Unavailable Derek Restrepo Referring Unavailable Derek Restrepo Attending Unavailable Derek Restrepo Referring Unavailable Prisca, Janay Primary Care Unavailable PROBLEMS PROBLEMS DATE TYPE CONDITION / CODE ATTENDING STATUS SOURCE 05/05/2018 Unknown M54.2 - Cervicalgia Brooke Restrepo Dul[place] / M54.2(ICD-10) [facility] Repository 12/18/2017 Admitting Encephalopathy, LATOUF, BUTROS Active Martin Pomerene Diagnosis unspecified / [facility] G9340(ICD-10) Hospital Repository 12/18/2017 Principle Encephalopathy, LATOUF, BUTROS Active [facility] Diagnosis unspecified / [facility] G9340(ICD-10) Hospital Repository 12/18/2017 Secondary Type 2 diabetes LATOUF, BUTROS Active [facility] Diagnosis mellitus with MD Caro unspecified Hospital complications / Repository E118(ICD-10) 12/18/2017 Secondary Lobar pneumonia, CANDISOUDevon, ETHAN Active [facility] Diagnosis unspecified [facility] organism / Hospital J181(ICD-10) Repository 12/18/2017 Secondary Sepsis, unspecified LATOUETHAN Osorio Active [facility] Diagnosis organism / [facility] A419(ICD-10) Hospital Repository 12/18/2017 Secondary Muscle weakness CANDISOUFETHAN Active [facility] Diagnosis (generalized) / [facility] M6281(ICD-10) Hospital Repository 12/14/2017 Unknown 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, 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 / Hospital Q78.0(ICD-10) Repository 12/14/2017 Unknown M54.9 - Dorsalgia, Tereletsky, Active Reeder unspecified / [facility] M54.9(ICD-10) Hospital Repository 12/14/2017 Unknown G89.29 - Other Tereletsky, Active Reeder chronic pain / [facility] G89.29(ICD-10) Hospital Repository PROCEDURES PROCEDURES No Procedure Records FoundRESULTS RESULTS OPERATIVE REPORT Observed: 09/07/2018 Status: F Source: [place] 12:38 PM [facility] REPOSITORY [facility] Medical Records Department [address] [place] [address] Operative Report 09/07/18 1233 MR#: [id number] Acct: [id number] Name: JILL AYALA Rep #: [id number] : 1955 62 From: Derek Restrepo MD PCP: AC De La Fuente Status: [facility] Y Location: [facility] Problem List (1) Degeneration of intervertebral disc of lumbosacral region Status: Chronic (2) Radiculopathy of lumbosacral region Status: Chronic (3) Chronic back pain Status: Chronic Qualifiers: Report of Operation Date of Procedure: 09/07/18 Pre-Operative Diagnosis: Lumbosacral radiculopathy, lumbosacral degenerative disc disease Post-Operative Diagnosis: Lumbosacral radiculopathy, lumbosacral degenerative disc disease Surgery/Procedure Performed:: Diagnostic/therapeutic caudal epidural steroid injection Description of Surgical Findings:: PROCEDURE: Diagnostic/therapeutic caudal epidural steroid injection PREOPERATIVE DIAGNOSIS: Lumbosacral radiculopathy, lumbosacral degenerative disc disease POSTOPERATIVE DIAGNOSIS: Lumbosacral radiculopathy, lumbosacral degenerative disc disease ANESTHESIA: MAC COMPLICATIONS: None BLOOD LOSS: Minimal PROCEDURE IN DETAIL: History and physical today was reviewed. Risks and benefits of the procedure were explained. The patient understood, agreed to our procedure, and informed consent was obtained. IV inserted per routine protocol. The patient was taken to the operating room, placed in a prone position with a pillow positioned underneath the abdomen. The lower back and tailbone area was prepped and draped in a sterile fashion using iodine 3 under fluoroscopy guidance on the lateral view the caudal space was identified the skin and subcutaneous tissue and size approximately 3 cc of 1% lidocaine using a 25-gauge regular needle under direct visualization fluoroscopy using the lateral approach using a 22-gauge 3-1/2 inch spinal needle the needle was advanced via the skin through the sacral hiatus, tip of the needle passed through the sacrococcygeal ligament advanced approximately S4 area after negative aspiration for blood or CSF a total of 3 cc of contrast were injected to confirm correct placement of the needle as well as cephalad spread the spread was followed to approximately L5 area after confirmation AP as well as lateral view repeated negative aspiration a total of 15 cc of preservative-free 0.125% Marcaine with 80 mg of Depo-Medrol was injected easily. The needles were then removed intact. The patient experienced no signs or symptoms intrathecal, intravascular injection. The patient experienced no paraesthesia. The procedure was completed without any apparent difficult, any complication. The patient appeared to tolerate well. ASSESSMENT AND PLAN: This is a 62-year-old male with lumbosacral radiculopathy, lumbosacral degenerative disc disease status post diagnostic/therapeutic caudal epidural steroid injection. The patient will continue his current medications. The patient will follow in approximately 2 weeks for possible repeat of the procedure if indicated. 09/07/18 1238 <Electronically signed by Derek Restrepo MD> Date Derek Restrepo MD CC: SCHOOL SUPERINTENDENT- Janay Priscabrett Restrepo Signed BEDSIDE GLUCOSE Collected: 09/07/2018 Status: F Source: [place] 10:38 AM [facility] REPOSITORY TYPE CODE TESTS RESULT OUT OF REFERENCE UNITS RANGE LAB L501.080 70-110 mg/dL High BEDSIDE GLU 166 Result Comment: MANAGEMENT OF PATIENT CARE PER NURSING PROTOCOL Performed By: #### L501.080 #### [facility] Point of Care [address] [place] [address] FLUOR GUIDANCE FOR Observed: 09/07/2018 Status: F Source: [place] SPINE INJ 3:47 AM [facility] REPOSITORY [facility] Imaging Services [address] [place] [address] Fluor Guidance for Spine Inj MR#: [id number] Acct: [id number] Name: JILL AYALA Rep #: [id number] : 1955 M 62 From: Shayne Hester MD PCP: AC De La Fuente Status: [facility] Study: Fluor Guidance for Spine Inj Date of Exam: 09/07/18 Exam# [id number] Ordering Dr: Derek Restrepo MD PROCEDURE: Caudal block. DATE OF EXAMINATION: September 07, 2018. INDICATION: Male, 62 years old. Low back pain. FLUOROSCOPY TIME (if supplied): (0:09) minutes/seconds. Intraoperative imaging provided for caudal block. 2 images were obtained. The spinal needle is seen along the mid posterior aspect of the sacrum. RAD/Fluor Guidance for Spine Inj IMPRESSION: Intraoperative imaging provided for caudal block. Electronically Signed: Shayne Hester MD at 10:15 EST Tel [phone], Service support , CC: AC Restrepo Newspaper Inserter: Signed OPERATIVE REPORT Observed: 07/06/2018 Status: F Source: [place] 4:04 PM [facility] REPOSITORY [facility] Medical Records Department [address] [place] [address] Operative Report 07/06/18 1558 MR#: [id number] Acct: [id number] Name: JILL AYALA Rep #: [id number] : 1955 62 From: Derek Restrepo MD PCP: TERE De La Fuente Status: DEP [facility] Y Location: [facility] Problem List (1) Unilateral primary osteoarthritis, right hip Status: Chronic Report of Operation Date of Procedure: 07/06/18 Pre-Operative Diagnosis: Osteoarthritis of the right hip Post-Operative Diagnosis: The arthritis of the right hip Surgery/Procedure Performed:: Right hip intra-articular steroid injection under fluoroscopic guidance Description of Surgical Findings:: PROCEDURE: Right hip intra-articular steroid injection under fluoroscopic guidance PREOPERATIVE DIAGNOSIS: Osteoarthritis of the right hip POSTOPERATIVE DIAGNOSIS: Osteoarthritis of the right hip ANESTHESIA: MAC COMPLICATIONS: None BLOOD LOSS: Minimal PROCEDURE IN DETAIL: History and physical today was reviewed. Risks and benefits of the procedure were explained. The patient understood, agreed to our procedure, and informed consent was obtained. IV inserted per routine protocol. The patient was taken to the operating room, placed in a supine position the right hip area was prepped and draped in a sterile fashion using iodine x3 under fluoroscopy guidance AP view the right hip was visualized the skin and subcutaneous tissue and size approximately 5 cc of 1% lidocaine at approximately 3 cm cephalad to the right greater trochanter under direct visualization with fluoroscopy on AP view using the lateral approach using a 5 inch 22-gauge spinal needle the needle passed through the skin the tip of the needle's maneuver and directed just towards the superiormost aspect of the hip joint once the tip of the needle was at the vicinity of the hip after negative aspiration for blood positive aspiration of synovial fluid a total of 1 cc of contrast was injected to confirm correct placement of the needle as well as halo spread around the hip joint after repeated negative aspiration and confirmation of AP as well as oblique view a total of 10 cc of preservative-free 0.25% Marcaine with 80 mg of Depo-Medrol were injected easily the needle was then removed intact patient experienced no signs or symptoms of intravascular injection patient experienced no paresthesia the procedure was completed without any apparent difficult, any complication. The patient appeared to tolerate well. ASSESSMENT AND PLAN: This is a 62-year-old male with osteoarthritis of the right hip status post right hip intra-articular steroid injection under fluoroscopic guidance. The patient will continue her current medications. The patient will follow in approximately 2 weeks for reevaluation 07/06/18 1604 <Electronically signed by Derek Restrepo MD> Date Derek Restrepo MD CC: SCHOOL SUPERINTENDENT-BC Janay Cope; Derek Restrepo Signed BEDSIDE GLUCOSE Collected: 07/06/2018 Status: F Source: [place] 11:11 AM [facility] REPOSITORY TYPE CODE TESTS RESULT OUT OF REFERENCE UNITS RANGE LAB L501.080 70-110 mg/dL High BEDSIDE GLU 207 Result Comment: MANAGEMENT OF PATIENT CARE PER NURSING PROTOCOL Performed By: #### L501.080 #### [facility] Point of Care [address] [place] [address] FLUORO GUIDED NEEDLE Observed: 07/06/2018 Status: F Source: [place] PLACEMENT 3:55 AM [facility] REPOSITORY [facility] Imaging Services [address] [place] [address] Fluoro Guided Needle Placement MR#: [id number] Acct: [id number] Name: JILL AYALA Rep #: [id number] : 1955 M 62 From: Diaz Isabel DO PCP: AC De La Fuente Status: [facility] Study: Fluoro Guided Needle Placement Date of Exam: 07/06/18 Exam# [id number] Ordering Dr: Derek Restrepo MD STUDY: X-RAY - PELVIS AND RIGHT HIP REASON FOR EXAM: Male, 62 years old. Right hip injection TECHNIQUE: Radiological exam, hip, unilateral, with pelvis when performed; 1 view COMPARISON: None. FINDINGS: 3 spot fluoroscopy views of the right hip demonstrate intra-articular injection. Postsurgical changes. RAD/Fluoro Guided Needle Placement IMPRESSION: As above. Please see performing physician's report for full details. Electronically Signed: Diaz Isabel at 10:19 EDT Tel , Service support , CC: AC Cope; Derek Restrepo Newspaper Inserter: Signed HGB A1C Collected: 06/02/2018 Status: F Source: [facility] 12:00 PM [facility] REPOSITORY TYPE CODE TESTS RESULT OUT OF RANGE REFERENCE UNITS LAB HGB 4.4 - 6.4 % A1C(LOINC) High HGB A1C 6.6 Result Comment: {HB] {A1] Performed By: #### [id number] #### [facility],[address] [place] [address] HIPS B/L MIN 2 Observed: 04/27/2018 Status: F Source: [place] VIEWS W/ PELVIS 6:12 PM [facility] REPOSITORY [facility] Imaging Services [address] [place] [address] Hips B/L min 2 views w/ Pelvis MR#: [id number] Acct: [id number] Name: JILL AYALA Rep #: [id number] : 1955 62 From: Aime Jones DO PCP: AC De La Fuente Status: REG CLI Study: Hips B/L min 2 views w/ Pelvis Date of Exam: 04/27/18 Exam# [id number] Ordering Dr: Derek Restrepo MD STUDY: X-RAY - PELVIS AND BILATERAL HIPS REASON FOR EXAM: Male, 62 years old. Back and hip pain. TECHNIQUE: Radiological exam, hip, bilateral, with pelvis when performed; 3-4 views COMPARISON: Right hip, May 29, 2015. FINDINGS: There is a non-specific bowel gas pattern. Normal visualized soft tissue structures. There is asymmetry of the iliac wings which appears stable when compared to the prior study. There appeared to be old healed fractures of the right superior and inferior pubic rami. Normal left superior and inferior pubic rami. Normal pubic symphysis. Normal bilateral ischial tuberosities. There is a medullary shell in the proximal femoral shaft. There arterial transfixing cortical nails extending in the femoral head and neck. The intratrochanteric fracture seen on the prior study has now healed. The femoral head remains in normal alignment with the acetabulum. There is osteoarthritic spur formation of the right acetabular rim. There is moderate articular joint space narrowing of the right hip. Normal visualized left femoral head. Normal left acetabulum. There is moderate articular joint space narrowing of the left hip. RAD/Hips B/L min 2 views w/ Pelvis IMPRESSION: 1. Remote healed intertrochanteric fracture of the right hip with evidence of internal fixation. 2. Stable moderate degenerative changes bilateral hips. 3. Healed fractures of the right superior and inferior pubic rami. Electronically Signed: Aime Jones DO at 18:53 EDT Tel [phone], Service support , CC: AC Cope; Derek Restrepo Newspaper Inserter: Signed CERV SPINE 2 OR 3 Observed: 04/27/2018 Status: F Source: [place] VIEWS 6:10 PM [facility] REPOSITORY [facility] Imaging Services [address] [place] [address] Cerv Spine 2 or 3 Views MR#: [id number] Acct: [id number] Name: JILL AYALA Rep #: [id number] : 1955 M 62 From: Keshia Baeza MD PCP: AC De La Fuente Status: REG CLI Study: Cerv Spine 2 or 3 Views Date of Exam: 04/27/18 Exam# [id number] Ordering Dr: Derek Restrepo MD STUDY: X-RAY - CERVICAL SPINE REASON FOR EXAM: Male, 62 years old. Pain TECHNIQUE: 5 view(s) of the cervical spine were obtained. COMPARISON: CT May 28, 2016 report only FINDINGS: Normal anterior atlantoaxial articulation. Normal odontoid process. Normal cervical lordosis. There is diffuse demineralization of the cervical spine. There are mild C4-5 osteophyte. There is multi-level degenerative disc disease with multilevel disc space narrowing. There is facet arthropathy. The soft tissue structures are unremarkable. RAD/Cerv Spine 2 or 3 Views IMPRESSION: Again seen are degenerative changes. There is osteopenia. Electronically Signed: Keshia Baeza MD at 14:04 EDT , Service support , CC: AC Cope; Derek Restrepo Newspaper Inserter: Signed LUMBAR SPINE 2 OR 3 Observed: 04/27/2018 Status: F Source: [place] VIEWS 6:10 PM [facility] REPOSITORY [facility] Imaging Services [address] [place] [address] Lumbar Spine 2 or 3 Views MR#: [id number] Acct: [id number] Name: JILL AYALA Rep #: [id number] : 1955 M 62 From: Keshia Baeza MD PCP: AC De La Fuente Status: REG CLI Study: Lumbar Spine 2 or 3 Views Date of Exam: 04/27/18 Exam# [id number] Ordering Dr: Derek Restrepo MD STUDY: X-RAY - LUMBAR SPINE REASON FOR EXAM: Male, 62 years old. back pain TECHNIQUE: 3 view(s) of the lumbar spine were obtained. COMPARISON: CT June 17, 2015 FINDINGS: There is an exaggerated lumbar lordosis. There is no substantial scoliosis. There is a normal alignment of the vertebrae. Again seen is T12 vertebroplasty. Again seen is severe loss of disc height at L5-S1. There is new multilevel loss of disc height. There is a L3 compression fracture of indeterminate age, new since the prior exam. The soft tissue structures are unremarkable. RAD/Lumbar Spine 2 or 3 Views IMPRESSION: There is a L3 compression fracture of indeterminate age, new since the prior exam. There is new multilevel loss of disc height. Electronically Signed: Keshia Baeza MD at 14:17 EDT , Service support , CC: AC Cope; Derek Restrepo Newspaper Inserter: Signed CBC Collected: 02/20/2018 Status: F Source: [place] 3:00 PM [facility] REPOSITORY TYPE CODE TESTS RESULT OUT OF RANGE REFERENCE UNITS LAB CBC(LOINC) CBC Result Comment: CBC-COMPLETE BLOOD COUNT LAB WBC(LOINC) 4.5 - 10.8 x 10EE3/UL WBC 5.9 LAB RBC(LOINC) 4.50 - x 10EE6/UL 6.00 RBC Low 4.49 LAB HEMOGLOBIN(LOINC 13.0 - g/dl ) 17.5 HEMOGLOBIN 13.4 LAB HEMATOCRIT(LOINC 40.0 - % ) 52.0 HEMATOCRIT 40.4 LAB MCV(LOINC) 81 - 98 fl MCV 90 LAB MCH(LOINC) 27 - 33 pg MCH 30 LAB MCHC(LOINC) 32 - 36 X10 3 MCHC 33 LAB RDW/CV(LOINC) 12.0 - % 15.6 RDW/CV High 15.9 LAB PLATELET(LOINC) 150 - 450 x10EE3/UL PLATELET 240 LAB MPV(LOINC) 6.4 - 10.5 fl MPV 9.3 Result Comment: AUTOMATED DIFFERENTIAL LAB NEUT %(LOINC) 46.0 - 76.0 % Low NEUT % 45.9 LAB LYMPH %(LOINC) 20.0 - 45.0 % LYMPH % High 46.7 LAB MONOS %(LOINC) 0.0 - 10.0 % MONOS % 5.7 LAB EO %(LOINC) 0.0 - 7.0 % EO % 1.3 LAB BASO %(LOINC) 0.0 - 2.0 % BASO % 0.4 LAB Lymph #(LOINC) 0.80 - 2.80 x10EE3/U L Lymph # 2.70 LAB Neut #(LOINC) 1.50 - 7.10 x10EE3/U L Neut # 2.70 LAB Marquette #(LOINC) 0.20 - 1.00 x10EE3/U L Marquette # 0.30 LAB EO #(LOINC) 0.00 - 0.50 x10EE3/U L EO # 0.10 LAB Baso #(LOINC) 0.00 - 0.10 x10EE3/U L Baso # 0.00 LAB MANUAL DIFF(LOINC) MANUAL DIFF N/A LAB MORPHOLOGY(LOINC ) MORPHOLOGY N/A Result Comment: {CD] Performed By: #### [id number] #### [place] [address] LIPID PROFILE Collected: 02/20/2018 Status: F Source: [facility] 3:00 [facility] REPOSITORY TYPE CODE TESTS RESULT OUT OF REFERENCE UNITS RANGE LAB LIPID PROFILE(LOIN C) LIPID PROFILE Result Comment: LIPID PROFILE LAB TRIGLYCERIDE(LOINC) 0 - 150 mg/dl High TRIGLYCERIDE 169 LAB CHOLESTEROL(LOINC) 0 - 200 mg/dl CHOLESTEROL 161 LAB HDL(LOINC) 40 - 60 mg/dl HDL 40 LAB CHOL/HDL(LOINC) 0.0 - 5.0 CHOL/HDL 4.0 LAB LDL(LOINC) 0 - 129 mg/dl LDL 87 Performed By: #### [id number] #### [place] [address] CMP WITH EGFR Collected: 02/20/2018 Status: F Source: [facility] 3:00 [facility] REPOSITORY TYPE CODE TESTS RESULT OUT OF RANGE REFERENCE UNITS LAB CMP with eGFR(LOINC) CMP with eGFR Result Comment: COMPREHENSIVE METABOLIC PANEL LAB SODIUM(LOINC) 136 - 145 mmol/l SODIUM Low 131 LAB POTASSIUM(LOINC) 3.5 - 5.1 mmol/L POTASSIUM 4.1 LAB CHLORIDE(LOINC) 98 - 107 mmol/L CHLORIDE 104 LAB CO2(LOINC) 21.0 - mmol/L 31.0 CO2 21.6 LAB GLUCOSE(LOINC) 74 - 106 mg/dl GLUCOSE High 369 LAB BUN(LOINC) 6 - 20 mg/dl BUN High 21 LAB CREATININE(LOINC) 0.7 - 1.3 mg/dl CREATININE 0.9 LAB AST/SGOT(LOINC) 13 - 39 U/L AST/SGOT 13 LAB ALK PHOS(LOINC) 38 - 126 U/L ALK PHOS 47 LAB CALCIUM(LOINC) 8.6 - mg/dl 10.2 CALCIUM 9.6 LAB TOTAL 6.4 - 8.3 g/dl PROTEIN(LOINC) TOTAL PROTEIN 6.8 LAB ALBUMIN(LOINC) 3.4 - 4.8 g/dL ALBUMIN 4.2 LAB GLOBULIN(LOINC) 1.5 - 3.8 G/DL GLOBULIN 2.6 LAB A/G RATIO(LOINC) 0.9 - 1.6 A/G RATIO 1.6 LAB TOTAL BILI(LOINC) 0.0 - 1.5 mg/dl TOTAL BILI 0.4 LAB B/C RATIO(LOINC) 0 - 30 ratio B/C RATIO 23 LAB ALT/SGPT(LOINC) 10 - 40 U/L ALT/SGPT 11 LAB ANION GAP(LOINC) 10 - 20 mmol/L ANION GAP 10 LAB AGE(LOINC) years AGE 62 LAB eGFR(LOINC) 60 - 999 ML/MINUTE eGFR >60 LAB eGFR(AA)(LOINC) 60 - 999 ML/MINUTE eGFR(AA) >60 Result Comment: ACCORDING TO THE NATIONAL KIDNEY DISEASE EDUCATION PROGRAM(NKDE), A NORMAL eGFR IS A VALUE GREATER THAN OR EQUAL TO 60 ML/MIN/1.73 SQ METERS. CHRONIC KIDNEY DISEASE: <60mL/MIN/1.73 SQ METERS KIDNEY FAILURE: <15mL/MIN/1.73 SQ METERS THIS TEST SHOULD ONLY BE USED FOR PATIENTS 18 YEARS OF AGE AND OLDER. Performed By: #### [id number] #### [facility],[address] [place] [address] VITAMIN D, 25 Collected: 02/20/2018 Status: F Source: [facility] 3:00 PM [facility] REPOSITORY TYPE CODE TESTS RESULT OUT OF RANGE REFERENCE UNITS LAB VitD(LOINC) 30.00 - 100 ng/mL VitD 49.41 Result Comment: 25-OHD3 indicates both endogenous production and supplementation. 25-OHD2 is an indicator of exogenous sources, such as diet or supplementation. Therapy is based on measurement of Total 25-OHD, with levels <20 ng/mL indicative of Vitamin D deficiency, while levels between 20 ng/mL and 30 ng/mL suggest insufficiency. Optimal levels are >=30ng/mL. Vitamin D, 25-OH D3 Not Established Vitamin D, 25-OH D2 Not Established Performed By: #### [id number] #### [address] [address] HGB A1C Collected: 02/20/2018 Status: F Source: [facility] 3:00 PM [facility] REPOSITORY TYPE CODE TESTS RESULT OUT OF RANGE REFERENCE UNITS LAB HGB 4.4 - 6.4 % A1C(LOINC) High HGB A1C 9.0 Result Comment: {HB] {A1] Performed By: #### [id number] #### [address] [address] CBC (NO DIFF) Collected: 12/29/2017 Status: F Source: [facility] 9:30 AM [facility] REPOSITORY TYPE CODE TESTS RESULT OUT OF RANGE REFERENCE UNITS LAB CBC (NO DIFF)(LOINC ) CBC (NO DIFF) Result Comment: CBC(WITHOUT DIFFERENTIAL) LAB WBC(LOINC) 4.5 - 10.8 x 10EE3/UL WBC 6.6 LAB RBC(LOINC) 4.50 - x 10EE6/UL 6.00 RBC Low 4.28 LAB HEMOGLOBIN(LOINC) 13.0 - g/dl 17.5 Low HEMOGLOBIN 12.9 LAB HEMATOCRIT(LOINC) 40.0 - % 52.0 Low HEMATOCRIT 38.1 LAB MCV(LOINC) 81 - 98 fl MCV 89 LAB MCH(LOINC) 27 - 33 pg MCH 30 LAB MCHC(LOINC) 32 - 36 X10 3 MCHC 34 LAB RDW/CV(LOINC) 12.0 - % 15.6 RDW/CV 15.4 LAB PLATELET(LOINC) 150 - 450 x10EE3/UL PLATELET 292 LAB MPV(LOINC) 6.4 - 10.5 fl MPV 10.1 Result Comment: {CB] Performed By: #### [id number] #### [facility],[address] [place] [address] CBC (NO DIFF) Collected: 12/18/2017 Status: F Source: [facility] 3:50 [facility] REPOSITORY TYPE CODE TESTS RESULT OUT OF RANGE REFERENCE UNITS LAB CBC (NO DIFF)(LOINC ) CBC (NO DIFF) Result Comment: CBC(WITHOUT DIFFERENTIAL) LAB WBC(LOINC) 4.5 - 10.8 x 10EE3/UL WBC 7.2 LAB RBC(LOINC) 4.50 - x 10EE6/UL 6.00 RBC Low 4.05 LAB HEMOGLOBIN(LOINC) 13.0 - g/dl 17.5 Low HEMOGLOBIN 12.0 LAB HEMATOCRIT(LOINC) 40.0 - % 52.0 Low HEMATOCRIT 35.8 LAB MCV(LOINC) 81 - 98 fl MCV 88 LAB MCH(LOINC) 27 - 33 pg MCH 30 LAB MCHC(LOINC) 32 - 36 X10 3 MCHC 34 LAB RDW/CV(LOINC) 12.0 - % 15.6 RDW/CV 15.3 LAB PLATELET(LOINC) 150 - 450 x10EE3/UL PLATELET 332 LAB MPV(LOINC) 6.4 - 10.5 fl MPV 9.4 Result Comment: {CB] Performed By: #### [id number] #### [facility],[address] [place] [address] CMP WITH EGFR Collected: 12/18/2017 Status: F Source: [facility] 3:50 [facility] REPOSITORY TYPE CODE TESTS RESULT OUT OF RANGE REFERENCE UNITS LAB CMP with eGFR(LOINC) CMP with eGFR Result Comment: COMPREHENSIVE METABOLIC PANEL LAB SODIUM(LOINC) 136 - 145 mmol/l SODIUM 136 LAB POTASSIUM(LOINC) 3.5 - 5.1 mmol/L POTASSIUM 4.0 LAB CHLORIDE(LOINC) 98 - 107 mmol/L CHLORIDE 102 LAB CO2(LOINC) 21.0 - mmol/L 31.0 CO2 26.2 LAB GLUCOSE(LOINC) 74 - 106 mg/dl GLUCOSE High 244 LAB BUN(LOINC) 6 - 20 mg/dl BUN 14 LAB CREATININE(LOINC) 0.7 - 1.3 mg/dl CREATININE 0.7 LAB AST/SGOT(LOINC) 13 - 39 U/L AST/SGOT Low 12 LAB ALK PHOS(LOINC) 38 - 126 U/L ALK PHOS 46 LAB CALCIUM(LOINC) 8.6 - mg/dl 10.2 CALCIUM 9.3 LAB TOTAL 6.4 - 8.3 g/dl PROTEIN(LOINC) TOTAL PROTEIN 6.5 LAB ALBUMIN(LOINC) 3.4 - 4.8 g/dL ALBUMIN 3.5 LAB GLOBULIN(LOINC) 1.5 - 3.8 G/DL GLOBULIN 3.0 LAB A/G RATIO(LOINC) 0.9 - 1.6 A/G RATIO 1.2 LAB TOTAL BILI(LOINC) 0.0 - 1.5 mg/dl TOTAL BILI 0.3 LAB B/C RATIO(LOINC) 0 - 30 ratio B/C RATIO 20 LAB ALT/SGPT(LOINC) 10 - 40 U/L ALT/SGPT 14 LAB ANION GAP(LOINC) 10 - 20 mmol/L ANION GAP 12 LAB AGE(LOINC) years AGE 62 LAB eGFR(LOINC) 60 - 999 ML/MINUTE eGFR >60 LAB eGFR(AA)(LOINC) 60 - 999 ML/MINUTE eGFR(AA) >60 Result Comment: ACCORDING TO THE NATIONAL KIDNEY DISEASE EDUCATION PROGRAM(NKDE), A NORMAL eGFR IS A VALUE GREATER THAN OR EQUAL TO 60 ML/MIN/1.73 SQ METERS. CHRONIC KIDNEY DISEASE: <60mL/MIN/1.73 SQ METERS KIDNEY FAILURE: <15mL/MIN/1.73 SQ METERS THIS TEST SHOULD ONLY BE USED FOR PATIENTS 18 YEARS OF AGE AND OLDER. Performed By: #### [id number] #### [place] [address] TSH Collected: 12/18/2017 Status: F Source: [facility] 3:50 [facility] REPOSITORY TYPE CODE TESTS RESULT OUT OF RANGE REFERENCE UNITS LAB TSH(INC) 0.34 - 5.60 uIU/ml TSH 1.49 Performed By: #### [id number] #### [place] [address] HGB A1C Collected: 12/18/2017 Status: F Source: [facility] 3:50 [facility] REPOSITORY TYPE CODE TESTS RESULT OUT OF RANGE REFERENCE UNITS LAB HGB 4.4 - 6.4 % A1C(LOINC) High HGB A1C 7.7 Result Comment: {HB] {A1] Performed By: #### [id number] #### [facility],[address] [facility] [address] DISCHARGE SUMMARY Observed: 12/14/2017 Status: F Source: [facility] 11:18 AM [facility] REPOSITORY [facility] Medical Records Department [address] [place] [address] Discharge Summary 12/14/17 1112 MR#: [id number] Acct: [id number] Name: JILL AYALA Rep #: [id number] : 1955 62 From: Feroz Tomlinson DO PCP: AC De La Fuente Status: DIS IN Y Location: [place] [address]-1 Discharge Date and Diagnosis Date of Admission: 12/05/17 Date of Discharge: 12/12/17 - Primary Discharge Diagnosis #1 acute sepsis secondary to healthcare acquired left lower lobe pneumonia-suspected to be secondary to gram-negative bacteria #2 acute left lower lobe ammonia-suspected to be secondary to gram-negative bacteria-healthcare acquired #3 metabolic encephalopathy secondary to acute sepsis #4 hypoxia secondary to healthcare acquired left lower lobe pneumonia #5 osteogenesis imperfecta #6 hypertension #7 type 2 diabetes #8 chronic pain syndrome secondary to past history of vertebral fracture and right leg fracture - Secondary Discharge Diagnosis Chronic Problems Anxiety and depression (Chronic) HTN (hypertension) (Chronic) GERD (gastroesophageal reflux disease) (Chronic) Low back pain (Chronic) Type II diabetes mellitus (Chronic) Chronic back pain (Chronic) Osteogenesis imperfecta (Chronic) Hospital Course and Treatment Operations: None, - - Right hip arthroplasty Procedures: None Summary of Care Provided: The patient is a 62 year old M who was seen in the emergency room at [facility] with a chief complaint of fever and mental status change, he had been recently discharged from the hospital for previous mental status change. He was lethargic at home was brought back for evaluation. Chest x-ray revealed a left lower lobe infiltrate, EKG showed sinus tachycardia with PACs, his white count was elevated, lactic acid was normal, he met criteria for acute sepsis. Patient was admitted to [place] [address], treated with IV antibiotics for healthcare acquired gram-negative pneumonia, cultures obtained during his hospitalization were negative, urine culture was positive for a staph organism but this was felt to be a contaminant. Over the next several days, patient's mental status improved, he was seen by PT and OT, and it was felt that he would benefit from short-term placement in a senior living facility. On 12/12/17, patient was seen and examined felt in stable condition for transfer to senior living facility for further long-term Medications: Medications to take at Discharge Ascorbic Acid [Vitamin C] 1,000 mg PO BIDCM 06/17/15 Calcium Carbonate [Calcium] 600 mg PO BID #0 08/29/15 Cholecalciferol (Vitamin D3) [Vitamin D3] 1 capsule PO DAILY 05/28/16 Cyanocobalamin (Vitamin B-12) [Vitamin B-12] 2,500 mcg PO DAILY 12/01/17 Docusate Sodium [Colace] 100 mg PO BID 12/01/17 Folic Acid 0.8 mg PO DAILY@0800 12/01/17 Omeprazole [Prilosec] 20 mg PO DAILY 12/01/17 Senna/Docusate Sodium [Senokot-S] 2 tablet PO MOWEFR 12/01/17 Sertraline HCl [Zoloft] 50 mg PO QHS 12/01/17 Cyclobenzaprine [Flexeril] 5 mg PO TID PRN PRN #20 tab 12/02/17 Fenofibrate [Tricor] 145 mg PO DAILY #30 tab 12/02/17 Acetaminophen [Tylenol Tablet] 650 mg PO Q6H PRN PRN tablet 12/12/17 Hydrocodone Bitart/Apap 5-325 [[place] 5/325] 1 - 2 tab PO Q6H PRN PRN 7 Days #40 tab 12/12/17 Insulin Aspart [Novolog Flexpen] 10 units SC TIDAC #1 flexpen 12/12/17 Insulin Detemir [Levemir (BKC)] 15 units SC BID #1 flexpen 12/12/17 levoFLOXacin tablet [Levaquin tablet] 500 mg PO DAILY@0600 tablet 12/12/17 Following Prescrptions Were Given to Patient: Hydrocodone Bitart/Apap 5-325 [[place] 5/325] 1 - 2 tab PO Q6H PRN PRN 7 Days #40 tab PRN Reason: Pain Insulin Aspart [Novolog Flexpen] 10 units SC TIDAC #1 flexpen Insulin Detemir [Levemir (BKC)] 15 units SC BID #1 flexpen Primary Care Physician: Janay Cope NP-C [Primary Care Provider] - Disposition: Longterm facility Minutes spent on discharge:: 36 Patient Condition:: Stable Medical Necessity - Tobacco Use Smoking Status: Former smoker Tobacco Use: Non-smoker Meaningful Use Info Meaningful Use Diagnoses (Choose all that apply): None applicable Code Visit Inpatient E AND M: 01076 Disch Hosp 12/14/17 1118 <Electronically signed by Feroz Tomlinson DO> Date Feroz Tomlinson DO Cosigner Signature (if applicable): Date CC: SCHOOL SUPERINTENDENT-BC Janay Cope; Feroz Tomlinson DO Signed BEDSIDE GLUCOSE Collected: 12/12/2017 Status: F Source: [facility] 3:55 PM [facility] REPOSITORY TYPE CODE TESTS RESULT OUT OF REFERENCE UNITS RANGE LAB L501.080 70-110 mg/dL High BEDSIDE GLU 326 Result Comment: MANAGEMENT OF PATIENT CARE PER NURSING PROTOCOL Performed By: #### L501.080 #### [facility] Laboratory Point of [address] [place] [address] BEDSIDE GLUCOSE Collected: 12/12/2017 Status: F Source: [place] 11:07 AM [facility] REPOSITORY TYPE CODE TESTS RESULT OUT OF REFERENCE UNITS RANGE LAB L501.080 70-110 mg/dL High BEDSIDE GLU 342 Result Comment: MANAGEMENT OF PATIENT CARE PER NURSING PROTOCOL Performed By: #### L501.080 #### [facility] Point of Care [address] [place] [address] TRANSFER TO [facility] Observed: 12/12/2017 Status: F Source: [facility] 9:07 AM [facility] REPOSITORY [facility] Medical Records Department [address] [place] [address] Transfer to Extended Care MR#: [id number] Acct: [id number] Name: JILL AYALA Rep #: [id number] : 1955 62 From: Feroz Tomlinson DO PCP: TERE De La Fuente Status: ADM IN JILL AYALA (Patient) (Health Ins. Claim No.) (Day of Discharge to Facility) Certification of patient admission REQUIRED AT TIME OF ADMISSION. I CERTIFY THAT POST-HOSPITAL ECF SERVICES ARE REQUIRED TO BE GIVEN ON AN IN-PATIENT BASIS BECAUSE OF THE ABOVE NAMED PATIENT'S NEED FOR PENITENTIARY CARE ON A CONTINUING BASIS FOR THE CONDITION(S) FOR WHICH HE/SHE WAS RECEIVING IN-PATIENT HOSPITAL SERVICES PRIOR TO HIS/HER TRANSFER TO THE ECF. 12/12/17 0907 <Electronically signed by Feroz Tomlinson DO> Date Feroz Tomlinson DO - Diet 12/05/17 21:01 Diet: Calorie Controlled Type of Dietary Supplement:: Glucerna Shake How many daily calories?: 1800 calorie - Routine Orders/Code Status Routine Lab Work: - - FINGERSTICK BLOOD SUGARS ACQHS-COVER WITH SLIDING SCALE INSULIN NOVOLOG SQ: 200-250:5 UNITS, 251-300: 8 UNITS, 301-350:12 UNITS, 351- 400: 15 UNITS - Wound(s) bilateral toes Wound Type: Abrasion - Therapies Physical Therapy: Eval and Treat Occupational Therapy: Eval and Treat - Problem/Diagnosis (1) Anxiety and depression Status: Chronic Current Visit: Yes (2) Encephalopathy Status: Acute Comment: SECONDARY TO PNEUMONIA Current Visit: No (3) Type II diabetes mellitus Status: Chronic Current Visit: No (4) Chronic back pain Status: Chronic Current Visit: No (5) Osteogenesis imperfecta Status: Chronic Current Visit: No - Allergies/Procedures Done in Hospital Allergies/Adverse Reactions: Allergies fentanyl Adverse Reaction (Verified 12/05/17 18:26) lethargic, unresponsive, hallucinations morphine Adverse Reaction (Verified 12/05/17 18:26) lethargic, unresponsive, hallucinations IVP DYE Allergy (Uncoded 12/05/17 18:26) Anaphylaxis Procedures: None - Type of Care/Length of Stay Estimated LOS: Convalescent Care Less Than 30 days Type of Care Needed: Skilled Rehab Potential: Good Prognosis: Good - Additional Orders/Day of Discharge H AND P will serve as current which was dated: 12/05/17 Day of Discharge: 12/12/17 - Follow Up Care Primary Care Physician: Janay Cope, [facility] [Primary Care Provider] - 12/12/17906 <Electronically signed by Feroz Tomlinson DO> Date Feroz Tomlinson DO CC: SCHOOL SUPERINTENDENT-EULALIA Cope Signed BEDSIDE GLUCOSE Collected: 12/12/2017 Status: F Source: [place] 7:36 AM [facility] REPOSITORY TYPE CODE TESTS RESULT OUT OF REFERENCE UNITS RANGE LAB L501.080 70-110 mg/dL High BEDSIDE GLU 297 Result Comment: MANAGEMENT OF PATIENT CARE PER NURSING PROTOCOL Performed By: #### L501.080 #### [facility] Point of Care [address] [place] [address] BEDSIDE GLUCOSE Collected: 12/11/2017 Status: F Source: [place] 9:18 PM [facility] REPOSITORY TYPE CODE TESTS RESULT OUT OF REFERENCE UNITS RANGE LAB L501.080 70-110 mg/dL High BEDSIDE GLU 322 Result Comment: MANAGEMENT OF PATIENT CARE PER NURSING PROTOCOL Performed By: #### L501.080 #### [facility] Point of Care [address] [place] [address] BEDSIDE GLUCOSE Collected: 12/11/2017 Status: F Source: [place] 3:51 PM [facility] REPOSITORY TYPE CODE TESTS RESULT OUT OF REFERENCE UNITS RANGE LAB L501.080 70-110 mg/dL High BEDSIDE GLU 358 Result Comment: MANAGEMENT OF PATIENT CARE PER NURSING PROTOCOL Performed By: #### L501.080 #### [facility] Point of Care [address] [place] [address] BEDSIDE GLUCOSE Collected: 12/11/2017 Status: F Source: [place] 11:11 AM [facility] REPOSITORY TYPE CODE TESTS RESULT OUT OF REFERENCE UNITS RANGE LAB L501.080 70-110 mg/dL High BEDSIDE GLU 277 Result Comment: MANAGEMENT OF PATIENT CARE PER NURSING PROTOCOL Performed By: #### L501.080 #### [facility] Point of Care [address] [place] [address] BEDSIDE GLUCOSE Collected: 12/11/2017 Status: F Source: [place] 7:29 AM [facility] REPOSITORY TYPE CODE TESTS RESULT OUT OF REFERENCE UNITS RANGE LAB L501.080 70-110 mg/dL High BEDSIDE GLU 304 Result Comment: MANAGEMENT OF PATIENT CARE PER NURSING PROTOCOL Performed By: #### L501.080 #### [facility] Point of Care [address] [place] [address] BEDSIDE GLUCOSE Collected: 12/10/2017 Status: F Source: [place] 8:57 PM [facility] REPOSITORY TYPE CODE TESTS RESULT OUT OF REFERENCE UNITS RANGE LAB L501.080 70-110 mg/dL High BEDSIDE GLU 349 Result Comment: MANAGEMENT OF PATIENT CARE PER NURSING PROTOCOL Performed By: #### L501.080 #### [facility] Point of Care [address] [place] [address] BEDSIDE GLUCOSE Collected: 12/10/2017 Status: F Source: [place] 4:24 PM [facility] REPOSITORY TYPE CODE TESTS RESULT OUT OF REFERENCE UNITS RANGE LAB L501.080 70-110 mg/dL High BEDSIDE GLU 292 Result Comment: MANAGEMENT OF PATIENT CARE PER NURSING PROTOCOL Performed By: #### L501.080 #### [facility] Point of Care [address] [place] [address] BEDSIDE GLUCOSE Collected: 12/10/2017 Status: F Source: [place] 10:55 AM [facility] REPOSITORY TYPE CODE TESTS RESULT OUT OF REFERENCE UNITS RANGE LAB L501.080 70-110 mg/dL High BEDSIDE GLU 285 Result Comment: MANAGEMENT OF PATIENT CARE PER NURSING PROTOCOL Performed By: #### L501.080 #### [facility] Point of Care [address] [place] [address] BEDSIDE GLUCOSE Collected: 12/10/2017 Status: F Source: [place] 8:04 AM [facility] REPOSITORY TYPE CODE TESTS RESULT OUT OF REFERENCE UNITS RANGE LAB L501.080 70-110 mg/dL High BEDSIDE GLU 263 Result Comment: MANAGEMENT OF PATIENT CARE PER NURSING PROTOCOL Performed By: #### L501.080 #### [facility] Point of Care [address] [place] [address] BEDSIDE GLUCOSE Collected: 12/09/2017 Status: F Source: [place] 9:37 PM [facility] REPOSITORY TYPE CODE TESTS RESULT OUT OF REFERENCE UNITS RANGE LAB L501.080 70-110 mg/dL High BEDSIDE GLU 273 Result Comment: MANAGEMENT OF PATIENT CARE PER NURSING PROTOCOL Performed By: #### L501.080 #### [facility] Point of Care [address] [place] [address] BEDSIDE GLUCOSE Collected: 12/09/2017 Status: F Source: [place] 3:50 PM [facility] REPOSITORY TYPE CODE TESTS RESULT OUT OF REFERENCE UNITS RANGE LAB L501.080 70-110 mg/dL High BEDSIDE GLU 298 Result Comment: MANAGEMENT OF PATIENT CARE PER NURSING PROTOCOL Performed By: #### L501.080 #### [facility] Point of Care [address] [place] [address] BEDSIDE GLUCOSE Collected: 12/09/2017 Status: F Source: [place] 11:02 AM [facility] REPOSITORY TYPE CODE TESTS RESULT OUT OF REFERENCE UNITS RANGE LAB L501.080 70-110 mg/dL High BEDSIDE GLU 286 Result Comment: MANAGEMENT OF PATIENT CARE PER NURSING PROTOCOL Performed By: #### L501.080 #### [facility] Point of Care [address] [place] [address] BEDSIDE GLUCOSE Collected: 12/09/2017 Status: F Source: [place] 7:55 AM [facility] REPOSITORY TYPE CODE TESTS RESULT OUT OF REFERENCE UNITS RANGE LAB L501.080 70-110 mg/dL High BEDSIDE GLU 251 Result Comment: MANAGEMENT OF PATIENT CARE PER NURSING PROTOCOL Performed By: #### L501.080 #### [facility] Point of Care [address] [place], [place] [address] CBC-COMPLETE BLOOD CNT Collected: 12/09/2017 Status: F Source: [place] NO DIFF 5:30 AM [facility] REPOSITORY TYPE CODE TESTS RESULT OUT OF RANGE REFERENCE UNITS LAB L100.1000 4.4-11.0 K/mm3 Normal WBC 7.3 LAB L100.1200 4.6-6.2 M/mm3 Low RBC 3.76 LAB L100.1300 13.0-16.5 g/dl Low HGB 11.3 LAB L100.1400 40-54 % Low HCT 33.6 LAB L100.1500 80-94 fL Normal MCV 89.4 LAB L100.1600 27.0-32.0 pg Normal MCH 30.1 LAB L100.1700 32-36 g/gl Normal MCHC 33.6 LAB L100.1810 11.6-14.6 % Normal RDW CV 14.6 LAB L100.1820 35.1-43.9 fl High RDW SD 46.6 LAB L100.1900 150-450 K/mm3 Normal PLT 291 LAB L100.2000 6.2-12.0 fl Normal MPV 10.8 Performed By: #### L100.0500 #### [facility] [address] [place], [place], [address] BASIC METABOLIC Collected: 12/09/2017 Status: F Source: [place] PROFILE (BMP) 5:30 AM [facility] REPOSITORY TYPE CODE TESTS RESULT OUT OF RANGE REFERENCE UNITS LAB L501.0100 74-106 mg/dL High GLU 242 Result Comment: Glucose result greater than or equal to 200 mg/dL suggests DIABETES MELLITUS per A.D.A. criteria. Please note revised GLUCOSE reference range effective 2017. LAB L501.1000 7-18 mg/dL Normal BUN 10 LAB L501.1100 0.70-1.30 mg/dL Low CREAT,SERUM 0.62 Result Comment: The validity of the calculated GFR AND GFRAA in patients over 70 years has not been determined. Clinical correlation is essential. LAB L501.1110 >60 mL/min Normal EST GFR 141 Result Comment: Non- GFR Calc LAB L501.1115 >60 mL/min Normal EST GFR - AA 170 Result Comment: GFR Calc LAB L501.1255 ml/min Normal Estimated CRCL 143.63 LAB L501.1300 10-20 RATIO BUN/CRE Normal 16.2 LAB L501.2200 8.5-10 mg/dL .1 CA Normal 9.3 LAB L501.5300 136-14 mmol/L 5 NA Normal 137 LAB L501.5600 3.5-5. mmol/L 1 K Normal 3.9 LAB L501.5900 98-107 mmol/L CL Normal 104 LAB L501.6100 21.0-3 mmol/L 2.0 CO2 Normal 26.0 LAB L501.6200 5-15 GAP Normal 7 Performed By: #### L500.2500 #### [facility] [address] [facility] [address] BEDSIDE GLUCOSE Collected: 12/08/2017 Status: F Source: [place] 8:57 PM [facility] REPOSITORY TYPE CODE TESTS RESULT OUT OF REFERENCE UNITS RANGE LAB L501.080 70-110 mg/dL High BEDSIDE GLU 279 Result Comment: MANAGEMENT OF PATIENT CARE PER NURSING PROTOCOL Performed By: #### L501.080 #### [facility] Point of Care [address] [place] [address] BEDSIDE GLUCOSE Collected: 12/08/2017 Status: F Source: [place] 4:49 PM [facility] REPOSITORY TYPE CODE TESTS RESULT OUT OF REFERENCE UNITS RANGE LAB L501.080 70-110 mg/dL High BEDSIDE GLU 250 Result Comment: MANAGEMENT OF PATIENT CARE PER NURSING PROTOCOL Performed By: #### L501.080 #### [facility] Point of Care [address] [place] [address] 12 LEAD ELECTROCARDIOGRAM Observed: 12/08/2017 Status: F Source: [place] 1:30 PM [facility] REPOSITORY [facility] Cardiovascular Services [address] [place] [address] 12 Lead EKG 12/05/17 1908 MR#: [id number] Acct: [id number] Name: JILL AYALA Rep #: [id number] : 1955 62 From: Juliocesar Watts MD Attending Dr: Feroz Tomlinson DO Status: ADM IN Ordering Dr: Derek Ramirez MD Date: 12/05/17 Location: MS2 Sex: M C Admitted: 12/05/17 Test Reason : ALT. MENTAL STAT Blood Pressure : / mmHG Vent. Rate : 106 BPM Atrial Rate : 106 BPM P-R Int : 160 ms QRS Dur : 088 ms QT Int : 306 ms P-R-T Axes : -11 -39 103 degrees QTc Int : 406 ms Sinus tachycardia with Premature atrial complexes Left axis deviation Left ventricular hypertrophy with repolarization abnormality Abnormal ECG Confirmed by JULIOCESAR WATTS ([id number]), screedman ROSANNA DE LA CRUZ ([id number]) on 12/08/2017 1:30:34 PM Referred By: Confirmed By:JULIOCESAR WATTS 12/08/17 1330 Date Juliocesar Watts MD CC: SCHOOL SUPERINTENDENT-BC Janay Cope; Derek Ramirez MD Signed BEDSIDE GLUCOSE Collected: 12/08/2017 Status: F Source: [place] 12:22 PM [facility] REPOSITORY TYPE CODE TESTS RESULT OUT OF REFERENCE UNITS RANGE LAB L501.080 70-110 mg/dL High BEDSIDE GLU 235 Result Comment: MANAGEMENT OF PATIENT CARE PER NURSING PROTOCOL Performed By: #### L501.080 #### [facility] Point of Care [address] [place] [address] BEDSIDE GLUCOSE Collected: 12/08/2017 Status: F Source: [place] 9:13 AM [facility] REPOSITORY TYPE CODE TESTS RESULT OUT OF REFERENCE UNITS RANGE LAB L501.080 70-110 mg/dL High BEDSIDE GLU 297 Result Comment: MANAGEMENT OF PATIENT CARE PER NURSING PROTOCOL Performed By: #### L501.080 #### [facility] Point of Care [address] [place] [address] CHEST PA AND LATERAL Observed: 12/08/2017 Status: F Source: [place] 7:49 AM [facility] REPOSITORY [facility] Imaging Services [address] [place] [address] Chest PA and Lateral MR#: [id number] Acct: [id number] Name: JILL AYALA Rep #: [id number] : 1955 M 62 From: Ashley Harrison MD PCP: AC De La Fuente Status: ADM IN Study: Chest PA and Lateral Date of Exam: 12/08/17 Exam# [id number] Ordering Dr: Feroz Tomlinson DO STUDY: X-RAY CHEST REASON FOR EXAM: Male, 62 years old. Shortness of breath and hypoxia TECHNIQUE: PA and lateral views of the chest. COMPARISON: December 05, 2017 chest x-ray FINDINGS: There is minimal groundglass opacity mild increase interstitial markings. There is no demonstrated pleural abnormality. There is mild cardiac enlargement. Normal mediastinum and deana. Normal visualized pulmonary arteries. There is atherosclerotic tortuosity of the aortic arch and descending thoracic aorta. There are diffuse degenerative changes of the visualized thoracic spine. Normal visualized ribs, clavicles, and shoulders. There is no demonstrated abnormality of the visualized soft tissue structures of the upper abdomen. RAD/Chest PA and Lateral IMPRESSION: Findings is suspicious for possible mild interstitial edema. Cardiomegaly. Tortuous aorta. Electronically Signed: Ashley Harrison MD at 16:53 EDT Tel , Service support , CC: AC Cope; Feroz Tomlinson DO Newspaper Inserter: Signed CBC-COMPLETE BLOOD CNT Collected: 12/08/2017 Status: F Source: [place] NO DIFF 6:15 AM [facility] REPOSITORY TYPE CODE TESTS RESULT OUT OF RANGE REFERENCE UNITS LAB L100.1000 4.4-11.0 K/mm3 Normal WBC 7.9 LAB L100.1200 4.6-6.2 M/mm3 Low RBC 3.67 LAB L100.1300 13.0-16.5 g/dl Low HGB 11.0 LAB L100.1400 40-54 % Low HCT 32.9 LAB L100.1500 80-94 fL Normal MCV 89.6 LAB L100.1600 27.0-32.0 pg Normal MCH 30.0 LAB L100.1700 32-36 g/gl Normal MCHC 33.4 LAB L100.1810 11.6-14.6 % High RDW CV 14.7 LAB L100.1820 35.1-43.9 fl High RDW SD 47.4 LAB L100.1900 150-450 K/mm3 Normal PLT 244 LAB L100.2000 6.2-12.0 fl Normal MPV 10.5 Performed By: #### L100.0500 #### [facility] [address] [place], [place], [address] BASIC METABOLIC Collected: 12/08/2017 Status: F Source: [place] PROFILE (BMP) 6:15 AM [facility] REPOSITORY TYPE CODE TESTS RESULT OUT OF RANGE REFERENCE UNITS LAB L501.0100 74-106 mg/dL High GLU 245 Result Comment: Glucose result greater than or equal to 200 mg/dL suggests DIABETES MELLITUS per A.D.A. criteria. Please note revised GLUCOSE reference range effective 2017. LAB L501.1000 7-18 mg/dL Normal BUN 11 LAB L501.1100 0.70-1.30 mg/dL Low CREAT,SERUM 0.59 Result Comment: The validity of the calculated GFR AND GFRAA in patients over 70 years has not been determined. Clinical correlation is essential. LAB L501.1110 >60 mL/min Normal EST GFR 148 Result Comment: Non- GFR Calc LAB L501.1115 >60 mL/min Normal EST GFR - AA 179 Result Comment: GFR Calc LAB L501.1255 ml/min Normal Estimated CRCL 150.93 LAB L501.1300 10-20 RATIO BUN/CRE Normal 18.6 LAB L501.2200 8.5-10 mg/dL .1 CA Normal 8.8 LAB L501.5300 136-14 mmol/L 5 NA Normal 138 LAB L501.5600 3.5-5. mmol/L 1 K Normal 3.8 LAB L501.5900 98-107 mmol/L CL Normal 106 LAB L501.6100 21.0-3 mmol/L 2.0 CO2 Normal 24.0 LAB L501.6200 5-15 GAP Normal 8 Performed By: #### L500.2500 #### [facility] [address] [place], [address] BEDSIDE GLUCOSE Collected: 12/07/2017 Status: F Source: DULCE 10:20 PM [facility] REPOSITORY TYPE CODE TESTS RESULT OUT OF REFERENCE UNITS RANGE LAB L501.080 70-110 mg/dL High BEDSIDE GLU 243 Result Comment: MANAGEMENT OF PATIENT CARE PER NURSING PROTOCOL Performed By: #### L501.080 #### [facility] Point of Care [address] [place] [address] BEDSIDE GLUCOSE Collected: 12/07/2017 Status: F Source: DULCE 4:29 PM [facility] REPOSITORY TYPE CODE TESTS RESULT OUT OF REFERENCE UNITS RANGE LAB L501.080 70-110 mg/dL High BEDSIDE GLU 311 Result Comment: MANAGEMENT OF PATIENT CARE PER NURSING PROTOCOL Performed By: #### L501.080 #### [facility] Point of Care [address] [place] [address] BEDSIDE GLUCOSE Collected: 12/07/2017 Status: F Source: DULCE 11:59 AM [facility] REPOSITORY TYPE CODE TESTS RESULT OUT OF REFERENCE UNITS RANGE LAB L501.080 70-110 mg/dL High BEDSIDE GLU 207 Result Comment: MANAGEMENT OF PATIENT CARE PER NURSING PROTOCOL Performed By: #### L501.080 #### [facility] Point of Care [address] [place] [address] BEDSIDE GLUCOSE Collected: 12/07/2017 Status: F Source: DULCE 7:57 AM [facility] REPOSITORY TYPE CODE TESTS RESULT OUT OF REFERENCE UNITS RANGE LAB L501.080 70-110 mg/dL High BEDSIDE GLU 237 Result Comment: MANAGEMENT OF PATIENT CARE PER NURSING PROTOCOL Performed By: #### L501.080 #### [facility] Point of Care [address] [place] [address] CBC-COMPLETE BLOOD CNT Collected: 12/07/2017 Status: F Source: DULCE NO DIFF 6:00 AM [facility] REPOSITORY TYPE CODE TESTS RESULT OUT OF RANGE REFERENCE UNITS LAB L100.1000 4.4-11.0 K/mm3 Normal WBC 8.5 LAB L100.1200 4.6-6.2 M/mm3 Low RBC 3.68 LAB L100.1300 13.0-16.5 g/dl Low HGB 11.0 LAB L100.1400 40-54 % Low HCT 33.5 LAB L100.1500 80-94 fL Normal MCV 91.0 LAB L100.1600 27.0-32.0 pg Normal MCH 29.9 LAB L100.1700 32-36 g/gl Normal MCHC 32.8 LAB L100.1810 11.6-14.6 % High RDW CV 15.1 LAB L100.1820 35.1-43.9 fl High RDW SD 49.4 LAB L100.1900 150-450 K/mm3 Normal PLT 218 LAB L100.2000 6.2-12.0 fl Normal MPV 10.6 Performed By: #### L100.0500 #### [facility] [address] [place], [address] BASIC METABOLIC Collected: 12/07/2017 Status: F Source: [place] PROFILE (BMP) 6:00 AM [facility] REPOSITORY TYPE CODE TESTS RESULT OUT OF RANGE REFERENCE UNITS LAB L501.0100 74-106 mg/dL High GLU 206 Result Comment: Glucose result greater than or equal to 200 mg/dL suggests DIABETES MELLITUS per A.D.A. criteria. Please note revised GLUCOSE reference range effective 2017. LAB L501.1000 7-18 mg/dL Normal BUN 9 LAB L501.1100 0.70-1.30 mg/dL Low CREAT,SERUM 0.63 Result Comment: The validity of the calculated GFR AND GFRAA in patients over 70 years has not been determined. Clinical correlation is essential. LAB L501.1110 >60 mL/min Normal EST GFR 138 Result Comment: Non- GFR Calc LAB L501.1115 >60 mL/min Normal EST GFR - AA 167 Result Comment: GFR Calc LAB L501.1255 ml/min Normal Estimated CRCL 141.35 LAB L501.1300 10-20 RATIO BUN/CRE Normal 14.3 LAB L501.2200 8.5-10 mg/dL Low .1 CA 8.3 LAB L501.5300 136-14 mmol/L 5 NA Normal 140 LAB L501.5600 3.5-5. mmol/L 1 K Normal 3.6 LAB L501.5900 98-107 mmol/L CL Normal 107 LAB L501.6100 21.0-3 mmol/L 2.0 CO2 Normal 24.0 LAB L501.6200 5-15 GAP Normal 9 Performed By: #### L500.2500 #### [facility] [address] [facility] [address] BEDSIDE GLUCOSE Collected: 12/06/2017 Status: F Source: DULCE 9:37 PM [facility] REPOSITORY TYPE CODE TESTS RESULT OUT OF REFERENCE UNITS RANGE LAB L501.080 70-110 mg/dL High BEDSIDE GLU 219 Result Comment: MANAGEMENT OF PATIENT CARE PER NURSING PROTOCOL Performed By: #### L501.080 #### [facility] Point of Care [address] [place] [address] BEDSIDE GLUCOSE Collected: 12/06/2017 Status: F Source: DULCE 5:14 PM [facility] REPOSITORY TYPE CODE TESTS RESULT OUT OF REFERENCE UNITS RANGE LAB L501.080 70-110 mg/dL High BEDSIDE GLU 214 Result Comment: MANAGEMENT OF PATIENT CARE PER NURSING PROTOCOL Performed By: #### L501.080 #### [facility] Point of Care [address] [place] [address] BEDSIDE GLUCOSE Collected: 12/06/2017 Status: F Source: DULCE 11:47 AM [facility] REPOSITORY TYPE CODE TESTS RESULT OUT OF REFERENCE UNITS RANGE LAB L501.080 70-110 mg/dL High BEDSIDE GLU 319 Result Comment: MANAGEMENT OF PATIENT CARE PER NURSING PROTOCOL Performed By: #### L501.080 #### [facility] Point of Care [address] [place] [address] BASIC METABOLIC Collected: 12/06/2017 Status: F Source: DUL[place] PROFILE (BMP) 7:10 AM [facility] REPOSITORY TYPE CODE TESTS RESULT OUT OF RANGE REFERENCE UNITS LAB L501.0100 74-106 mg/dL High GLU 196 Result Comment: Fasting Glucose result greater than or equal to 126 mg/dL suggests DIABETES MELLITUS per A.D.A. criteria. Please note revised GLUCOSE reference range effective 2017. LAB L501.1000 7-18 mg/dL Normal BUN 12 LAB L501.1100 0.70-1.30 mg/dL Low CREAT,SERUM 0.61 Result Comment: The validity of the calculated GFR AND GFRAA in patients over 70 years has not been determined. Clinical correlation is essential. LAB L501.1110 >60 mL/min Normal EST GFR 142 Result Comment: Non- GFR Calc LAB L501.1115 >60 mL/min Normal EST GFR - AA 172 Result Comment: GFR Calc LAB L501.1255 ml/min Normal Estimated CRCL 145.98 LAB L501.1300 10-20 RATIO BUN/CRE Normal 19.6 LAB L501.2200 8.5-10 mg/dL Low .1 CA 8.4 LAB L501.5300 136-14 mmol/L 5 NA Normal 139 LAB L501.5600 3.5-5. mmol/L 1 K Normal 3.6 LAB L501.5900 98-107 mmol/L CL Normal 106 LAB L501.6100 21.0-3 mmol/L 2.0 CO2 Normal 22.0 LAB L501.6200 5-15 GAP Normal 11 Performed By: #### L500.2500 #### [facility] [address] [place], [address] CBC W/DIFF, AUTOMATED Collected: 12/06/2017 Status: F Source: [place] 7:10 AM [facility] REPOSITORY TYPE CODE TESTS RESULT OUT OF RANGE REFERENCE UNITS LAB L100.1000 4.4-11.0 K/mm3 Normal WBC 10.7 LAB L100.1200 4.6-6.2 M/mm3 Low RBC 4.07 LAB L100.1300 13.0-16.5 g/dl Low HGB 11.9 LAB L100.1400 40-54 % Low HCT 37.3 LAB L100.1500 80-94 fL Normal MCV 91.6 LAB L100.1600 27.0-32.0 pg Normal MCH 29.2 LAB L100.1700 32-36 g/gl Low MCHC 31.9 LAB L100.1810 11.6-14.6 % High RDW CV 15.6 LAB L100.1820 35.1-43.9 fl High RDW SD 52.2 LAB L100.1900 150-450 K/mm3 Normal PLT 236 LAB L100.2000 6.2-12.0 fl Normal MPV 10.7 LAB L100.2100 47-70 % High NEUT% 71.1 LAB L100.2200 19-41 % Normal LY% 20.1 LAB L100.2300 0-10 % Normal MONO% 8.0 LAB L100.2400 0-5 % Normal EO% 0.2 LAB L100.2500 0-1 % Normal BASO% 0.3 LAB L100.2550 0.0-0.9 % Normal IM GRAN % 0.300 Result Comment: IG% - Immature Granulocytes (promyelocytes, myelocytes and metamyelocytes) > 1% indicates that a LEFT SHIFT is Present. LAB L100.2620 2.0-7.7 X10 3/uL Normal Absolute Neut 7.6 LAB L100.2720 0.83-4.51 X10 3/ul Normal Absolute Lymph 2.15 Performed By: #### L100.0100 #### [facility] [address] [place], [address] BEDSIDE GLUCOSE Collected: 12/06/2017 Status: F Source: SCR[place] 6:09 AM [facility] REPOSITORY TYPE CODE TESTS RESULT OUT OF REFERENCE UNITS RANGE LAB L501.080 70-110 mg/dL High BEDSIDE GLU 207 Result Comment: MANAGEMENT OF PATIENT CARE PER NURSING PROTOCOL Performed By: #### L501.080 #### [facility] Point of Care [address] [place] [address] EMERGENCY DEPARTMENT Observed: 12/06/2017 Status: F Source: [place] SUMMARY 12:30 AM [facility] REPOSITORY [facility] Medical Records Department [address] [place] [address] Emergency Department Summary 12/05/17 1855 MR#: [id number] Acct: [id number] Name: JILL AYALA Rep #: [id number] : 1955 62 From: Derek Ramirez MD PCP: JOYA De La FuenteP- Status: ADM IN - ER Visit Summary Date of Service: 12/05/17 Chief Complaint: Fever and mental status change History of Present Illness: The patient is a 62 M history of insulin pen diabetes, encephalopathy and hydrocephalus. Recent admission and discharge from the hospital for mental status change. He was doing better yesterday and then today was lethargic at home and much worse. He states that he did have by vertebroplasty done years ago and really does not walk much anymore basically gets around by wheelchair. She denies any cough. No falls or trauma. He is currently on no blood thinners. He did have an extensive workup within the last week including CAT scan and MRI of his brain. He also was evaluated by neurology. Physical Examination: Older male vital signs are stable he does have a fever of 1032. Pulse ox 96% on room air no signs of hypoxia. HEENT exam his eyes are open. His pupils are equal reactive light. No facial droop. His dry mucous membranes. Neck nontender. No meningismus. Lungs clear to auscultation bilaterally. Heart tachycardic no murmur. Abdomen is soft and nontender. Normal bowel sounds nondistended. Extremities have no deformities. He does squeeze my hands to commands. Neurologically his eyes are open he is awake. Currently is not talking. And he only follows very limited commands. Overall his mental status is decreased. Skin there is no rashes but he is warm to touch. Test Results: Chest x-ray portable one view appears to be a left lower lobe infiltrate consistent with a left lower lobe hospital-acquired pneumonia with his recent admission. This is read by the radiologist reviewed by me. EKG is a sinus tachycardia rate of 106 with PACs. White count 12.9 with an H AND H of 13 and 42. BMP unremarkable. Normal creatinine and gap. Liver enzymes normal. PT/INR normal. UA is pending. Troponins normal. Lactic acid 1.6. Emergency Department Course and Treatment: Patient will be treated with IV fluids, p.o. Tylenol and worked up for fever. Treatment Plan: Repeat exam the patient is doing much better at 2034. Is much more awake alert and talkative. He will be admitted for a healthcare acquired pneumonia. Started on parenteral antibiotics. I will speak to the hospitalist about admission. Disposition: [] Impression: Acute fever Acute left lower lobe pneumonia (healthcare acquired pneumonia) Mental status change History of hydrocephalus History of insulin-dependent diabetes This note was generated with [employer] dictation software. It may contain incorrect words, spelling, and punctuation that were not noted in review of the chart prior to signing ED Disposition - Plan for ED Patient: Chief Complaint: Mental Status Change What to do if you have Problems For any increased pain, shortness of breath, bleeding, nausea or vomiting, chest pain, or any unexpected problems, contact your Primary Care Provider. Call [facility] ([phone]) or report to the closest Emergency Room. Call 911 if necessary. 12/06/17 0030 <Electronically signed by Derek Ramirez MD> Date Derek Ramirez MD Cosigner Signature (If Indicated): Date CC: AC Cope Observed: 12/05/2017 Status: F Source: [place] LEGIONELLA ANTIGEN 11:00 PM [facility] URINE REPOSITORY Specimen Source: URINE, MEJIA Legionella, UR Legionella Antigen result interpretation: Negative Presumptive negative for Legionella pneumophila serogroup 1 antigen in urine, suggesting no recent or current infection. Legionella Ag, Urine Negative (See interpretation below) Performed By: #### M300.4500 #### [facility] [address] [facility] [place], [address] STREP Observed: 12/05/2017 Status: F Source: [place] PNEUMONIAE ANTIG(UR,CSF) 11:00 PM [facility] REPOSITORY S pneumo Ag URINE INTERPRETATION Negative Urine Presumptive negative for pneumococcal pneumonia, suggesting no current or recent pneumococcal infection. Infection due to S pneumoniae cannot be ruled out since the antigen present in the sample may be below the detection limit of the test. Strep pneumo Test Negative URINE (See interpretation below) Performed By: #### M300.4600 #### [facility] [address] [place], [address] BEDSIDE GLUCOSE Collected: 12/05/2017 Status: F Source: [place]CR[place]ON 10:30 PM [facility] REPOSITORY TYPE CODE TESTS RESULT OUT OF REFERENCE UNITS RANGE LAB L501.080 70-110 mg/dL High BEDSIDE GLU 196 Result Comment: MANAGEMENT OF PATIENT CARE PER NURSING PROTOCOL Performed By: #### L501.080 #### [facility] Point of Care [address] [place] [address] HISTORY AND PHYSICAL Observed: 12/05/2017 Status: F Source: [place] EXAM 9:25 PM [facility] REPOSITORY [facility] Medical Records Department [address] [place] [address] History and Physical 12/05/172043 MR#: [id number] Acct: [id number] Name: JILL AYALA Rep #: [id number] : 1955 62 From: Meme Donato PCP: AC De La Fuente Status: ADM IN Location: [place] [address] Problem List (1) Anxiety and depression Status: Chronic (2) HTN (hypertension) Status: Chronic Qualifiers: Hypertension type: essential hypertension Qualified Code(s): I10 - Essential (primary) hypertension (3) GERD (gastroesophageal reflux disease) Status: Chronic Qualifiers: Esophagitis presence: esophagitis presence not specified Qualified Code(s): K21.9 - Gastro-esophageal reflux disease without esophagitis (4) Pneumonia Status: Acute Qualifiers: Pneumonia type: due to unspecified organism Laterality: left Lung location: lower lobe of lung Qualified Code(s): J18.1 - Lobar pneumonia, unspecified organism (5) Right leg DVT Status: Acute (6) Encephalopathy Status: Acute (7) Type II diabetes mellitus Status: Chronic Qualifiers: Diabetes mellitus detention insulin use: with detention use Diabetes mellitus complication status: with unspecified complications Qualified Code(s): E11.8 - Type 2 diabetes mellitus with unspecified complications; Z79.4 - intermediate designer (current) use of insulin (8) Chronic back pain Status: Chronic Qualifiers: Back pain location: back pain in unspecified location Back pain laterality: unspecified Qualified Code(s): M54.9 - Dorsalgia, unspecified; G89.29 - Other chronic pain (9) Osteogenesis imperfecta Status: Chronic History of Present Illness Date of Admission: 12/05/17 Chief Complaint: Mental status change, fever, hypoxic The patient is a 62 y/o M w/ PMHx: Anxiety and Depression, HTN, GERD, Low Back Pain s/p kyphoplasty wheelchair bound, Diabetes mellitus type II, Chronic Back Pain, Osteogenesis imperfecta, recent evaluation 12/01/17-12/02/17 with acute encephalopathy felt likely metabolic complicated by polypharmacy with overdose of muscle relaxants and high dose narcotics, evaluated also per Neurology at that time who now re-presents to the [facility] ED on 12/05/17 with again metal status change, lethargic, febrile starting today, noted per family to be improved, noted initially 80% on RA for EMS upon transport. Family notes that he had low grade temperatures over the last 1-2 days also and has been very weak. He has had mild cough but no marked sputum production. In the ED work-up included T 102.7, HR 106-->96, BP 147/76-->114/86, RR 20, 97% on 2L NC, CBC w/ WBC 12.9, Hgb 13.5, Plts 273 with L shift, unremarkable coags, CMP w/ glucose 158, trop < 0.02, UA w/ evidence dehydration, pending complete UA, UCx and Bld Cx x 2 per ED pending. In the ED patient administered tylenol, NS, rocephin, azithromycin. Past Medical History Past Medical History (Chronic Problems): Chronic Problems Anxiety and depression (Chronic) HTN (hypertension) (Chronic) GERD (gastroesophageal reflux disease) (Chronic) Low back pain (Chronic) Type II diabetes mellitus (Chronic) Chronic back pain (Chronic) Osteogenesis imperfecta (Chronic) Allergies fentanyl Adverse Reaction (Verified 12/05/17 18:26) lethargic, unresponsive, hallucinations morphine Adverse Reaction (Verified 12/05/17 18:26) lethargic, unresponsive, hallucinations IVP DYE Allergy (Uncoded 12/05/17 18:26) Anaphylaxis Home Medications: Ambulatory Orders Medication Instructions Recorded Surgical History: appendectomy, total knee arthroplasty, - - Hiatal hernia surgery. Psychiatric History: Anxiety, Depression Lives: Spouse/ Significant Other Smoking Status: Former smoker Tobacco Use: Non-smoker Alcohol: None Drugs: None - *Family History Maternal History Items: - - No coronary artery disease. Alcohol abuse. Paternal History Items: Stroke Review of Systems Constitutional: Reports: Anorexia, Chills, Fever, Malaise, Weakness, Fatigue. Denies: Weight Change HEENT: Denies: Head Aches, Sinus Congestion, Sinus Drainage Cardiovascular: Denies: Chest Pain, Palpitations Respiratory: Reports: Cough, Shortness of Breath, Shortness of breath at rest, Shortness of breath upon exertion. Denies: Sputum production, Wheezing Gastrointestinal: Reports: Nausea. Denies: Abdominal Pain, Vomiting Genitourinary: Denies: Dysuria Musculoskeletal: Reports: Back Pain. Denies: Joint Pain, Joint Tenderness Skin: Denies: Rash, Wounds Neurological: Reports: Confusion. Denies: Focal weakness, Numbness, Tingling Psychiatric: Reports: Anxiety, Depression. Denies: Homicidal Ideations, Suicidal Ideations Hematologic/ Lymphatic: Denies: Easy Bruising, Easy Bleeding VTE Information - Inpt Only VTE Present on Admission: No VTE Mechan Device Prophylaxis: SCD's VTE Pharm Prophylaxis ordered?: Yes Patient Problems: Active and Suspected Problems Pneumonia (Acute) Subjective: Seated upright in the ED bed, fatigued, hard of hearing, improved from initial presentation. Objective: Physical Examination: General: awake now, more alert than initial presentation, now oriented x 3 and cooperative, seated upright in the ED bed in no apparent distress, fatigued appearing. Skin: normal color, turgor, no icterus, cyanosis. HEENT: AT/NC, EOMI, PERRLA, severely dry MM, no carotid bruits or JVD noted. Lungs: Diminished BS BL, > L mildly coarse L mid-base, mild effort, no wheezing. Heart: Tachycardic with regular rhythm; no gallop, rub audible. Abdomen: soft, overweight, NTTP, ND, normal BS, no HSM. Extremities: no cyanosis, clubbing, or edema. Neurological: patient awake, alert, oriented x 3; cognitive function improved, nearly baseline intact but decreased from baseline; pupils equally reactive to light and accomodation; cranial nerves II-XII grossly normal, moving all 4 extremities, no focal deficits, strength severely globally decreased secondary to acute presentation. Psychiatric: affect appears flat, fatigued, no acute evidence of depressive or anxiety feelings. - Physical Exam Vital Signs Temp Pulse Resp BP Pulse Ox 102.7 F H 103 H 24 H 153/81 H 99 12/05/17 19:24 12/05/17 19:24 12/05/17 19:24 12/05/17 19:24 12/05/17 19:24 Oxygen Flow Rate (L/min) 2 Oxygen Delivery Method Nasal Cannula Weight: 229 lb 8.019 oz Body Mass Index (BMI) 29.5 Finger Stick Blood Glucose 164 Laboratory Tests Past 24 Hrs WBC 12.9 H RBC 4.61 Hgb 13.5 Hct 42.0 MCV 91.1 MCH 29.3 MCHC 32.1 RDW 15.6 H RDW Differential 52.1 H Assessment/Plan Active and Suspected Problems Pneumonia (Acute) The patient is a 62 y/o M w/ PMHx: Anxiety and Depression, HTN, GERD, Low Back Pain s/p kyphoplasty wheelchair bound, Diabetes mellitus type II, Chronic Back Pain, Osteogenesis imperfecta, recent evaluation 12/01/17-12/02/17 with acute encephalopathy felt likely metabolic complicated by polypharmacy with overdose of muscle relaxants and high dose narcotics, evaluated also per Neurology at that time who now re-presents to the [facility] ED on 12/05/17 with again metal status change, lethargic, febrile starting today, noted per family to be improved, noted initially 80% on RA for EMS upon transport. (1) Acute Encephalopathy and Sepsis secondary to Acute Hypoxic Respiratory Failure (increased RR, O2 80%) secondary to HCAP Pneumonia: CXR in the ED w/ LLL infiltrate. Admission CBC w/ 12.9 with L shift. Will admit to [facility], maintain on oxygen with wean as tolerated to room air, continue ATC duonebs, PRN albuterol, maintained on IV Rocephin and Azithromycin, HOB, IS parameters w/ pending sputum cultures and urine antigens. Bld cx x 2 obtained in the ED. Will obtain AM oxygenation trial for discharge planning daily. (2) Diabetes mellitus type II: Hold oral home regimen, continue home insulin regimen, ADA diet, accu checks w/ ISS. (3) Hypertension: Given elevated SG, likely dehydrated will hold lasix, PRN Hydralazine. (4) Hyperlipidemia: Continue home tricor regimen. (5) Anxiety and Depression: Maintain on home regimen sertraline. (6) GERD: Famotidine. (7) Chronic Back Pain: s/p kyphoplasty, uses wheelchair, fall precautions, PT and OT assessment, position changes, continue home regimen but monitor cautiously given prior lethargy. (8) Hx prior DVT: Maintain on prophylaxis as noted. (9) DVT Prophylaxis: SCDs, lovenox. Code Visit Inpatient E AND M: [id number] Init Hosp L3 12/05/177 <Electronically signed by Meme Donato > Date Meme Donato Cosigner Signature: Date (if applicable) CC: SCHOOL SUPERINTENDENT-EULALIA Cope; Meme Donato Signed URINALYSIS, COMPLETE Collected: 12/05/2017 Status: F Source: [place] 7:24 PM [facility] REPOSITORY Order Comment: Order Date: 12/05/17 How was Urine Obtained? GREASE CUP FILLER TO SPECIFY TYPE CODE TESTS RESULT OUT OF RANGE REFERENCE UNITS LAB L400.3000 Yellow COLOR Normal Yellow LAB L400.3050 Clear Normal CLARITY Sl. Cloudy LAB L400.3200 Normal mg/dl High GLUCOSE, UR 100 LAB L400.3300 Negative mg/dL Normal BILIRUBIN URINE Negative LAB L400.3400 Negative mg/dl High 15 KETONE UR LAB L400.3465 1.002-1.030 Normal SP.GR. DIPSTX 1.025 LAB L400.3550 5.0 - 8.0 pH UR Normal 5.0 LAB L400.3600 Negative mg/dl High PROT DIPSTX 100 LAB L400.3700 Normal mg/dl Normal UROBILI Normal LAB L400.3750 Negative Normal NITRITE UR Negative LAB L400.3780 Negative /ul High OCCULT BLOOD-UR 250 LAB L400.3800 Negative /ul High LEUK ESTERASE 500 LAB L400.4050 0-5 /hpf WBC Normal 10-25 SEEN LAB L400.4100 0-5 /hpf Normal RBC-UA 50-100 SEEN LAB L400.4150 0-5 /hpf SQUAM Normal EPI 5-10 SEEN LAB L400.4300 None Seen /hpf 1+ Normal BACTERIA LAB L400.4350 <or=2+ /hpf 0 Normal MUCUS, URINE SEEN LAB L400.4900 2+ Normal AMORPHOUS Performed By: #### L400.0001 #### [facility] [address] [place], [place], [address] Observed: 12/05/2017 Status: F Source: [place] CULTURE, URINE 7:24 PM [facility] REPOSITORY Urine Culture Mejia cath urine is not recommended. Growth may represent distal urethral anabel. ORGANISM 1: Staphylococcus hominis hominis [place] Count 50,000-80,000 Staphylococcus hominis hominis: REACTION Benzylpenicillin NF >=0.5 R Cefoxitin *NF + Inducable Clindamycin Resistan - Gentamicin $ <=0.5 S Levofloxacin $ <=0.12 S Nitrofurantoin $ <=16 S Oxacillin NF >=4 R Rifampin $$ <=0.5 S Tetracycline NF 2 S Vancomycin $ 1 S (NF) indicates non-formulary drug at [facility]. Approval by Infectious Disease Specialist required before non-formulary drugs may be ordered and/or dispensed. * CLSI guidelines does not recommend testing of cephalosporins. This interpretation is deduced from Beta-lactam/penicillin results. Performed By: #### M100.0650 #### [facility] [address] [place], [place], [address] CHEST 1 VIEW Observed: 12/05/2017 Status: F Source: [place] (PORTABLE) 6:55 PM [facility] REPOSITORY [facility] Imaging Services [address] [place] [address] Chest 1 View (Portable) MR#: [id number] Acct: [id number] Name: JILL AYALA Rep #: [id number] : 1955 M 62 From: Frandy Young MD PCP: Status: PRE ER Study: Chest 1 View (Portable) Date of Exam: 12/05/17 Exam# [id number] Ordering Dr: Derek Ramirez MD STUDY: X-RAY CHEST REASON FOR EXAM: Male, 62 years old. MENTAL STATUS CHANGE TECHNIQUE: Single frontal view of the chest. COMPARISON: 9 FINDINGS: Chronic appearing increased interstitial lung markings. There is an elevated right hemidiaphragm. There is no demonstrated pleural abnormality. Left lower lobe infiltrate suggesting an early pneumonia. Enlarged heart size. Normal mediastinum and deana. Normal visualized pulmonary arteries. There is atherosclerotic calcification of the aortic arch with tortuosity. There are diffuse degenerative changes of the visualized thoracic spine. There is degenerative osteoarthritis of the bilateral shoulders. There is no demonstrated abnormality of the visualized soft tissue structures of the upper abdomen. RAD/Chest 1 View (Portable) IMPRESSION: Left lower lobe infiltrate suggesting an early pneumonia. Electronically Signed: Frandy Young MD at 19:38 EDT , Service support , CC: Derek Ramirez MD Newspaper Inserter: Signed Observed: 12/05/2017 Status: F Source: [place] CULTURE, BLOOD (WB) 6:40 PM [facility] REPOSITORY BC No growth in 5 days. Performed By: #### M200.1000 #### [facility] [place], [address] CBC W/DIFF, AUTOMATED Collected: 12/05/2017 Status: F Source: [place] 6:30 PM [facility] REPOSITORY TYPE CODE TESTS RESULT OUT OF RANGE REFERENCE UNITS LAB L100.1000 4.4-11.0 K/mm3 High WBC 12.9 LAB L100.1200 4.6-6.2 M/mm3 Normal RBC 4.61 LAB L100.1300 13.0-16.5 g/dl Normal HGB 13.5 LAB L100.1400 40-54 % Normal HCT 42.0 LAB L100.1500 80-94 fL Normal MCV 91.1 LAB L100.1600 27.0-32.0 pg Normal MCH 29.3 LAB L100.1700 32-36 g/gl Normal MCHC 32.1 LAB L100.1810 11.6-14.6 % High RDW CV 15.6 LAB L100.1820 35.1-43.9 fl High RDW SD 52.1 LAB L100.1900 150-450 K/mm3 Normal PLT 273 LAB L100.2000 6.2-12.0 fl Normal MPV 10.7 LAB L100.2100 47-70 % High NEUT% 75.6 LAB L100.2200 19-41 % Low LY% 15.4 LAB L100.2300 0-10 % Normal MONO% 8.4 LAB L100.2400 0-5 % Normal EO% 0.2 LAB L100.2500 0-1 % Normal BASO% 0.2 LAB L100.2550 0.0-0.9 % Normal IM GRAN % 0.200 Result Comment: IG% - Immature Granulocytes (promyelocytes, myelocytes and metamyelocytes) > 1% indicates that a LEFT SHIFT is Present. LAB L100.2620 2.0-7.7 X10 3/uL High Absolute Neut 9.7 LAB L100.2720 0.83-4.51 X10 3/ul Normal Absolute Lymph 1.98 Performed By: #### L100.0100 #### [facility] [address] [place], [address] COMPREHENSIVE METABOLIC Collected: 12/05/2017 Status: F Source: [facility] 6:30 PM [facility] REPOSITORY Order Comment: 'TROP' Serial specimen #1, #2, #3, or #4: 1 TYPE CODE TESTS RESULT OUT OF RANGE REFERENCE UNITS LAB L501.0100 74-106 mg/dL High GLU 158 Result Comment: Fasting Glucose result greater than or equal to 126 mg/dL suggests DIABETES MELLITUS per A.D.A. criteria. Please note revised GLUCOSE reference range effective 2017. LAB L501.1000 7-18 mg/dL Normal BUN 14 LAB L501.1100 0.70-1.30 mg/dL Normal CREAT,SERUM 0.87 Result Comment: The validity of the calculated GFR AND GFRAA in patients over 70 years has not been determined. Clinical correlation is essential. LAB L501.1110 >60 mL/min Normal EST GFR 95 Result Comment: Non- GFR Calc LAB L501.1115 >60 mL/min Normal EST GFR - AA 115 Result Comment: GFR Calc LAB L501.1255 ml/min Normal Estimated CRCL 102.36 LAB L501.1300 10-20 RATIO BUN/CRE Normal 16.2 LAB L501.1500 6.4-8. g/dL 2 T PROT Normal 7.9 LAB L501.1800 3.2-5. g/dL 0 ALB Normal 3.6 LAB L501.1950 2.2-4. g/dL High 2 GLOB 4.3 LAB L501.2000 0.9-2. RATIO Low 4 A/G 0.8 LAB L501.2200 8.5-10 mg/dL .1 CA Normal 9.5 LAB L501.4100 15-37 U/L Low AST 11 LAB L501.4305 45-117 U/L ALK P Normal 59 LAB L501.4405 16-61 U/L ALT Normal 18 Result Comment: Please note revised ALT reference range effective 2017. LAB L501.4600 0.20-1.00 mg/dL Normal T BILI 0.60 LAB L501.5300 136-145 mmol/L Normal NA 139 LAB L501.5600 3.5-5.1 mmol/L Normal K 3.9 LAB L501.5900 98-107 mmol/L Normal CL 104 LAB L501.6100 21.0-32.0 mmol/L Normal CO2 25.0 LAB L501.6200 5-15 Normal GAP 10 Performed By: #### L500.4050, L501.4010 #### [facility] [address] [place], [address] TROPONIN-I Collected: 12/05/2017 Status: F Source: [place] 6:30 PM [facility] REPOSITORY Order Comment: 'TROP' Serial specimen #1, #2, #3, or #4: 1 TYPE CODE TESTS RESULT OUT OF RANGE REFERENCE UNITS LAB L501.4010 <0.06 ng/mL Normal < 0.02 TROPONIN-I Result Comment: TROPONIN-I EXPECTED VALUES <0.05 NEGATIVE 0.06 - 0.59 AT RISK OF NC > OR = 0.60 SUGGEST NC Performed By: #### L500.4050, L501.4010 #### [facility] [address] [place], [address] LACTIC ACID Collected: 12/05/2017 Status: F Source: [place] 6:30 PM [facility] REPOSITORY Order Comment: Yes/No query for Sepsis Lactate Rule Y TYPE CODE TESTS RESULT OUT OF RANGE REFERENCE UNITS LAB L503.6005 0.4-2.0 mmol/L Normal LACTIC ACID 1.6 Performed By: #### L503.6005 #### [facility] [address] [place], [address] PROTHROMBIN TIME W/INR Collected: 12/05/2017 Status: F Source: [place] 6:30 PM [facility] REPOSITORY TYPE CODE TESTS RESULT OUT OF RANGE REFERENCE UNITS LAB L300.4150 11.7-14.9 SECONDS Normal PROTIME 13.8 LAB L300.4200 Normal INR 1.1 Performed By: #### L300.3900, L300.4310 #### [facility] [address] [place], [address] PARTIAL THROMBOPLAST Collected: 12/05/2017 Status: F Source: [place] TIME 6:30 PM [facility] REPOSITORY TYPE CODE TESTS RESULT OUT OF RANGE REFERENCE UNITS LAB L300.4310 24.1-36.2 Seconds Normal PTT 34.2 Performed By: #### L300.3900, L300.4310 #### [facility] [address] [place], [address] MAGNESIUM Collected: 12/05/2017 Status: F Source: [place] 6:30 PM [facility] REPOSITORY TYPE CODE TESTS RESULT OUT OF RANGE REFERENCE UNITS LAB L501.5200 1.6-2.6 mg/dL Normal MG 1.7 Result Comment: Please note revised Magnesium reference range effective 2017. Performed By: #### L501.5200 #### [facility] [address] [place], [address] Observed: 12/05/2017 Status: F Source: [place] CULTURE, BLOOD (WB) 6:30 PM [facility] REPOSITORY BC No growth in 5 days. Performed By: #### M200.1000 #### [facility] [address] [place], [address] CONSULTATION Observed: 12/05/2017 Status: F Source: [place] 1:48 PM [facility] REPOSITORY [facility] Medical Records Department [address] [place] [address] Consultation 12/01/17 1507 MR#: [id number] Acct: [id number] Name: JILL AYALA Rep #: [id number] : 1955 62 From: Carlo Wesley MD PCP: Status: DIS RITA Y Location: [facility] PV228-8 Problem List (1) Encephalopathy Status: Acute Reason for Consult Date of Consultation: 12/01/17 Reason for Consultation: AMS History of Present Illness: The patient is a 62 year old CM with PMH HLD, DM, depression, H/O encephalopathy, H/O DVT per documentation admitted with AMS. History is obtained from the patient and medical records and documentation. Patient is a poor historian. Per he was doing physical therapy on Friday morning (11/29/17), then suddenly was shaking, found to have SBP >200s at home, then went to sleep, slept the whole day, the next day when he woke up was confused, had vomiting later on and he was admitted to [facility] for further evaluation. 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 His Flexeril was stopped on Friday and he was started on Baclofen 20 mg TID. Patient's denies any new onset dementia, urinary incontinence and per he has been bed bound or using wheel chair since last summer, denies any frequent falls, may fall once in 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 Per documentation patient is being admitted with AMS, was on baclofen and multiple narcotics. Per hospitalist documentation patient was sleepy and lethargic yesterday (11/30/17). At present patient denies any PIERCE, is very hard of hearing, denies any new onset visual disturbances, speech disturbances, focal motor weakness, sensory loss, neck or back pain. Labs: WBC, Creatinine and UA normal on admission, UDS negative. [] Past Medical History Past Medical History (Chronic Problems): Chronic Problems Low back pain (Chronic) Type II diabetes mellitus (Chronic) Chronic back pain (Chronic) Osteogenesis imperfecta (Chronic) Allergies fentanyl Adverse Reaction (Verified 12/01/17 02:15) lethargic, unresponsive, hallucinations morphine Adverse Reaction (Verified 12/01/17 02:15) lethargic, unresponsive, hallucinations IVP DYE Allergy (Uncoded 12/01/17 02:15) Anaphylaxis Home Medications: Ambulatory Orders Medication Instructions Recorded Surgical History: appendectomy, total knee arthroplasty, - - Hiatal hernia surgery. Psychiatric History: No pertinent psych hx Lives: Spouse/ Significant Other Smoking Status: Current every day smoker Tobacco Use: Non-smoker Alcohol: None Drugs: None - *Family History Maternal History Items: - - No coronary artery disease. Alcohol abuse. Paternal History Items: Stroke Review of Systems Constitutional: Reports: - - complete ROS negative except as documented in HPI Patient Problems: Active and Suspected Problems Right leg DVT (Acute) - Physical Exam General: Alert HEENT: Normocephalic Neck: Supple Lungs: Clear to auscultation Cardiovascular: Normal S1, Normal S2 Abdomen: Bowel Sounds Present Extremities: No clubbing Skin: No rashes Musculoskeletal: No Tenderness to Palpation of Joints or Extremities Neurological: - - awake, alert, AoAx2, CN 2-12 grossly intact, moves all 4 extremities, denies any sensory loss, no cerebellar signs, very hard of hearing, limited neurology examination, Reflexes + B/L B/S/T/K/A, gait deferred Psych/Mental Status: Normal Affect Vital Signs Temp Pulse Resp BP Pulse Ox 99.3 F H 88 18 123/76 H 94 12/01/17 08:00 12/01/17 11:05 12/01/17 08:00 12/01/17 08:00 12/01/17 08:00 Oxygen Delivery Method Room Air Weight: 102.5 kg Body Mass Index (BMI) 26.8 Intake and Output for Last 24 Hours Intake Total 110 / 110 Balance 110 / 110 Laboratory Tests Past 24 Hrs WBC WBC 10.0 RBC 4.40 L Hgb 13.1 Hct 39.6 L MCV 90.0 MCH 29.8 WBC RBC Hgb Hct MCV MCH MCHC RDW RDW Differential Plt Count MPV Immature Gran % (Auto) POC Glucose POC Glucose 225 H 157 H Assessment/Plan Active and Suspected Problems Right leg DVT (Acute) The patient is a 62 year old CM with PMH HLD, DM, depression, H/O encephalopathy, H/O DVT per documentation admitted with AMS. History is obtained from the patient and medical records and documentation. Patient is a poor historian. Per he was doing physical therapy on Friday morning (11/29/17), then suddenly was shaking, found to have SBP >200s at home, then went to sleep, slept the whole day, the next day when he woke up was confused, had vomiting later on and he was admitted to [facility] for further evaluation. 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 His Flexeril was stopped on Friday and he was started on Baclofen 20 mg TID. Patient's denies any new onset dementia, urinary incontinence and per he has been bed bound or using wheel chair since last summer, denies any frequent falls, may fall once in 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 Per documentation patient is being admitted with AMS, was on baclofen and multiple narcotics. Per hospitalist documentation patient was sleepy and lethargic yesterday (11/30/17). At present patient denies any PIERCE, is very hard of hearing, denies any new onset visual disturbances, speech disturbances, focal motor weakness, sensory loss, neck or back pain. Labs: WBC, Creatinine and UA normal on admission, UDS negative. . 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 -At present patient is alert and following commands, though a poor historian, there is no witnessed seizures, no history of seizures, will hold off on EEG -On Baclofen 20mg PO TID at home, avoid abrupt withdrawal, can decrease the dose, will defer to primary team -GI/DVT prophylaxis -PT/OT -Fall precautions -Please call with questions if any -Thank you for allowing us to participate in patient's care and management. I spent 60 minutes taking history, doing physical examination, reviewing medical records, coordinating care and counseling patient and his family. Code Visit Inpatient Willi CHANG M: [id number] Init Hosp L3 12/05/17 1348 <Electronically signed by Carlo Wesley MD> Date Carlo Wesley MD Cosigner Signature (if applicable): Date CC: Danilo Cerda MD; Rush Swain MD Signed DISCHARGE SUMMARY Observed: 12/02/2017 Status: F Source: [place] 3:24 PM [facility] REPOSITORY [facility] Medical Records Department [address] [place] [address] Discharge Summary 12/02/17 1353 MR#: [id number] Acct: [id number] Name: JILL AYALA Rep #: [id number] : 1955 62 From: Reece Smith MD PCP: Status: ADM IN Location: [place] [address] ADDENDUM by Reece Smith MD on 12/02/17 at 1524 Code Visit Please note, there is no acute right leg DVT. Patient had history of DVT many years ago. Please disregard acute DVT in acute problem 12/02/17 1524 <Electronically signed by Reece Smith MD> Date Reece Smith MD cc: Reece Smith MD * Signed Discharge Date and Diagnosis - Problem List Patient Problems: Active and Suspected Problems Right leg DVT (Acute) Date of Admission: 12/01/17 Date of Discharge: 12/02/17 - Primary Discharge Diagnosis Active and Suspected Problems Acute encephalopathy most probably metabolic encephalopathy complicated with polypharmacy of high dose of muscle relaxant and high-dose narcotics - Secondary Discharge Diagnosis Chronic Problems Low back pain (Chronic) Type II diabetes mellitus (Chronic) Chronic back pain (Chronic) Osteogenesis imperfecta (Chronic) Hospital Course and Treatment Operations: - - Right hip arthroplasty Summary of Care Provided: 62 year old male w/ h/o encephalopathy, right leg DVT, and HTN admitted for encephalopathy. 1) Acute encephalopathy most probably metabolic encephalopathy complicated with polypharmacy of high dose of muscle relaxant and high-dose narcotics. Patient mental alertness improved. He was on norco, percocet and flexeril. The patient was seen by neurologist. B12 is more than 2000, folate level high. Ammonia normal. 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 Discussed with the neurologist. Dose of baclofen decreased. MRI brain was done which reported as findings consistent with mild involving NPH. No significant periventricular white matter ischemic changes or evidence for acute infarct. Patient didn't had prior MRI. Patient has cognitive deficit and does not remember recent events but oriented to time, place and person. Patient denies history of seizure. Patient is hard of hearing and beers hearing aids. Infectious process ruled out. Blood culture negative for more than 36 hours. Urine culture negative. 2) Right leg DVT: Years ago. Per pt was on xarelto but not on meds list. Probably won't need further anticoagulation given one time incident and no e/o PE. No trigger noted. 3) Chronic pain: hold sedative meds. try to avoid NSAID as well given possible JULITO with NSAID. OTC acetaminophen if needed. 4) DMII: Resume home meds. Monitor. Discharge plan: Baclofen was stopped. muscle relaxant changed to Flexeril 10 mg 3 times daily as needed. There is no witnessed seizure or history of seizures. Patient has passport service for 8 hours of home health care besides his is main caregiver. Fall precaution. Patient was recommended neurosurgery follow-up to further evaluate for possible NPH. Patient has history of recurrent fall in the past but denies urine incontinence or gait ataxia/muscle incoordination. Referral was made to neurosurgeon, [facility] [place] in 2 weeks. Discharge plan discussed with the patient and his . Discharge medication reconciliation done. Discharge follow-up instructions completed. Discharge Activity: May Not Drive Home Medications: Medications to take at Discharge Ascorbic Acid [Vitamin C] 1,000 mg PO BIDCM 06/17/15 Liraglutide [Victoza 3-Amrik] 1.2 mg SQ DAILY 06/17/15 Metformin HCl 1,000 mg PO BID 06/17/15 Vitamin E 400 unit PO DAILY 06/17/15 Calcium Carbonate [Calcium] 600 mg PO BID #0 08/29/15 Insulin Lispro [Humalog] See Protocol SQ 4X/DAY 08/29/15 Cholecalciferol (Vitamin D3) [Vitamin D3] 1 capsule PO DAILY 05/28/16 Cyanocobalamin (Vitamin B-12) [Vitamin B-12] 2,500 mcg PO DAILY 12/01/17 Docusate Sodium [Colace] 100 mg PO BID 12/01/17 Folic Acid 0.8 mg PO DAILY@0800 12/01/17 Hydrocodone Bitart/Apap 5-325 [[place] 5/325] 1 - 2 tablet PO Q6H PRN PRN 12/01/17 [place]-3 Fatty Acids/Fish Oil [Fish Oil 1,000 mg Capsule] 1,000 mg PO DAILY 12/01/17 Omeprazole [Prilosec] 20 mg PO DAILY 12/01/17 Senna/Docusate Sodium [Senokot-S] 2 tablet PO MOWEFR 12/01/17 Sertraline HCl [Zoloft] 50 mg PO QHS 12/01/17 Tadalafil [Cialis] 5 mg PO PRN PRN 12/01/17 Cyclobenzaprine [Flexeril] 5 mg PO TID PRN PRN #20 tab 12/02/17 Fenofibrate [Tricor] 145 mg PO DAILY #30 tab 12/02/17 Furosemide [Lasix] 10 mg PO DAILY PRN PRN tablet 12/02/17 GlipiZIDE [Glucotrol] 10 mg PO BID #0 12/02/17 Following Prescrptions Were Given to Patient: Cyclobenzaprine [Flexeril] 5 mg PO TID PRN PRN #20 tab PRN Reason: leg muscle spasm Fenofibrate [Tricor] 145 mg PO DAILY #30 tab Primary Care Physician: [facility] Doctor,Out of [NON-STAFF] - Please follow up with your Primary Care Physician in: in 2 weeks Meaningful Use Info Meaningful Use Diagnoses (Choose all that apply): None applicable Code Visit OBSV E AND M: [id number] Observation care discharge 12/02/17 1523 <Electronically signed by Reece Smith MD> Date Reece Smith MD Cosigner Signature (if applicable): Date CC: Reece Smith MD Signed DISCHARGE INSTRUCTION Observed: 12/02/2017 Status: F Source: [place] 1:53 PM [facility] REPOSITORY [facility] Medical Records Department [address] [place] [address] Instructions for Home/Discharge Instructions 12/02/17 1349 MR#: [id number] Acct: [id number] Name: JILL AYALA Rep #: [id number] : 1955 62 From: Reece Smith MD PCP: Status: ADM IN - Discharge Diagnoses Current Active Problems: Current Active and Chronic Problems Right leg DVT (Acute) You will use the following diet at home:: Calorie/Carbohydrate Controlled (specify 1200, 1400, etc) - 1800 ADA diet Your food should be the consistency of: Regular Discharge Activity: May Not Drive Additional Instructions: Refer to Neurosurgeon, [facility] [place] in 2 weeks Allergies/Adverse Reactions: Allergies fentanyl Adverse Reaction (Verified 12/01/17 02:15) lethargic, unresponsive, hallucinations morphine Adverse Reaction (Verified 12/01/17 02:15) lethargic, unresponsive, hallucinations IVP DYE Allergy (Uncoded 12/01/17 02:15) Anaphylaxis Medications to take at Discharge Ascorbic Acid [Vitamin C] 1,000 mg PO BIDCM 06/17/15 Liraglutide [Victoza 3-Amrik] 1.2 mg SQ DAILY 06/17/15 Metformin HCl 1,000 mg PO BID 06/17/15 Vitamin E 400 unit PO DAILY 09/26/15 Calcium Carbonate [Calcium] 600 mg PO BID #0 08/29/15 Insulin Lispro [Humalog] See Protocol SQ 4X/DAY 08/29/15 Cholecalciferol (Vitamin D3) [Vitamin D3] 1 capsule PO DAILY 05/28/16 Cyanocobalamin (Vitamin B-12) [Vitamin B-12] 2,500 mcg PO DAILY 12/01/17 Docusate Sodium [Colace] 100 mg PO BID 12/01/17 Folic Acid 0.8 mg PO DAILY@0800 12/01/17 Hydrocodone Bitart/Apap 5-325 [[place] 5/325] 1 - 2 tablet PO Q6H PRN PRN 12/01/17 [place]-3 Fatty Acids/Fish Oil [Fish Oil 1,000 mg Capsule] 1,000 mg PO DAILY 12/01/17 Omeprazole [Prilosec] 20 mg PO DAILY 12/01/17 Senna/Docusate Sodium [Senokot-S] 2 tablet PO MOWEFR 12/01/17 Sertraline HCl [Zoloft] 50 mg PO QHS 12/01/17 Tadalafil [Cialis] 5 mg PO PRN PRN 12/01/17 Cyclobenzaprine [Flexeril] 5 mg PO TID PRN PRN #20 tab 12/02/17 Fenofibrate [Tricor] 145 mg PO DAILY #30 tab 12/02/17 Furosemide [Lasix] 10 mg PO DAILY PRN PRN tablet 12/02/17 GlipiZIDE [Glucotrol] 10 mg PO BID #0 12/02/17 The following prescriptions were given: Cyclobenzaprine [Flexeril] 5 mg PO TID PRN PRN #20 tab PRN Reason: leg muscle spasm Fenofibrate [Tricor] 145 mg PO DAILY #30 tab Primary Care Physician: [facility] Doctor,Out of [NON-STAFF] - Please follow up with your Primary Care Physician in: in 2 weeks 12/02/17 8730 <Electronically signed by Reece Smith MD> Date Reece Smith MD CC: Dnailo Cerda MD; Rush Swain MD BEDSIDE GLUCOSE Collected: 12/02/2017 Status: F Source: [place] 12:18 PM [facility] REPOSITORY TYPE CODE TESTS RESULT OUT OF REFERENCE UNITS RANGE LAB L501.080 70-110 mg/dL High BEDSIDE GLU 220 Result Comment: MANAGEMENT OF PATIENT CARE PER NURSING PROTOCOL Performed By: #### L501.080 #### [facility] Point of Care [address] [place] [address] BEDSIDE GLUCOSE Collected: 12/02/2017 Status: F Source: DULCE 6:32 AM [facility] REPOSITORY TYPE CODE TESTS RESULT OUT OF REFERENCE UNITS RANGE LAB L501.080 70-110 mg/dL High BEDSIDE GLU 175 Result Comment: Insulin Given MANAGEMENT OF PATIENT CARE PER NURSING PROTOCOL Performed By: #### L501.080 #### [facility] Point of Care [address] [place] [address] BEDSIDE GLUCOSE Collected: 12/01/2017 Status: F Source: DULCE 10:34 PM [facility] REPOSITORY TYPE CODE TESTS RESULT OUT OF REFERENCE UNITS RANGE LAB L501.080 70-110 mg/dL High BEDSIDE GLU 142 Result Comment: MANAGEMENT OF PATIENT CARE PER NURSING PROTOCOL Performed By: #### L501.080 #### [facility] Point of Care [address] [place] [address] BEDSIDE GLUCOSE Collected: 12/01/2017 Status: F Source: DULCE 5:59 PM [facility] REPOSITORY TYPE CODE TESTS RESULT OUT OF REFERENCE UNITS RANGE LAB L501.080 70-110 mg/dL High BEDSIDE GLU 143 Result Comment: MANAGEMENT OF PATIENT CARE PER NURSING PROTOCOL Performed By: #### L501.080 #### [facility] Point of Care [address] [place] [address] BRAIN WITHOUT Observed: 12/01/2017 Status: F Source: DUL[place] CONTRAST 3:29 PM [facility] REPOSITORY [facility] Imaging Services [address] [place] [address] Brain without Contrast MR#: [id number] Acct: [id number] Name: JILL AYALA Rep #: [id number] : 1955 M 62 From: Derek Cuadra MD PCP: Status: ADM IN Study: Brain without Contrast Date of Exam: 12/01/17 Exam# [id number] Ordering Dr: Carlo Wesley MD STUDY: MRI BRAIN WITHOUT CONTRAST REASON FOR EXAM: Male, 62 years old. Altered mental status TECHNIQUE: Standardized multiplanar fat and water weighted pulse sequences were obtained. COMPARISON: CT of the brain on November 30, 2017 FINDINGS: Moderate atrophy and mild periventricular white matter high signal intensity possibly representing resorption of CSF.. The ventricles are disproportionately enlarged relative to the cortical sulci and communicating hydrocephalus or NPH cannot be excluded Normal bilateral basal ganglia. Normal thalami. There is no extra-axial fluid accumulation. There is an arachnoid cyst in the left middle cranial fossa. Normal flow voids within the major intracranial circulation suggesting patency by spin echo criteria. Partial empty sella deformity of uncertain clinical significance., infundibular stalk, optic chiasm and hypothalamus. Normal tectal plate and pineal gland. Normal midbrain, edgar and medulla. Normal cerebellum. Normal basal cisterns. Normal bilateral temporal bones. Normal bilateral internal auditory canals. No demonstrated orbital abnormality, within the constraints of a routine brain study. Normal visualized paranasal sinuses. Normal calvarium and skull base. Normal visualized soft tissue structures. Normal visualized upper cervical spine. MRI/Brain without Contrast IMPRESSION: Findings which may be consistent with mild or evolving normal pressure hydrocephalus. No significant periventricular white matter ischemic changes or evidence for acute infarct Electronically Signed: Derek Cuadra MD at 20:57 EDT , Service support , CC: Taras Wesley MD Newspaper Inserter: Signed BEDSIDE GLUCOSE Collected: 12/01/2017 Status: F Source: DULCE 11:54 AM [facility] REPOSITORY TYPE CODE TESTS RESULT OUT OF REFERENCE UNITS RANGE LAB L501.080 70-110 mg/dL High BEDSIDE GLU 225 Result Comment: MANAGEMENT OF PATIENT CARE PER NURSING PROTOCOL Performed By: #### L501.080 #### [facility] Point of Care [address] [place], [place] [address] BEDSIDE GLUCOSE Collected: 12/01/2017 Status: F Source: DULCE 6:46 AM [facility] REPOSITORY TYPE CODE TESTS RESULT OUT OF REFERENCE UNITS RANGE LAB L501.080 70-110 mg/dL High BEDSIDE GLU 157 Result Comment: MANAGEMENT OF PATIENT CARE PER NURSING PROTOCOL Performed By: #### L501.080 #### [facility] Point of Care [address] [place] [address] CBC W/DIFF, AUTOMATED Collected: 12/01/2017 Status: F Source: [place] 5:40 AM [facility] REPOSITORY TYPE CODE TESTS RESULT OUT OF RANGE REFERENCE UNITS LAB L100.1000 4.4-11.0 K/mm3 Normal WBC 10.0 LAB L100.1200 4.6-6.2 M/mm3 Low RBC 4.40 LAB L100.1300 13.0-16.5 g/dl Normal HGB 13.1 LAB L100.1400 40-54 % Low HCT 39.6 LAB L100.1500 80-94 fL Normal MCV 90.0 LAB L100.1600 27.0-32.0 pg Normal MCH 29.8 LAB L100.1700 32-36 g/gl Normal MCHC 33.1 LAB L100.1810 11.6-14.6 % High RDW CV 15.5 LAB L100.1820 35.1-43.9 fl High RDW SD 50.9 LAB L100.1900 150-450 K/mm3 Normal PLT 281 LAB L100.2000 6.2-12.0 fl Normal MPV 10.2 LAB L100.2100 47-70 % Normal NEUT% 58.4 LAB L100.2200 19-41 % Normal LY% 32.3 LAB L100.2300 0-10 % Normal MONO% 7.1 LAB L100.2400 0-5 % Normal EO% 1.8 LAB L100.2500 0-1 % Normal BASO% 0.2 LAB L100.2550 0.0-0.9 % Normal IM GRAN % 0.200 Result Comment: IG% - Immature Granulocytes (promyelocytes, myelocytes and metamyelocytes) > 1% indicates that a LEFT SHIFT is Present. LAB L100.2620 2.0-7.7 X10 3/uL Normal Absolute Neut 5.8 LAB L100.2720 0.83-4.51 X10 3/ul Normal Absolute Lymph 3.22 Performed By: #### L100.0100, L500.2500 #### [facility] [address] [facility] [place], [place], [address] BASIC METABOLIC Collected: 12/01/2017 Status: F Source: [place] PROFILE (BMP) 5:40 AM [facility] REPOSITORY TYPE CODE TESTS RESULT OUT OF RANGE REFERENCE UNITS LAB L501.0100 74-106 mg/dL High GLU 131 Result Comment: Fasting Glucose result greater than or equal to 126 mg/dL suggests DIABETES MELLITUS per A.D.A. criteria. Please note revised GLUCOSE reference range effective 2017. LAB L501.1000 7-18 mg/dL Normal BUN 12 LAB L501.1100 0.70-1.30 mg/dL Low CREAT,SERUM 0.59 Result Comment: The validity of the calculated GFR AND GFRAA in patients over 70 years has not been determined. Clinical correlation is essential. LAB L501.1110 >60 mL/min Normal EST GFR 147 Result Comment: Non- GFR Calc LAB L501.1115 >60 mL/min Normal EST GFR - AA 178 Result Comment: GFR Calc LAB L501.1255 ml/min Normal Estimated CRCL 163.60 LAB L501.1300 10-20 RATIO High BUN/CRE 20.3 LAB L501.2200 8.5-10 mg/dL .1 CA Normal 9.4 LAB L501.5300 136-14 mmol/L 5 NA Normal 142 LAB L501.5600 3.5-5. mmol/L 1 K Normal 3.7 LAB L501.5900 98-107 mmol/L CL Normal 107 LAB L501.6100 21.0-3 mmol/L 2.0 CO2 Normal 25.0 LAB L501.6200 5-15 GAP Normal 10 Performed By: #### L100.0100, L500.2500 #### [facility] [address] [place], [address] HISTORY AND PHYSICAL Observed: 12/01/2017 Status: F Source: [place] EXAM 3:04 AM [facility] REPOSITORY [facility] Medical Records Department [address] [place] [address] History and Physical 12/01/17 0254 MR#: [id number] Acct: [id number] Name: JILL AYALA Rep #: [id number] : 1955 62 From: Jamal Le MD PCP: NOT, DEFINED Status: ADM IN Y Location: [facility] OP640-4 Problem List (1) Right leg DVT Status: Acute (2) Encephalopathy Status: Acute (3) Fracture, intertrochanteric, right femur Status: Acute (4) Chronic back pain Status: Chronic (5) Type II diabetes mellitus Status: Chronic History of Present Illness Date of Admission: 12/01/17 Chief Complaint: Acute encephalopathy The patient is a 62 year old male w/ h/o encephalopathy, right leg DVT, and HTN admitted for encephalopathy. He was confused this morning per . He is a poor historian. He went to rehab on Friday and did well. Yesterday, he was mostly sleepy and slept for most of the day. This morning he is not himself and cannot answer his with coherent answers. Nothing appeared to make his confusion better or worse. His confusion was severe that it interfered with his ADLs. His became concerned and brought him to the ED for further workup. Past Medical History Past Medical History (Chronic Problems): Chronic Problems Low back pain (Chronic) Type II diabetes mellitus (Chronic) Chronic back pain (Chronic) Osteogenesis imperfecta (Chronic) Allergies fentanyl Adverse Reaction (Verified 12/01/17 02:15) lethargic, unresponsive, hallucinations morphine Adverse Reaction (Verified 12/01/17 02:15) lethargic, unresponsive, hallucinations IVP DYE Allergy (Uncoded 12/01/17 02:15) Anaphylaxis Home Medications: Ambulatory Orders Medication Instructions Recorded Surgical History: appendectomy, total knee arthroplasty, - - Hiatal hernia surgery. Psychiatric History: No pertinent psych hx Smoking Status: Former smoker Tobacco Use: Non-smoker Alcohol: None Drugs: None - *Family History Maternal History Items: - - No coronary artery disease. Alcohol abuse. Paternal History Items: Stroke Review of Systems Constitutional: Denies: Chills, Fever, Weight Change HEENT: Denies: Head Aches, Sinus Congestion, Sinus Drainage Cardiovascular: Denies: Chest Pain, Palpitations Respiratory: Denies: Cough, Shortness of breath at rest, Sputum production Gastrointestinal: Denies: Abdominal Pain, Nausea, Vomiting Genitourinary: Denies: Dysuria Musculoskeletal: Denies: Joint Pain, Joint Tenderness Skin: Denies: Rash, Wounds Neurological: Denies: Numbness, Tingling, Focal weakness Psychiatric: Denies: Anxiety, Depression, Homicidal Ideations, Suicidal Ideations Hematologic/ Lymphatic: Denies: Easy Bruising, Easy Bleeding VTE Information - Inpt Only VTE Present on Admission: No VTE Mechan Device Prophylaxis: None VTE Pharm Prophylaxis ordered?: No Patient Problems: Active and Suspected Problems Right leg DVT (Acute) - Physical Exam General: Alert, Oriented x3, Cooperative HEENT: Atraumatic, PERRLA, EOMI, Normocephalic Neck: Supple, No JVD, Negative Carotid Bruits Lungs: Clear to auscultation, Normal air movement Cardiovascular: Regular rate, No murmurs Abdomen: Bowel Sounds Present, Soft, Non Tender Extremities: No edema, Capillary Refill Less than 3 Seconds Skin: No rashes, No breakdown Musculoskeletal: No Tenderness to Palpation of Joints or Extremities Neurological: Cranial nerves II-XII grossly intact Psych/Mental Status: Normal Affect, Appropriate Vital Signs Temp Pulse Resp BP Pulse Ox 99.2 F H 86 18 128/78 H 96 12/01/17 02:09 12/01/17 02:09 12/01/17 02:09 12/01/17 02:09 12/01/17 02:09 Oxygen Delivery Method Room Air Weight: 102.5 kg Body Mass Index (BMI) 26.8 Assessment/Plan Active and Suspected Problems Right leg DVT (Acute) 62 year old male w/ h/o encephalopathy, right leg DVT, and HTN admitted for encephalopathy. 1) Acute encephalopathy: Unclear etiology. Possible secondary to high dose narcotics and flexeril. He was on norco, percocet and flexeril. Will consider neuro to possible r/o subclinical seizure if persistent. Will get B12, folate, RPR, ammonia, and TSH. Will hold anticoagulation if just in case pt turns for the worse and needs LP in the future. Cultures pending. 2) Right leg DVT: Years ago. Per pt was on xarelto but not on meds list. Probably won't need further anticoagulation given one time incident and no e/o PE. No trigger noted. 3) Chronic pain: Will hold sedative meds. Will also try to avoid NSAID as well given possible JULITO with NSAID. Will give acetaminophen if needed. 4) DMII: Resume home meds. Monitor. 12/01/17 0304 <Electronically signed by Jamal Le MD> Date Jamal Le MD Cosigner Signature: Date (if applicable) CC: DEFINED NOT; Jamal Le MD Signed Observed: 12/01/2017 Status: F Source: [place] CULTURE, BLOOD (WB) 2:47 AM [facility] REPOSITORY BC No growth in 5 days. Performed By: #### M200.1000 #### [facility] [place], [address] LIVER PROFILE Collected: 12/01/2017 Status: F Source: [place] 2:37 AM [facility] REPOSITORY TYPE CODE TESTS RESULT OUT OF RANGE REFERENCE UNITS LAB L501.1500 6.4-8.2 g/dL Normal T PROT 7.5 LAB L501.1800 3.2-5.0 g/dL Normal ALB 3.8 LAB L501.1950 2.2-4.2 g/dL Normal GLOB 3.7 LAB L501.4100 15-37 U/L Low AST 13 LAB L501.4305 45-117 U/L Normal ALK P 51 LAB L501.4405 16-61 U/L Normal ALT 21 Result Comment: Please note revised ALT reference range effective 2017. LAB L501.4600 0.20-1.00 mg/dL Normal T BILI 0.40 LAB L501.4700 0.00-0.30 mg/dL Normal D BILI 0.11 Performed By: #### L505.5000, L500.3400, M100.0650 #### [facility] [address] [place], [address] AMMONIA Collected: 12/01/2017 Status: F Source: [place] 2:37 AM [facility] REPOSITORY TYPE CODE TESTS RESULT OUT OF RANGE REFERENCE UNITS LAB L503.5510 11-32 umol/L Normal AMMONIA 24.0 Performed By: #### L503.5510, L501.4010, L506.0250 #### [facility] [address] [place], [address] TROPONIN-I Collected: 12/01/2017 Status: F Source: [place] 2:37 AM [facility] REPOSITORY Order Comment: 'TROP' Serial specimen #1, #2, #3, or #4: 3 TYPE CODE TESTS RESULT OUT OF RANGE REFERENCE UNITS LAB L501.4010 <0.06 ng/mL Normal < 0.02 TROPONIN-I Result Comment: TROPONIN-I EXPECTED VALUES <0.05 NEGATIVE 0.06 - 0.59 AT RISK OF NC > OR = 0.60 SUGGEST NC Performed By: #### L503.5510, L501.4010, L506.0250 #### [facility] [address] [place], [address] FOLATES, (FOLIC ACID) Collected: 12/01/2017 Status: F Source: [place] 2:37 AM [facility] REPOSITORY Order Comment: 'TROP' Serial specimen #1, #2, #3, or #4: 3 TYPE CODE TESTS RESULT OUT OF REFERENCE UNITS RANGE LAB L506.0250 3.1-55.4 ng/mL High FOLATES 59.60 Performed By: #### L503.5510, L501.4010, L506.0250 #### [facility] [address] [place], [address] VITAMIN B12 Collected: 12/01/2017 Status: F Source: [place] 2:37 AM [facility] REPOSITORY TYPE CODE TESTS RESULT OUT OF REFERENCE UNITS RANGE LAB L503.0105 211-911 pg/mL High Vitamin B12 > 2000 Performed By: #### L503.0105 #### [facility] [address] [place], [address] RAPID PLASMIN REAGIN Collected: 12/01/2017 Status: F Source: [place] (RPR) 2:37 AM [facility] REPOSITORY TYPE CODE TESTS RESULT OUT OF REFERENCE UNITS RANGE LAB L700.5000 NONREACTIVE NONREACTIVE Normal RPR Performed By: #### L700.5000 #### [facility] [address] [place], [address] EMERGENCY DEPARTMENT Observed: 12/01/2017 Status: F Source: [place]UL[place] SUMMARY 12:29 AM [facility] REPOSITORY [facility] Medical Records Department [address] [place] [address] Emergency Department Summary 11/30/17 2308 MR#: [id number] Acct: [id number] Name: JILL AYALA Rep #: [id number] : 1955 62 From: Jcarlos Bird MD PCP: OUT OF TOWN DOCTOR Status: REG ER - ER Visit Summary Date of Service: 11/30/17 Chief Complaint: Sent to ER for evaluation. History of Present Illness: The patient is a 62 M is disoriented to time and place who answers no to every question asked. Review of old records reveals history of type 2 diabetes and encephalopathy. He also had surgery for a right intertrochanteric fracture. He is on Xarelto. Uncertain why. Physical Examination: Vital signs are marked for slight elevation blood pressure 141/94. Head is atraumatic no cephalic. Pupils equal round reactive. Extra muscle intact. TMs are normal. Posterior pharynx without erythema or exudate. Trachea is midline. No carotid bruit. Neck is supple. Heart is regular without murmur, gallop or rub. Lungs are clear to auscultation. Abdomen is soft nontender. He has evidence of progressive disease lower extremity with discolored feet. Cap refill is normal. Alert but not oriented. There is a slight facial droop noted on the left. He moves all extremities. There is no clonus or Babinski sign noted. Test Results: CT of the head reveals no change from prior. He has a left arachnoid cyst noted. CBC is normal. Electrode panel is normal. Hepatic panel is normal. UA is normal. Emergency Department Course and Treatment: Because he is on Xarelto change in mental status will obtain CT to rule out intracranial process. Metabolic infectious workup was undertaken as well and a CBC and electrode panel was ordered as well as UA. I was told by his nurse that state he had nausea and vomiting. Treatment Plan: is present. She states he normally is oriented. He has not been behaving normally for the past 24-48 hours. He was admitted in the past for change in mental status and no cause was determined. Since patient is on Xarelto lumbar puncture is contraindicated. Disposition: Admit [facility] for acute mental status change/encephalopathy unknown etiology Impression: 1. Acute mental status change/encephalopathy of unknown etiology 2. History of type 2 diabetes This note was generated with [employer] dictation software. It may contain incorrect words, spelling, and punctuation that were not noted in review of the chart prior to signing ED Disposition - Plan for ED Patient: Disposition: Acute Care Hospital [facility] Chief Complaint: Confusion Referrals: [facility] Doctor,Out of [Primary Care Provider] - What to do if you have Problems For any increased pain, shortness of breath, bleeding, nausea or vomiting, chest pain, or any unexpected problems, contact your Primary Care Provider. Call [facility] ([phone]) or report to the closest Emergency Room. Call 911 if necessary. 12/01/17 0029 <Electronically signed by Jcarlos Bird MD> Date Jcarlos Bird MD Cosigner Signature (If Indicated): Date CC: OUT OF TOWN DOCTOR BEDSIDE GLUCOSE Collected: 11/30/2017 Status: F Source: DUL[place] 11:06 PM [facility] REPOSITORY TYPE CODE TESTS RESULT OUT OF REFERENCE UNITS RANGE LAB L501.080 70-110 mg/dL High BEDSIDE GLU 164 Result Comment: MANAGEMENT OF PATIENT CARE PER NURSING PROTOCOL Performed By: #### L501.080 #### [facility] Point of Care [address] [place], [place] [id number] URINALYSIS, COMPLETE Collected: 11/30/2017 Status: F Source: [place]UL[place] 11:00 PM [facility] REPOSITORY Order Comment: Order Date: 11/30/17 How was Urine Obtained? CATHETER SPECIMEN TYPE CODE TESTS RESULT OUT OF RANGE REFERENCE UNITS LAB L400.3000 Yellow COLOR Normal Yellow LAB L400.3050 Clear Normal CLARITY Clear LAB L400.3200 Normal mg/dl Normal GLUCOSE, UR Normal LAB L400.3300 Negative mg/dL Normal BILIRUBIN URINE Negative LAB L400.3400 Negative mg/dl Normal KETONE UR Negative LAB L400.3465 1.002-1.030 Normal SP.GR. DIPSTX 1.010 LAB L400.3550 5.0 - 8.0 pH UR Normal 7.0 LAB L400.3600 Negative mg/dl PROT Normal DIPSTX Negative LAB L400.3700 Normal mg/dl Normal UROBILI Normal LAB L400.3750 Negative Normal NITRITE UR Negative LAB L400.3780 Negative /ul Normal OCCULT BLOOD-UR Negative LAB L400.3800 Negative /ul LEUK Normal ESTERASE Negative LAB L400.4050 0-5 /hpf WBC 0 Normal SEEN LAB L400.4100 0-5 /hpf 0 Normal RBC-UA SEEN LAB L400.4150 0-5 /hpf SQUAM Normal EPI 0-5 SEEN LAB L400.4300 None Seen /hpf 0 Normal BACTERIA SEEN LAB L400.4350 <or=2+ /hpf 0 Normal MUCUS, URINE SEEN Performed By: #### L400.0001 #### [facility] [address] [place], [address] URINE DRUG SCREEN Collected: 11/30/2017 Status: F Source: [place] (VISTA) 11:00 PM [facility] REPOSITORY TYPE CODE TESTS RESULT OUT OF RANGE REFERENCE UNITS LAB L505.0075 TO BE Normal CONFIRMED Result Comment: CONFIRMATORY TESTING FOR ALL POSITIVE URINE DRUG SCREEN RESULTS WILL ONLY BE SENT OUT UPON PHYSICIAN ORDER. [facility] Drug Screen methods provide only preliminary analytical test results. A more specific alternate chemical method must be used in order to obtain a confirmed analytical result. Gas chromatography/mass spectrometery (GC/MS) is the preferred confirmatory method. Clinical consideration and professional judgement should be applied to any drug of abuse test result, particularly when preliminary positive results are used. URINE TCA TESTING MUST BE ORDERED SEPARATELY. USE TEST MNEMONIC: [facility] LAB L505.5005 VISTA UDS PH 7 Normal LAB L505.5015 <1000 ng/mL AMPHETAMINES Normal NEGATIVE LAB L505.5025 < 200 ng/mL BARBITIURATES Normal NEGATIVE LAB L505.5035 < 200 ng/mL BENZODIAZIPINE Normal NEGATIVE LAB L505.5045 < 300 ng/mL COCAINE Normal NEGATIVE LAB L505.5055 < 500 ng/mL ECSTACY Normal NEGATIVE LAB L505.5065 < 300 ng/mL METHADONE Normal NEGATIVE LAB L505.5075 < 300 ng/mL OPIATES Normal NEGATIVE LAB L505.5085 < 25 ng/mL PCP Normal NEGATIVE LAB L505.5095 < 50 ng/mL THC Normal NEGATIVE Performed By: #### L505.5000, L500.3400, M100.0650 #### [facility] [address] [place], [address] Observed: 11/30/2017 Status: F Source: [place] CULTURE, URINE 11:00 PM [facility] REPOSITORY Urine Culture Culture exhibits no growth. Performed By: #### L505.5000, L500.3400, M100.0650 #### [facility] [address] [facility] [place], [address] BRAIN/HEAD WITHOUT Observed: 11/30/2017 Status: F Source: [place] CONTRAST 10:43 PM [facility] REPOSITORY [facility] Imaging Services [address] [place] [address] Brain/Head without Contrast MR#: [id number] Acct: [id number] Name: JILL AYALA Rep #: [id number] : 1955 M 62 From: Rosanna Laurent MD PCP: OUT OF TOWN DOCTOR Status: REG ER Study: Brain/Head without Contrast Date of Exam: 11/30/17 Exam# [id number] Ordering Dr: Jcarlos Bird MD CT Head or Brain W/O Contrast INDICATION: ALTERED MENTAL STATUS AND INCREASING CONFUSION SINCE YESTERDAYHX:DIABETES,JAW CANCER,OSTEOGENISIS IMPERFECTA COMPARISON: May 28, 2016 , August 29, 2015 TECHNIQUE: Noncontrast axial CT examination of the brain. Radiation dose optimization technique applied. FINDINGS: The ventricular system is prominent in size, unchanged compared to the prior study with colpocephalic appearance suggestive of (partial) absence of the corpus callosum. Left anterior temporal arachnoid cyst is stable. Toure-white matter junction is distinct. There is no evidence of acute intracranial hemorrhage, mass effect, midline shift, or abnormal extra-axial collection. The calvarium is intact and the visualized paranasal sinuses and mastoid air cells are clear. 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 Left anterior temporal arachnoid cyst, stable. No acute intracranial abnormality. at 0017 Reported and signed by: Rosanna Laurent MD Electronically Signed: Rosanna Laurent MD at 23:15 EDT Tel , Service support , CC: OUT OF TOWN DOCTOR; Jcarlos Bird MD Newspaper Inserter: Signed CBC W/DIFF, AUTOMATED Collected: 11/30/2017 Status: F Source: [place] 10:35 PM [facility] REPOSITORY TYPE CODE TESTS RESULT OUT OF RANGE REFERENCE UNITS LAB L100.1000 4.4-11.0 K/mm3 Normal WBC 8.1 LAB L100.1200 4.6-6.2 M/mm3 Normal RBC 4.73 LAB L100.1300 13.0-16.5 g/dl Normal HGB 13.8 LAB L100.1400 40-54 % Normal HCT 42.9 LAB L100.1500 80-94 fL Normal MCV 90.7 LAB L100.1600 27.0-32.0 pg Normal MCH 29.2 LAB L100.1700 32-36 g/gl Normal MCHC 32.2 LAB L100.1810 11.6-14.6 % High RDW CV 15.5 LAB L100.1820 35.1-43.9 fl High RDW SD 51.6 LAB L100.1900 150-450 K/mm3 Normal PLT 301 LAB L100.2000 6.2-12.0 fl Normal MPV 10.3 LAB L100.2100 47-70 % Normal NEUT% 56.3 LAB L100.2200 19-41 % Normal LY% 35.7 LAB L100.2300 0-10 % Normal MONO% 5.5 LAB L100.2400 0-5 % Normal EO% 2.2 LAB L100.2500 0-1 % Normal BASO% 0.2 LAB L100.2550 0.0-0.9 % Normal IM GRAN % 0.100 Result Comment: IG% - Immature Granulocytes (promyelocytes, myelocytes and metamyelocytes) > 1% indicates that a LEFT SHIFT is Present. LAB L100.2620 2.0-7.7 X10 3/uL Normal Absolute Neut 4.6 LAB L100.2720 0.83-4.51 X10 3/ul Normal Absolute Lymph 2.90 Performed By: #### L100.0100 #### [facility] [address] [place], [place], [address] BASIC METABOLIC Collected: 11/30/2017 Status: F Source: [place] PROFILE (BMP) 10:35 PM [facility] REPOSITORY TYPE CODE TESTS RESULT OUT OF RANGE REFERENCE UNITS LAB L501.0100 74-106 mg/dL High GLU 155 Result Comment: Fasting Glucose result greater than or equal to 126 mg/dL suggests DIABETES MELLITUS per A.D.A. criteria. Please note revised GLUCOSE reference range effective 2017. LAB L501.1000 7-18 mg/dL Normal BUN 13 LAB L501.1100 0.70-1.30 mg/dL Low CREAT,SERUM 0.66 Result Comment: The validity of the calculated GFR AND GFRAA in patients over 70 years has not been determined. Clinical correlation is essential. LAB L501.1110 >60 mL/min Normal EST GFR 130 Result Comment: Non- GFR Calc LAB L501.1115 >60 mL/min Normal EST GFR - AA 158 Result Comment: GFR Calc LAB L501.1255 ml/min Normal Estimated CRCL 134.92 LAB L501.1300 10-20 RATIO BUN/CRE Normal 19.8 LAB L501.2200 8.5-10 mg/dL .1 CA Normal 10.0 LAB L501.5300 136-14 mmol/L 5 NA Normal 140 LAB L501.5600 3.5-5. mmol/L 1 K Normal 4.1 LAB L501.5900 98-107 mmol/L CL Normal 104 LAB L501.6100 21.0-3 mmol/L 2.0 CO2 Normal 23.0 LAB L501.6200 5-15 GAP Normal 13 Performed By: #### L500.2500, L500.3400 #### [facility] [address] [facility]. [place], [place], [address] LIVER PROFILE Collected: 11/30/2017 Status: F Source: [place] 10:35 PM [facility] REPOSITORY TYPE CODE TESTS RESULT OUT OF RANGE REFERENCE UNITS LAB L501.1500 6.4-8.2 g/dL Normal T PROT 8.0 LAB L501.1800 3.2-5.0 g/dL Normal ALB 4.2 LAB L501.1950 2.2-4.2 g/dL Normal GLOB 3.8 LAB L501.4100 15-37 U/L Normal AST 15 LAB L501.4305 45-117 U/L Normal ALK P 57 LAB L501.4405 16-61 U/L Normal ALT 22 Result Comment: Please note revised ALT reference range effective 2017. LAB L501.4600 0.20-1.00 mg/dL Normal T BILI 0.50 LAB L501.4700 0.00-0.30 mg/dL Normal D BILI 0.11 Performed By: #### L500.2500, L500.3400 #### [facility] [address] [facility]. [place], [place], [id number] ALLERGIES ALLERGIES DATE TYPE / CODE NAME / CODE REACTION SEVERITY SOURCE Drug morphine/F006 lethargic, Unknown [place] 8 Allergy/065101988( 918664(RXNORM unresponsive, Community SNOMED CT) ) [facility] Repository Drug fentanyl/F006 lethargic, Unknown [place] 8 Allergy/796822869( 251847(RXNORM unresponsive, [facility] SNOMED CT) ) [facility] Hospital Repository Miscellaneous IVP DYE Anaphylaxis Unknown Reeder 8 Allergy/641981502( [facility] SNOMED CT) Hospital Repository Drug CONTRAST Moderate Martin Pomerene Allergy/090365906( MEDIA, IODINE ([facility] SNOMED CT) RELATED/79679 Modifier) Hospital 316(RXNORM) (Qualifier Repository Value) ENCOUNTERS ENCOUNTERS ADMIT/DISCHARGE ACCOUNT ADMITTING ENCOUNTER LOCATION SOURCE NUMBER CLASS 09/07/2018/ [id number] Ambulatory [place] 8 5 [facility] ing:SD Repository 07/06/2018/ [id number] Ambulatory [place] [address] [place] [address] ing:[facility] Repository 06/02/2018/ [id number] PRISCA [address] Repository 04/27/2018 [id number] Ambulatory [place] 5 [facility] ing:RAD Repository 02/20/2018/ [id number] PRISCA JANAY Ambulatory [address] Repository 12/18/2017/ [id number] FRANCINE, Ambulatory [address] Repository 12/05/2017/ [id number] White, Meme Inpatient Reeder [place] 8 4 Encounter [facility] ing:[id number]: Repository [id number]: 1 12/05/2017 [id number] White, Meme Ambulatory BMSBuilding:B [place] 3 MS.[facility] Repository 12/05/2017 [id number] White, Meme Ambulatory BMSBuilding:B [place] 3 MS.[facility] Repository 12/05/2017 [id number] White, Meme Ambulatory BMSBuilding:B [place] 9 MS.[facility] Repository 12/05/2017 [id number] White, Meme Ambulatory BMSBuilding:B [place] 4 MS.[facility] Repository 12/05/2017 [id number] White, Meme Ambulatory BMSBuilding:B [place] 7 MS.[facility] Repository 12/05/2017 [id number] White, Meme Ambulatory BMSBuilding:B [place] 3 MS.[facility] Repository 12/05/2017 [id number] White, Meme Ambulatory BMSBuilding:B [place] 9 MS.[facility] Repository 12/05/2017 [id number] White, Meme Ambulatory BMSBuilding:B [place] 9 MS.[facility] Repository 12/05/2017 [id number] White, Meme Ambulatory BMSBuilding:B Ducle 8 MS.[facility] Repository 12/01/2017/ [id number] [facility] Ambulatory Reeder [place] 8 8 [facility] ing:MV2Rkqb: Repository PR330Xdc: 1 12/01/2017 [id number] [facility], [facility] Ambulatory BMSBuilding:B [place] 8 MS.[facility] Repository 12/01/2017 [id number] [facility], [facility] Ambulatory BMSBuilding:B [place] 9 MS.[facility] Repository PAYERS PAYERS ENCOUNTER GUARANTOR PAYER SUBSCRIBER SOURCE 09/07/2018 JILL A Primary JILL A Reeder [id number] SR Insurance:MEDICARE [facility]: [address], PART A BPolicy Number: [id number] Health Care Facility [address]Aky: [id number] Repository Date:2018-08-06 () 09/07/2018 Secondary JILL A Reeder Insurance:[facility]: [facility] cy Number: [id number] Hospital [id number] Repository Date:2018-08-06 09/07/2018 Tertiary NOT GIVENUNK [place] Insurance:SELF PAY [facility] Number: Effective Repository Date:2018-08-06 07/06/2018 JILL A Primary JILL A [place] [id number] SR Insurance:MEDICARE [facility]KDOB: [address], PART A BPolicy Number: [id number] Health Care Facility [address]Tfy: [id number] Repository Date:2018-06-29 () 07/06/2018 Secondary JILL A Reeder Insurance:[facility]ICAIDDign[facility] Health [facility] Hospitali NEWKIRKDOB: Community cy Number: [id number] Hospital [id number] Repository Date:2018-06-29 07/06/2018 Tertiary NOT GIVENUNK Reeder Insurance:SELF PAY [facility] Number: Effective Repository Date:2018-06-29 06/02/2018 JILL NEWKIRKDOB: Primary JILL A Martin Figueroa Insurance:MEDICARE NEWKIRKDOB: [facility] [id number] [place] [address], Number: [address] Repository [place] [address]Pek: [id number] [address] [place] [address] Date:Plan Name: [id number] () 06/02/2018 Secondary JILL A Martin Figueroa Insurance:MEDICAID NEWKIRKDOB: [facility] [id number] Hospital Number: 19 [facility] Repository [id number] [address] [place] [address] Date:Plan Name: [id number] 04/27/2018 JILL A Primary JILL A Reeder [id number] SR Insurance:MEDICARE NEWRKDOB: [address], PART B [facility] [id number] Health Care Facility [address]Iwi: Number: Repository [id number] () Date:2018-04-27 04/27/2018 Secondary JILL A Reeder Insurance:MEDICAIDPol NEWKIRKDOB: Community cy Number: [id number] Hospital [id number] Repository Date:2018-04-27 04/27/2018 Tertiary NOT GIVENUNK [place] Insurance:SELF PAY [facility] Number: Effective Repository Date:2018-04-27 02/20/2018 JILL NEWKIRKDOB: Primary JILL NEWKIRKDOB: Martin Figueroa Insurance:MEDICARE [id number] [facility] 0 [facility] [address], Number: 83[facility], Repository [place] [address]Buo: [id number] [id number] Date:Plan Name: () 02/20/2018 Secondary JILL NEWBRITTANIERKDOB: Martin Figueroa Insurance:MEDICAID [id number] [facility] [address] [facility] [address] Hospital Number: 22[place], [place] Repository [id number] Date:Plan Name:X1 12/18/2017 JILL NEWKIRKDOB: Primary JILL NEWKIRKDOB: Martin Parkerne [id number] Insurance:MEDICARE [id number] [facility] RECURRING REFERENCE [address] Number: 83[facility], Repository [place] [address]Xnq: [id number] Ct [id number] Date:Plan Name: () 12/18/2017 Secondary JILL A Martin Figueroa Insurance:MEDICAID NEWKIRKDOB: [facility] [id number] Hospital Number: 19 [facility] [id number] [address] [place] [address] Date: [id number] 12/05/2017 JILL A Primary JILL A Dulce [id number] Sr Insurance:ANTHEM NEWBRITTANIERKDOB: Community [address], MEDICARE PPOPolicy [id number] Health Care Facility [address]Fwl: Number: Repository [id number] () Date:7106-28-77OC[address] [address]KG: 12/05/2017 Secondary JILL A Reeder Insurance:MEDICAIDPoli NEWKIRKDOB: Community cy Number: [id number] Hospital [id number] Repository Date:2017-12-05 12/05/2017 Tertiary NOT GIVENUNK Reeder Insurance:SELF PAY [facility] Number: Effective Repository Date:2017-12-05 12/05/2017 JILL A Primary JILL A Dulce [id number] Sr Insurance:ANTHEM NEWKIRKDOB: Community [address], MEDICARE PPOPolicy [id number] Health Care Facility [address]Cns: Number: Repository [id number] (HP) Date:4959-79-74XK [address]DLNF[place], [place] [address]YS: 12/05/2017 Secondary JILL A Reeder Insurance:MEDICAIDPoli SALORKDOB: Community cy Number: [id number] Hospital [id number] Repository Date:2017-12-05 12/05/2017 Tertiary NOT GIVENUNK Reeder Insurance:SELF PAY [facility] Number: Effective Repository Date:2017-12-05 12/05/2017 JILL A Primary JILL A Reeder [id number] Sr Insurance:[facility] PANCHITOOB: Community [address], MEDICARE PPOPolicy [id number] [place] [address]Ram: Number: Repository [id number] (HP) Date:8761-17-29JR [address]YCFKHUT, [place] [address]LB: 12/05/2017 Secondary JILL A Reeder Insurance:MEDICAIDPoli SALOKDOB: Community cy Number: [id number] Hospital [id number] Repository Date:2017-12-05 12/05/2017 Tertiary NOT GIVENUNK Reeder Insurance:SELF PAY [facility] Number: Effective Repository Date:2017-12-05 12/05/2017 JILL A Primary JILL A Reeder [id number] Sr Insurance:ROSAMARIA PANCHITOOB: Community [address], MEDICARE PPOPolicy [id number] Health Care Facility [address]Apo: Number: Repository [id number] (HP) Date:0616-19-32QV [address]KZGSKUC, [place] [address]LS: 12/05/2017 Secondary JILL A Dul[place] Insurance:MEDICAIDPoli NEWBRITTANIERKDOB: Community cy Number: [id number] Hospital [id number] Repository Date:2017-12-05 12/05/2017 Tertiary NOT GIVENUNK [place] Insurance:SELF PAY [facility] Number: Effective Repository Date:2017-12-05 12/05/2017 JILL A Primary JILL A Dulce [id number] Sr Insurance:ROSAMARIA CESILIAKDOB: Community [address], MEDICARE PPOPolicy [id number] [address]Vxi: Number: Repository [id number] (HP) Date:3425-78-55YX [address]ILFTN, [place] [address]GR: 12/05/2017 Secondary JILL A Reeder Insurance:MEDICAIDPoli [facility]ERKD[facility]: [facility] cy Number: [id number] [place] [address] [id number] Repository Date:2017-12-05 12/05/2017 Tertiary NOT GIVENUNK Reeder Insurance:SELF PAY [facility] Number: Effective Repository Date:2017-12-05 12/05/2017 JILL A Primary JILL A Dulce [id number] Sr Insurance:ROSAMARIA CESILIAKDOB: Community [address], MEDICARE PPOPolicy [id number] [address]Kfb: Number: Repository [id number] (HP) Date:0798-64-31IS [address]MWMTLJM, [place] [address]QR: 12/05/2017 Secondary JILL A Reeder Insurance:MEDICAIDDignity Health Arizona General Hospitali [facility]ALTHKD[facility]: [facility] cy Number: [id number] [place] [address] [id number] Repository Date:2017-12-05 12/05/2017 Tertiary NOT GIVENUNK Reeder Insurance:SELF PAY [facility] Number: Effective Repository Date:2017-12-05 12/05/2017 JILL A Primary JILL A Dulce [id number] Sr Insurance:[facility] PANCHITOOB: Community [address], MEDICARE PPOPolicy [id number] [address]Yvp: Number: Repository [id number] (HP) Date:8468-72-45JX [address]ESCVXAK, [place] [address]AC: 12/05/2017 Secondary JILL A Reeder Insurance:MEDICAIDPoli NEWBRITTANIERKDOB: Community cy Number: [id number] [place] [address] [id number] Repository Date:2017-12-05 12/05/2017 Tertiary NOT GIVENUNK [place] Insurance:SELF PAY [facility] Number: Effective Repository Date:2017-12-05 12/05/2017 JILL A Primary JILL A Reeder [id number] Sr Insurance:CAS FLANAGANOB: Community [address], MEDICARE PPOPolicy [id number] [place] [address]Ikw: Number: Repository [id number] (HP) Date:7060-34-78ZU [address] [place] [address]PX: 12/05/2017 Secondary JILL A Reeder Insurance:MEDICAIDYalobusha General HospitalKDOB: [facility] cy Number: [id number] [place] [address] [id number] Repository Date:2017-12-05 12/05/2017 Tertiary NOT GIVENUNK [place] Insurance:SELF PAY [facility] Number: Effective Repository Date:2017-12-05 12/05/2017 JILL A Primary JILL A Dulce [id number] Sr Insurance:CAS FLANAGANOB: Community [address], MEDICARE PPOPolicy [id number] [address]Crc: Number: Repository [id number] (HP) Date:4947-83-51IO [address]DOSOBQX[address] [place] [address]MF: 12/05/2017 Secondary JILL A [place] [facility] SALORKDOB: [facility] cy Number: [id number] [place] [address] [id number] Repository Date:2017-12-05 12/05/2017 Tertiary NOT GIVENUNK [place] Insurance:SELF PAY [facility] Number: Effective Repository Date:2017-12-05 12/05/2017 JILL A Primary JILL A Reeder [id number] Sr Insurance:CAS LEONGC.S. MOTT CHILDREN'S HOSPITALOB: Community [address], MEDICARE PPOPolicy [id number] [place] [address]Tbq: Number: Repository [id number] (HP) Date:6887-89-12CA [address] [place] [address]AJ: 12/05/2017 Secondary JILL A [place] Insurance:MEDICAIDPoli NEWBRITTANIERKDOB: Community cy Number: [id number] Hospital [id number] Repository Date:2017-12-05 12/05/2017 Tertiary NOT GIVENUNK Reeder Insurance:SELF PAY [facility] Number: Effective Repository Date:2017-12-05 12/01/2017 JILL A Primary JILL A Dulce [id number] Sr Insurance:CAS FLANAGANOB: Community [address], MEDICARE PPOPolicy [id number] Health Care Facility [address]Ptv: Number: Repository [id number] (HP) Date:5354-93-45OY[address] [address]HK: 12/01/2017 Secondary JILL A [place] Insurance:MEDICAIDPoli NEWBRITTANIERKDOB: Community cy Number: [id number] Hospital [id number] Repository Date:2017-11-30 12/01/2017 Tertiary NOT GIVENUNK Reeder Insurance:SELF PAY [facility] Number: Effective Repository Date:2017-11-30 12/01/2017 JILL A Primary JILL A Reeder [id number] Sr Insurance:CAS FLANAGANOB: Community [address], MEDICARE PPOPolicy [id number] Health Care Facility [address]Dph: Number: Repository [id number] (HP) Date:0933-49-46AL[address] [address]ZJ: 12/01/2017 Secondary JILL A Dulce Insurance:MEDICAIDPoli NEWKIRKDOB: Community cy Number: [id number] Hospital [id number] Repository Date:2017-11-30 12/01/2017 Tertiary NOT GIVENUNK Reeder Insurance:SELF PAY [facility] Number: Effective Repository Date:2017-12-01 12/01/2017 JILL A Primary JILL A Dulce [id number] Sr Insurance:CAS FLANAGANOB: Community [address] [place] [address], MEDICARE PPOPolicy [id number] [place] [address]Boi: Number: Repository [id number] (HP) Date:7081-32-77UF[address] [address]JW: 12/01/2017 Secondary JILL A Reeder Insurance:MEDICAIDPoli [facility] MEDICAL CENTERJAKEOB: Community cy Number: [id number] Hospital [id number] Repository Date:2017-11-30 12/01/2017 Tertiary NOT GIVENUNK [place] Insurance:SELF PAY [facility] Number: Effective Repository Date:2017-12-01
== END 2018-09-07 12:31 | disposition home or self-care (01) ==
LOC: SDC 10:04
PROVIDERS: Family Provider Nurse Practitioner Family; PCP Nurse Practitioner Family; Referring Provider Anesthesiology Pain Medicine; Visit Provider Anesthesiology Pain Medicine
PROC: 3E0S3BZ Introduction of Anesthetic Agent into Epidural Space, Percutaneous Approach (ICD-10-PCS; CPT 62282; principal; 2018-09-07 11:25)
DX: M51.17 Intervertebral disc disorders with radiculopathy, lumbosacral region (principal); G89.29 Other chronic pain; E11.9 Type 2 diabetes mellitus without complications; I10 Essential (primary) hypertension; E78.00 Pure hypercholesterolemia, unspecified; K21.9 Gastro-esophageal reflux disease without esophagitis; F32.9 Major depressive disorder, single episode, unspecified; F41.9 Anxiety disorder, unspecified; Z79.4 Long term (current) use of insulin; Z79.899 Other long term (current) drug therapy; F17.200 Nicotine dependence, unspecified, uncomplicated; Z86.718 Personal history of other venous thrombosis and embolism; Z85.819 Personal history of malignant neoplasm of unspecified site of lip, oral cavity, and pharynx
CPT/HCPCS: 01992; 62323; 64483; 77003; 82962; J7120; J3490

== ENCOUNTER 2019-05-10 07:56 | Day surgery (SDC) | payer MEDICARE, MEDICAID, SELFPAY ==
[2019-05-10 08:32] VITALS: BP 131/81; PULSE 76; RESP 18; TEMP 37; O2SAT 96; BMI 33.2
[2019-05-10 08:56] LABS: Bedside Glucose 222 mg/dL (70-110)
[2019-05-10] MEDS: MethylPREDNISolone Acetate 80 MG/ML Vial (09:16)
[2019-05-10] MEDS: Bupivacaine 0.25% 30 ML Vial (09:16)
--- NOTE | 2019-05-10 09:20 | RAD_ITS ---
STUDY: X-RAY - PELVIS AND RIGHT HIP REASON FOR EXAM: Right hip injection. TECHNIQUE: 3 fluoroscopic images of the right hip. COMPARISON: Radiographs 04/27/2018. FINDINGS: There is intra-articular right hip contrast. There is operative reduction internal fixation of proximal right femoral fracture as on the prior study. 23.7 seconds of fluoroscopy time was used. Electronically Signed: Vishnu Perez MD at 10:35 EDT Tel , Service support , RAD/Fluoro Guided Needle Placement
[2019-05-10 09:26] VITALS: BP 131/81; BP 139/77; PULSE 74; RESP 16; TEMP 36.2; O2SAT 96
[2019-05-10 09:30] VITALS: BP 131/81; BP 159/88; PULSE 71; RESP 16; O2SAT 98
[2019-05-10 09:35] VITALS: BP 131/81; BP 146/86; PULSE 72; RESP 16; O2SAT 96
[2019-05-10 09:39] VITALS: BP 131/81; BP 146/85; PULSE 74; RESP 16; TEMP 36.2; O2SAT 97
[2019-05-10 10:00] VITALS: BP 131/81
--- NOTE | 2019-05-10 17:58 | OP.PCM_ITS ---
Problem List (1) Unilateral primary osteoarthritis, right hip Status: Chronic Report of Operation Date of Procedure: 05/10/19 Description of Surgical Findings:: PROCEDURE: Right hip intra-articular steroid injection under fluoroscopic guidance PREOPERATIVE DIAGNOSIS: Osteoarthritis of the right hip POSTOPERATIVE DIAGNOSIS: Osteoarthritis of the right hip ANESTHESIA: MAC COMPLICATIONS: None BLOOD LOSS: Minimal PROCEDURE IN DETAIL: History and physical today was reviewed. Risks and benefits of the procedure were explained. The patient understood, agreed to our procedure, and informed consent was obtained. IV inserted per routine protocol. The patient was taken to the operating room, placed in a supine position the right hip area was prepped and draped in a sterile fashion using iodine x3 nephroscopy guidance AP view of the right hip joint was visualized the skin and subcutaneous tissue incised approximately 3 cc of 1% lidocaine using a 25-gauge regular needle approximately 3 cm cephalad to the right greater trochanter under direct vision fluoroscopy on AP view using a 22-gauge 5 inch spinal needle using the lateral approach the needle passed through the skin to tip of the needle's maneuver and directed towards the superior most aspect of the hip joint once the tip of the knees to the was at the facility of the joint after negative aspiration for blood and positive aspiration of synovial fluid a total of 3 cc of contrast were injected to confirm correct placement of the needle as well as halo spread around the hip joint after repeated negative aspiration for blood and repeated confirmation of AP as well as oblique view a total of 10 cc of preservative-free 0.25% Marcaine with 80 mg of Depo-Medrol were injected easily. The needle was then removed intact. The patient experienced no signs or symptoms intrathecal, intravascular inje ction. The patient experienced no paraesthesia. The procedure was completed without any apparent difficult, any complication. The patient appeared to tolerate well. ASSESSMENT AND PLAN: This is a 63-year-old male with osteoarthritis of the right hip status post right hip intra-articular steroid injection under fluoroscopic guidance. The patient will continue his current medications. The patient will follow in approximately 2 weeks for reevaluation.
== END 2019-05-10 10:07 | disposition home or self-care (01) ==
LOC: SDC 07:59 → AC 08:00
PROVIDERS: Family Provider Student in an Organized Health Care Education/Training Program; PCP Student in an Organized Health Care Education/Training Program; Referring Provider Anesthesiology Pain Medicine; Visit Provider Anesthesiology Pain Medicine
PROC: 3E0U3GC Introduction of Other Therapeutic Substance into Joints, Percutaneous Approach (ICD-10-PCS; CPT 20610; principal; 2019-05-10 09:15)
DX: M16.11 Unilateral primary osteoarthritis, right hip (principal); M51.37 Other intervertebral disc degeneration, lumbosacral region; M47.27 Other spondylosis with radiculopathy, lumbosacral region; G89.29 Other chronic pain; M48.56XA Collapsed vertebra, not elsewhere classified, lumbar region, initial encounter for fracture; M79.10 Myalgia, unspecified site; Q78.0 Osteogenesis imperfecta; E11.9 Type 2 diabetes mellitus without complications; E78.5 Hyperlipidemia, unspecified; E55.9 Vitamin D deficiency, unspecified; K21.9 Gastro-esophageal reflux disease without esophagitis; Z79.4 Long term (current) use of insulin; Z79.891 Long term (current) use of opiate analgesic; Z79.899 Other long term (current) drug therapy
CPT/HCPCS: 20610; 76000; 77002; 82962; J7120